=== PATIENT | female | born 1995 | race Caucasian/White ===

== ENCOUNTER 2017-07-14 00:28 | Emergency (ER) | payer BC, SELFPAY | END 2017-07-14 04:21 | disposition home or self-care (01) | PROVIDERS: Emergency Provider Emergency Medicine; Family Provider Family Medicine; Visit Provider Emergency Medicine | DX: K52.9 Noninfective gastroenteritis and colitis, unspecified (principal); R55 Syncope and collapse | CPT/HCPCS: 36415; 80053; 81001; 81025; 82150; 83690; 85025; 87275; 87276; 96365; 96367; 96375; 99284; J2405 ==

== ENCOUNTER 2017-08-17 17:20 | Emergency (ER) | payer BC, SELFPAY ==
[2017-08-17 18:48] VITALS: BP 139/88; PULSE 83; RESP 20; TEMP 36.9; O2SAT 100; BMI 31.9
--- NOTE | 2017-08-17 19:27 | HMH.EDUTC ---
[facility] [place] Impression: Sinusitis Qualifiers: Sinusitis location: maxillary Chronicity: acute Recurrence: not specified as recurrent Qualified Code(s): J01.00 - Acute maxillary sinusitis, unspecified Disposition: Home, Self-Care Condition on Discharge: Good Additional Instructions: Flonase [id number] Tylenol Motrin as needed for pain or fever If symptoms worsen or do not improve return or be seen in the ER follow-up with primary care this week if no improvement Prescriptions: Azithromycin [Zithromax 250mg tab] 250 mg PO DIRECTED #6 tab Referrals: Jonathan Walsh MD [Primary Care Provider] - Time of Disposition: 19:33 Medical Decision Making Vital Signs: 08/17/17 18:48 Temperature 98.4 F Temperature Source Temporal Artery Scan Pulse Rate [Radial] 83 Respiratory Rate 20 Blood Pressure [Right Arm] 139/88 Blood Pressure Mean [Right Arm] 105 Blood Pressure Source [Right Arm] Automatic Cuff Blood Pressure Position [Right Arm] Sitting 02 Sat by Pulse Oximetry 100 Oxygen Delivery Method Room Air - Braydon Inquiry Pt receiving controlled substance: No [facility] [place] - General Chief complaint: Urgent Treatment Center Stated complaint: sinus Time Seen by Provider: 08/17/17 19:27 Mode of Arrival: Ambulatory Source of Information: Patient Limitations: No Limitations Description of Symptoms (Recalled from Triage Doc. by RN): PT STATES SINUS HEADACHE AND DRINAGE X2 DAYS HEENT Symptoms (Recalled from RN notes): No Resp Symptoms (Recalled from RN notes): No Skin Symptoms (Recalled from RN notes): No MS Symptoms (Recalled from RN notes): No Functional Status (Recalled from RN notes): NA - Related Data Home Medications Medication Instructions Recorded Confirmed Norgestimate-Ethinyl Estradiol 1 mg PO DAILY 08/17/17 08/17/17 [Tri-Sprintec Tablet] Topiramate [Topiramate] 25 mg PO DAILY 08/17/17 08/17/17 Previous Rx's Medication Instructions Recorded Azithromycin [Zithromax 250mg 250 mg PO DIRECTED #6 tab 08/17/17 tab] Allergies Allergy/AdvReac Type Severity Reaction Status Date / Time No Known Allergies Allergy Verified 08/17/17 18:52 - Worker's Comp Is this a Worker's Comp case?: No [facility] History I have reviewed the patient's past medical history: Yes Amputation: No Fractures: No - *Social History Smoking Status: Never smoker Alcohol Intake: never - Psychiatric History Expresses thoughts of harming self/others: None Suicide Plan Description: No Plan ROS Obtained: Yes All systems reviewed & no additional complaints - Constitutional Constitutional: Reports system reviewed and no additional complaints, except as docu - Eyes Eyes: Reports system reviewed and no additional complaints, except as docu - ENT Ears, Nose, Mouth, and Throat: Reports system reviewed and no additional complaints, except as docu, Reports nasal congestion, Reports nasal discharge, Reports nose pain, Reports sinus pressure - Cardiovascular Cardiovascular: Reports system reviewed and no additional complaints, except as docu - Respiratory Respiratory: Yes system reviewed and no additional complaints, except as docu - Gastrointestinal Gastrointestingal: Reports: system reviewed and no additional complaints, except as docu - Musculoskeletal Musculoskeletal: Reports system reviewed and no additional complaints, except as docu - Integumentary/Breasts Skin/Breast: Reports system reviewed and no additional complaints, except as docu - Neurologic Neurologic: Reports system reviewed and no additional complaints, except as docu - Endocrine Endocrine: Reports system reviewed and no additional complaints, except as docu - Hematologic/Lymphatic Henatologic/Lymphatic: Reports system reviewed and no additional complaints, except as docu - Allergic/Immunologic Allergic/Immunologic: Reports system reviewed and no additional complaints, except as docu Physical Exam
--- NOTE | 2017-08-17 19:30 | ED_ITS ---
[facility] [place] Clinical Impression: Sinusitis Qualifiers: Sinusitis location: maxillary Chronicity: acute Recurrence: not specified as recurrent Qualified Code(s): J01.00 - Acute maxillary sinusitis, unspecified Disposition: Home, Self-Care Condition on Discharge: Good Additional Instructions: Flonase [id number] Tylenol Motrin as needed for pain or fever If symptoms worsen or do not improve return or be seen in the ER follow-up with primary care this week if no improvement Prescriptions: Azithromycin [Zithromax 250mg tab] 250 mg PO DIRECTED #6 tab Referrals: Jonathan Walsh MD [Primary Care Provider] - Time of Disposition: 19:33 Medical Decision Making Vital Signs: 08/17/17 18:48 Temperature 98.4 F Temperature Source Temporal Artery Scan Pulse Rate [Radial] 83 Respiratory Rate 20 Blood Pressure [Right Arm] 139/88 Blood Pressure Mean [Right Arm] 105 Blood Pressure Source [Right Arm] Automatic Cuff Blood Pressure Position [Right Arm] Sitting 02 Sat by Pulse Oximetry 100 Oxygen Delivery Method Room Air - Braydon Inquiry Pt receiving controlled substance: No [facility] [place] HPI - General Chief complaint: Urgent Treatment Center Stated complaint: sinus Time Seen by Provider: 08/17/17 19:27 Mode of Arrival: Ambulatory Source of Information: Patient Limitations: No Limitations Description of Symptoms (Recalled from Triage Doc. by RN): PT STATES SINUS HEADACHE AND DRINAGE X2 DAYS HEENT Symptoms (Recalled from RN notes): No Resp Symptoms (Recalled from RN notes): No Skin Symptoms (Recalled from RN notes): No MS Symptoms (Recalled from RN notes): No Functional Status (Recalled from RN notes): NA - Related Data Home Medications Medication Instructions Recorded Confirmed Norgestimate-Ethinyl Estradiol 1 mg PO DAILY 08/17/17 08/17/17 [Tri-Sprintec Tablet] Topiramate [Topiramate] 25 mg PO DAILY 08/17/17 08/17/17 Previous Rx's Medication Instructions Recorded Azithromycin [Zithromax 250mg 250 mg PO DIRECTED #6 tab 08/17/17 tab] Allergies Allergy/AdvReac Type Severity Reaction Status Date / Time No Known Allergies Allergy Verified 08/17/17 18:52 - Worker's Comp Is this a Worker's Comp case?: No [facility] History I have reviewed the patient's past medical history: Yes Amputation: No Fractures: No - *Social History Smoking Status: Never smoker Alcohol Intake: never - Psychiatric History Expresses thoughts of harming self/others: None Suicide Plan Description: No Plan ROS Obtained: Yes All systems reviewed & no additional complaints - Constitutional Constitutional: Reports system reviewed and no additional complaints, except as docu - Eyes Eyes: Reports system reviewed and no additional complaints, except as docu - ENT Ears, Nose, Mouth, and Throat: Reports system reviewed and no additional complaints, except as docu, Reports nasal congestion, Reports nasal discharge, Reports nose pain, Reports sinus pressure - Cardiovascular Cardiovascular: Reports system reviewed and no additional complaints, except as docu - Respiratory Respiratory: Yes system reviewed and no additional complaints, except as docu - Gastrointestinal Gastrointestingal: Reports: system reviewed and no additional complaints, except
== END 2017-08-17 19:40 | disposition home or self-care (01) ==
PROVIDERS: Emergency Provider Nurse Practitioner Family; Family Provider Family Medicine; PCP Family Medicine
DX: J01.00 Acute maxillary sinusitis, unspecified (principal); Z79.3 Long term (current) use of hormonal contraceptives; Z79.899 Other long term (current) drug therapy
CPT/HCPCS: 99201

== ENCOUNTER → 2017-10-12 14:02 | Outpatient (CLI) | payer BC, SELFPAY ==
--- NOTE | 2017-10-12 14:06 | XR_ITS ---
XR chest 2V HISTORY: ITS.REASON: COUGH ORDERING PHYSICIAN: Lino Castano MD PATIENT AGE: 22 years COMPARISON: None available FINDINGS: The cardiomediastinal silhouette and pulmonary vascularity are within normal limits. The lungs are clear without infiltrates, suspicious nodules, or pleural effusions. No acute bony abnormalities. IMPRESSION: Negative chest, no acute finding
== END ==
PROVIDERS: PCP Family Medicine; Visit Provider Family Medicine
DX: R05 Cough (principal)
CPT/HCPCS: 71046

== ENCOUNTER → 2018-05-05 07:57 | Outpatient (CLI) | payer OTHER, BC, SELFPAY ==
--- NOTE | 2018-05-05 08:00 | US_ITS ---
US abdomen limited HISTORY: Left upper quadrant pain nausea 2 weeks. Intolerance to food. Unremarkable. ORDERING PHYSICIAN: Flako Botello MD PATIENT AGE: 23 years Comparison: ( TECHNIQUE Sagittal, transverse and decubitus imaging of the gallbladder was performed. GALLBLADDER - minimal sludge No stones are evident. There is no gallbladder wall thickening. Gallbladder normal size 6.5 cm in length. Common duct is normal in diameter.. It measures less than 3 mm at hilum of liver. Liver: Unremarkable Pancreas: Unremarkable Right kidney: Unremarkable appearing. No hydronephrosis. 10 seem in length. Cortex well-maintained IMPRESSION: 1. Gallbladder. No gallstones. No wall thickening or inflammatory changes. Scant debris and sludge noted 2. Pancreas liver right kidney unremarkable
== END ==
PROVIDERS: Family Provider Family Medicine; PCP Family Medicine; Visit Provider Family Medicine
DX: R10.9 Unspecified abdominal pain (principal)
CPT/HCPCS: 76705

== ENCOUNTER → 2018-06-23 10:12 | Outpatient (CLI) | payer OTHER, BC, SELFPAY ==
--- NOTE | 2018-06-23 10:15 | NM_ITS ---
NM hepatobiliary wo pharm HISTORY: Abdominal pain with nausea and food intolerance ITS.REASON: EPIGASTRIC PAIN,GB SLUDGE ORDERING PHYSICIAN: Lino Castano MD PATIENT AGE: 23 years COMPARISON: None DOSE: 8.54 MCI TC Choletec Fatty Meal Ensure FINDINGS: Homogeneous activity is present within the hepatic parenchyma. Activity is present in the gallbladder by 10 minutes. Activity is present in the small bowel by 15 minutes. The gallbladder ejection fraction is calculated to be 28% The patient did report slight pain with the fatty meal. IMPRESSION: 1. No evidence of common or cystic duct obstruction. 2. The gallbladder ejection fraction is slightly low and the patient did report some mild pain with fatty meal. This may indicate gallbladder dyskinesia. Please correlate with clinical findings.
== END ==
PROVIDERS: PCP Family Medicine; Visit Provider Family Medicine
DX: R10.13 Epigastric pain (principal); K82.8 Other specified diseases of gallbladder
CPT/HCPCS: 78226; A9537

== ENCOUNTER → 2018-07-29 09:35 | Outpatient (CLI) | payer OTHER, BC, SELFPAY ==
[2018-07-29 10:27] LABS: Urine Pregnancy, HCG Qual. Negative (Negative)
[2018-07-29 10:52] LABS: Basophils % 0.3 % (0.1-2.0); Eosinophils # 0.2 K/mm3 (0.0-0.4); Eosinophils % 2.7 % (0.1-12.0); Hematocrit 39.6 % (37.0-47.0); Lymphocytes % 37.7 % (10-50); Mean Corpuscular HGB Conc 32.8 g/dL (31.8-35.4); Mean Corpuscular Hemoglobin 28.8 pg (27.0-31.2); Mean Corpuscular Volume 87.8 fl (81-99); Mean Platelet Volume 6.6 fl (7.4-10.4); Monocytes # 0.2 K/mm3 (0.1-1.0); Monocytes % 2.9 % (1.7-9.3); Neutrophils # 3.1 K/mm3 (1.8-7.8); Neutrophils % 56.4 % (37.0-80.0); Platelet Count 265 K/mm3 (142-424); Red Cell Distribution Width 13.5 % (11.5-17.5); White Blood Count 5.4 K/mm3 (4.8-10.8)
[2018-07-29 11:04] LABS: Alanine Aminotransferase 17 U/L (12-78); Albumin Level 3.4 gm/dL (3.4-5.0); Albumin/Globulin Ratio 0.9 (1.1-1.8); Alkaline Phosphatase 86 U/L (46-116); Anion Gap 13.3 mEq/L (5-15); Aspartate Amino Transferase 13 U/L (15-37); Bilirubin,Total 0.3 mg/dL (0.2-1.0); Blood Urea Nitrogen 12 mg/dL (7-18); Calcium 8.8 mg/dL (8.5-10.1); Carbon Dioxide 26 mmol/L (21.0-32.0); Chloride 104 mmol/L (98-107); Creatinine,Serum 0.76 mg/dL (0.55-1.02); Estimated Glomerular Filt Rate 94 ml/min (>60); GFR (African American) 114 ML/MIN (>60); Globulin 3.6 gm/dl (1.3-3.2); Glucose 83 mg/dL (74-106); Potassium 4.3 mmoL/L (3.5-5.1); Sodium 139 mmol/L (136-145)
== END ==
PROVIDERS: Visit Provider Surgery
DX: K82.8 Other specified diseases of gallbladder (principal)
CPT/HCPCS: 36415; 80053; 81025; 85025

== ENCOUNTER → 2018-10-20 15:54 | Outpatient (CLI) | payer OTHER, BC, SELFPAY ==
--- NOTE | 2018-10-20 15:58 | MR_ITS ---
MR knee RT wo con Ordering Physician: Lino Castano MD Patient Age: 23 years: Female HISTORY: ITS.REASON: PAIN IN RIGHT KNEE Positive Vishal's sign. Injury knee 10 years ago playing ball involve now constant medial side knee pain and pressure. No trauma. Pain with bending and extending. Popping at knee with loss. TECHNIQUE: Multiplanar multisequence imaging on 1.5 Xin MRI. No contrast utilized.) COMPARISON : Plain films right knee 10/11/2008 FINDINGS : Moderate to generous generous joint effusion most evident suprapatella bursa Patellofemoral Joint.:. Satisfactory patellofemoral relationships. Cartilage along Posterior patella appears to be well maintained.. No osteochondral defect. Normal contour. Medial Compartment.: Generous volume medial meniscus appears intact with no evidence of meniscal tear. Period Cartilage at medial compartment appears well-maintained. No chondral defects or scuffing.. No osteochondral defects. Lateral Compartment.Smaller lateral meniscus appears intact with no meniscal tear evident. Again the cartilage at the medial compartment is well-maintained. With no discrete no chondral defect ACL and PCL is intact. MCL and lateral collateral ligament intact. Quadriceps tendon intact. Popliteus tendon appears intact with minimal fluid along reflecting the joint effusion No loose bodies identified. No discrete plica identified at suprapatellar bursa Patellar tendon appears intact. Upper normal signal at its attachment on the tibial tubercle- I doubt this is of significance but noted. Only scant subtle edematous changes in the SQ tissues anterior to the patellar tendon and patella otherwise noted. IMPRESSION: ......... 1. Moderate to generous joint effusion at the right knee 2.. Otherwise right knee appears intact./. No significant findings otherwise ... Specifically No meniscal tear evident. Medial and lateral meniscus intact ... Cartilage well-maintained & intact at both medial & lateral compartment. Patellofemoral joint intact.. Ligaments intact. .
== END ==
PROVIDERS: PCP Family Medicine; Visit Provider Family Medicine
DX: M25.561 Pain in right knee (principal); S83.206A Unspecified tear of unspecified meniscus, current injury, right knee, initial encounter
CPT/HCPCS: 73721

== ENCOUNTER → 2018-11-12 14:43 | Outpatient (CLI) | payer OTHER, BC, SELFPAY ==
[2018-11-12 14:56] LABS: Basophils % 0.3 % (0.1-2.0); Eosinophils # 0.1 K/mm3 (0.0-0.4); Eosinophils % 1.6 % (0.1-12.0); Hematocrit 39.7 % (37.0-47.0); Hemoglobin 13.5 g/dL (12.2-16.2); Lymphocytes # 2.8 K/mm3 (0.7-4.5); Lymphocytes % 34.3 % (10-50); Mean Corpuscular Hemoglobin 29.5 pg (27.0-31.2); Mean Corpuscular Volume 86.5 fl (81-99); Mean Platelet Volume 6.8 fl (7.4-10.4); Monocytes # 0.2 K/mm3 (0.1-1.0); Neutrophils # 4.9 K/mm3 (1.8-7.8); Neutrophils % 60.8 % (37.0-80.0); Platelet Count 273 K/mm3 (142-424); Red Blood Count 4.58 M/mm3 (4.20-5.40); Red Cell Distribution Width 12.8 % (11.5-17.5); White Blood Count 8.1 K/mm3 (4.8-10.8)
[2018-11-12 15:58] LABS: Uric Acid 3.9 mg/dL (2.6-7.2)
[2018-11-12 16:17] LABS: C-Reactive Protein < 0.2 mg/L (0.0-0.9)
[2018-11-15 13:43] LABS: Clarity,Fluid Hazy (Clear); Color,Fluid Straw (Yellow); Eosinophils,Fluid 0 % (Not Estab.); Lymphocytes,Fluid 10 % (Not Estab.); Macrophages,Fluid 6 % (Not Estab.); Nucleated cells, Syn. Fluid 4606 cells/uL (0-200); Polys,Fluid 84 % (Not Estab.); RBC,Fluid 2000 /uL (Not Estab.)
[2018-11-15 15:02] LABS: RA Latex Turbid. <10.0 IU/mL (0.0-13.9)
[2018-11-18 07:23] LABS: Antinuclear Antibodies, IFA Negative (.)
== END ==
PROVIDERS: Orthopaedic Surgery; Visit Provider Family Medicine
DX: M25.561 Pain in right knee (principal)
CPT/HCPCS: 36415; 84550; 85025; 86038; 86140; 86431; 87070; 87205; 89051

== ENCOUNTER → 2018-11-13 07:46 | Outpatient (CLI) | payer OTHER, BC, SELFPAY ==
[2018-11-13 08:40] LABS: Alanine Aminotransferase 23 U/L (12-78); Albumin Level 3.8 gm/dL (3.4-5.0); Albumin/Globulin Ratio 1.1 (1.1-1.8); Alkaline Phosphatase 86 U/L (46-116); Aspartate Amino Transferase 11 U/L (15-37); Bilirubin,Total 0.4 mg/dL (0.2-1.0); Blood Urea Nitrogen 14 mg/dL (7-18); Carbon Dioxide 28 mmol/L (21.0-32.0); Chloride 103 mmol/L (98-107); Creatinine,Serum 0.85 mg/dL (0.55-1.02); Estimated Glomerular Filt Rate 83 ml/min (>60); GFR (African American) 100 ML/MIN (>60); Globulin 3.6 gm/dl (1.3-3.2); Glucose 80 mg/dL (74-106); Sodium 140 mmol/L (136-145); Total Protein,Serum 7.4 gm/dL (6.4-8.2)
[2018-11-13 09:15] LABS: Erythrocyte Sedimentation Rate 21 mm/hr (0-20)
[2018-11-16 10:15] LABS: Anti-Cyclic Citrullinated Pept 4 units (0-19)
== END ==
PROVIDERS: Visit Provider Orthopaedic Surgery
DX: M25.561 Pain in right knee (principal)
CPT/HCPCS: 36415; 80053; 85651; 86200

== ENCOUNTER → 2018-11-17 10:05 | Outpatient (CLI) | payer OTHER, BC, SELFPAY ==
--- NOTE | 2018-11-17 10:08 | XR_ITS ---
XR knee RT 4V HISTORY: Knee pain ITS.REASON: ap, lateral, sunrise, daugherty weight bearing ORDERING PHYSICIAN: Jaleesa Torres MD PATIENT AGE: 23 years COMPARISON: None FINDINGS: No fracture or dislocation. No lytic or blastic change. Normal mineralization. No significant arthritic changes evident. Small suprapatellar effusion is suspected IMPRESSION: Small suprapatellar effusion otherwise negative right knee
== END ==
PROVIDERS: PCP Family Medicine; Visit Provider Orthopaedic Surgery
DX: M25.561 Pain in right knee (principal)
CPT/HCPCS: 73564

== ENCOUNTER → 2019-09-23 14:57 | Outpatient (CLI) | payer OTHER, BC, SELFPAY ==
--- NOTE | 2019-09-23 15:01 | CT_ITS ---
PROCEDURE: CT SINUS WO CON CLINICAL HISTORY: RECURRENT SINUSITIS COMPARISON: SINUS CT SINUS (MAX-FACIAL W/O CONT) from 04/24/2017 TECHNIQUE: Axial images obtained with sagittal and coronal reformats. All CT scans at the facility use one or more dose reduction, viz: automated exposure control, ma/kV adjustment per patient size (including targeted exams where dose is matched to indication, i.e. head), or iterative reconstruction technique. FINDINGS: There is moderate opacification of the right frontal sinus with opacified anterior frontal ethmoid air cell. There is moderate opacification also of the left aspect of the ethmoid sinuses centrally. There is an air-fluid level in the left maxillary sinus with severe mucosal thickening of the left maxillary sinus. There is a small air-fluid level in the right maxillary sinus with moderate to severe mucosal thickening. Sphenoid sinuses are. No mastoid effusion evident. No significant nasal septal deviation. The left OMC is occluded. There is narrowing of the right OMC. There is a small right natasha bullosa. There are scattered small cervical lymph nodes. The right TMJ is unremarkable. There are mild osteoarthritic changes of the left TMJ. The orbits have an unremarkable appearance IMPRESSION: 1. Sinusitis as described above which is worse than when compared to the previous exam. 2. Mild left TMJ osteoarthritic change Dictated by: Ivan Myles MD 09/23/2019 16:43 Electronically signed by Ivan Myles MD in [place] 09/23/2019 16:43
== END ==
PROVIDERS: PCP Family Medicine; Visit Provider Family Medicine
DX: J01.01 Acute recurrent maxillary sinusitis (principal)
CPT/HCPCS: 70486

== ENCOUNTER → 2019-11-23 08:24 | Outpatient (CLI) | payer OTHER, BC, SELFPAY ==
--- NOTE | 2019-11-23 08:29 | CT_ITS ---
PROCEDURE: CT SINUS WO CON CLINICAL HISTORY: CHRONIC FRONTAL SINUSITIS Pain and congestion, pressure COMPARISON: No exams were available for comparison TECHNIQUE: Axial images obtained with sagittal and coronal reformats. All CT scans at the facility use one or more dose reduction, viz: automated exposure control, ma/kV adjustment per patient size (including targeted exams where dose is matched to indication, i.e. head), or iterative reconstruction technique. FINDINGS: Previously noted opacification of the right frontal, ethmoid, and maxillary sinuses has resolved. There remains a retention cyst in the left maxillary sinus posteriorly at 13 mm. No air-fluid levels or significant mucosal thickening is evident. There is only some minimal mucosal thickening of the floor the left maxillary sinus at 2 mm. The ostiomeatal complexes are patent. No significant nasal septal deviation. No mastoid effusion. There is some mild osteoarthritic changes of the left TMJ IMPRESSION: Marked improvement in the paranasal sinusitis. There is a small left maxillary retention cyst with only minimal thickening of the inferior wall of the left maxillary sinus Dictated by: Ivan Myles MD 11/23/2019 08:45 Electronically signed by Ivan Myles MD in [facility] 11/23/2019 08:45
== END ==
PROVIDERS: PCP Family Medicine; Visit Provider Otolaryngology
DX: J32.2 Chronic ethmoidal sinusitis (principal); J32.0 Chronic maxillary sinusitis; J32.1 Chronic frontal sinusitis
CPT/HCPCS: 70486

== ENCOUNTER → 2019-11-30 10:58 | Outpatient (CLI) | payer OTHER, BC, SELFPAY ==
[2019-11-30 12:06] LABS: Thyroid Stimulating Hormone 1.14 uIU/mL (0.465-4.68)
== END ==
PROVIDERS: Visit Provider Family Medicine
DX: Z68.35 Body mass index [BMI] 35.0-35.9, adult (principal); E66.9 Obesity, unspecified
CPT/HCPCS: 36415; 84443

== ENCOUNTER → 2020-07-24 09:27 | Outpatient (POV) | payer OTHER, BC, SELFPAY | PROVIDERS: Visit Provider Dermatology | DX: Z00.00 Encounter for general adult medical examination without abnormal findings (principal) ==

== ENCOUNTER → 2020-07-24 19:19 | Outpatient (CLI) | payer OTHER, BC, SELFPAY | PROVIDERS: PCP Nurse Practitioner Family; Visit Provider Nurse Practitioner Family | DX: Z03.818 Encounter for observation for suspected exposure to other biological agents ruled out (principal) | CPT/HCPCS: U0003 ==

== ENCOUNTER → 2020-07-26 11:03 | Outpatient (CLI) | payer OTHER, BC, SELFPAY ==
[2020-07-26 11:54] LABS: Basophils % 0.4 % (0.1-2.0); Eosinophils % 0.6 % (0.1-12.0); Hematocrit 40.6 % (37.0-47.0); Hemoglobin 12.9 g/dL (12.2-16.2); Lymphocytes # 0.5 K/mm3 (0.7-4.5); Lymphocytes % 15.2 % (10-50); Mean Corpuscular HGB Conc 31.8 g/dL (31.8-35.4); Mean Corpuscular Hemoglobin 28.5 pg (27.0-31.2); Mean Corpuscular Volume 89.7 fl (81-99); Mean Platelet Volume 6.8 fl (7.4-10.4); Monocytes # 0.2 K/mm3 (0.1-1.0); Neutrophils # 2.7 K/mm3 (1.8-7.8); Neutrophils % 76.8 % (37.0-80.0); Platelet Count 205 K/mm3 (142-424); Red Blood Count 4.53 M/mm3 (4.20-5.40); Red Cell Distribution Width 12.4 % (11.5-17.5); White Blood Count 3.5 K/mm3 (4.8-10.8)
== END ==
PROVIDERS: PCP Family Medicine; Visit Provider Physician Assistant
DX: Z20.828 Contact with and (suspected) exposure to other viral communicable diseases (principal); U07.1 COVID-19
CPT/HCPCS: 36415; 85025; 87275; 87276; U0003

== ENCOUNTER → 2020-11-19 10:03 | Outpatient (CLI) | payer OTHER, BC, SELFPAY ==
--- NOTE | 2020-11-19 10:07 | XR_ITS ---
PROCEDURE: XR KNEE RT 4V CLINICAL INDICATION: RT knee pain COMPARISON: No exams were available for comparison FINDINGS: No fracture or dislocation. No lytic or blastic change. There is normal mineralization. The joint spaces are well-preserved. No significant degenerative/arthritic changes. No erosive changes evident. Other findings:There is some increased density in the suprapatellar region which may indicate a small effusion IMPRESSION: Possible small suprapatellar effusion otherwise negative Dictated by: Ivan Myles MD 11/19/2020 10:50 Ivan Myles MD in [place] 11/19/2020 10:50
== END ==
PROVIDERS: PCP Family Medicine; Visit Provider Orthopaedic Surgery
DX: M25.561 Pain in right knee (principal)
CPT/HCPCS: 73564

== ENCOUNTER → 2020-11-26 16:08 | Outpatient (CLI) | payer OTHER, BC, SELFPAY ==
[2020-11-26 17:07] LABS: HCG Qualitative, Serum Negative (Negative)
[2020-11-26 17:32] LABS: HCG,Quantitative < 2 mIU/ml (0-5.42)
== END ==
PROVIDERS: Visit Provider Nurse Practitioner Family
DX: N92.6 Irregular menstruation, unspecified (principal)
CPT/HCPCS: 84702; 84703

== ENCOUNTER → 2021-01-13 09:20 | Outpatient (CLI) | payer OTHER, BC, SELFPAY ==
[2021-01-13 09:33] VITALS: BMI 26.6
== END ==
PROVIDERS: PCP Family Medicine; Visit Provider Nurse Practitioner
DX: J32.9 Chronic sinusitis, unspecified (principal)

== ENCOUNTER → 2021-02-05 09:33 | Outpatient (POV) | payer OTHER, BC, SELFPAY | PROVIDERS: Visit Provider Dermatology | DX: Z00.00 Encounter for general adult medical examination without abnormal findings (principal) ==

== ENCOUNTER → 2021-02-14 10:40 | Outpatient (CLI) | payer OTHER, BC, SELFPAY ==
[2021-02-14 11:20] LABS: Basophils % 0.4 % (0.1-2.0); Eosinophils # 0.1 K/mm3 (0.0-0.4); Eosinophils % 1.5 % (0.1-12.0); Hematocrit 40.9 % (37.0-47.0); Hemoglobin 13.6 g/dL (12.2-16.2); Lymphocytes # 2.9 K/mm3 (0.7-4.5); Lymphocytes % 38.6 % (10-50); Mean Corpuscular HGB Conc 33.4 g/dL (31.8-35.4); Mean Corpuscular Hemoglobin 29.1 pg (27.0-31.2); Mean Corpuscular Volume 87.1 fl (81-99); Mean Platelet Volume 6.9 fl (7.4-10.4); Monocytes # 0.3 K/mm3 (0.1-1.0); Monocytes % 3.4 % (1.7-9.3); Neutrophils # 4.2 K/mm3 (1.8-7.8); Neutrophils % 56.2 % (37.0-80.0); Platelet Count 282 K/mm3 (142-424); Red Blood Count 4.69 M/mm3 (4.20-5.40); Red Cell Distribution Width 13.2 % (11.5-17.5); White Blood Count 7.4 K/mm3 (4.8-10.8)
[2021-02-14 11:30] LABS: Prothrombin Time 11.1 seconds (10.1-12.5)
[2021-02-14 11:31] LABS: INR 0.94 (0.9-1.1)
[2021-02-14 11:56] LABS: Chloride 102 mmol/L (98-107)
[2021-02-14 11:57] LABS: Potassium 4.2 mmoL/L (3.5-5.1); Sodium 140 mmol/L (136-145)
[2021-02-14 11:59] LABS: Alanine Aminotransferase 106 U/L (12-78); Alkaline Phosphatase 147 U/L (38-126); Anion Gap 12.2 mEq/L (5-15); Aspartate Amino Transferase 58 U/L (14-36); Bilirubin,Total 0.6 mg/dl (0.2-1.3); Blood Urea Nitrogen 16 mg/dl (7-17); Carbon Dioxide 30 mmol/L (22.0-30.0); Estimated Glomerular Filt Rate 102 ml/min (>60); GFR (African American) 123 ML/MIN (>60); Iron 105 ug/dL (37-170)
[2021-02-14 12:00] LABS: HCG Qualitative, Serum Negative (Negative)
[2021-02-14 12:00] LABS: Albumin Level 4.7 g/dl (3.5-5.0); Albumin/Globulin Ratio 1.6 (1.1-1.8); Calcium 9.4 mg/dl (8.4-10.2); Glucose 79 mg/dl (74-100); Total Protein,Serum 7.7 g/dl (6.3-8.2)
[2021-02-14 12:15] LABS: Total Iron Binding Capacity 369 ug/dL (265-497)
[2021-02-14 12:34] LABS: Ferritin 35.1 ng/ml (6.24-137)
[2021-02-15 08:14] LABS: Ceruloplasmin 29.4 mg/dL (19.0-39.0); Immunoglobulin A, Qn 150 mg/dL (87-352); Immunoglobulin G, Qn 1070 mg/dL (586-1602); Immunoglobulin M, Qn 179 mg/dL (26-217)
[2021-02-15 14:12] LABS: Actin (Smooth Muscle) Antibody 5 Units (0-19); Mitochondrial (M2) Antibody <20.0 Units (0.0-20.0)
[2021-02-15 18:03] LABS: Deamidated Gliadin Abs, IgA 5 units (0-19); Deamidated Gliadin Abs, IgG 3 units (0-19); Endomysial IgA Antibody Negative (Negative); Liver-Kidney Microsomal Ab 1.2 Units (0.0-20.0); Tissue Transglutaminase IgA Ab <2 U/mL (0-3); Tissue Transglutaminase IgG Ab 3 U/mL (0-5)
[2021-02-18 12:11] LABS: ALT (SGPT) P5P 98 IU/L (0-40); AST (SGOT) P5P 48 IU/L (0-40); Alpha 2-Macroglobulins, Qn 186 mg/dL (110-276); Apolipoprotein A-1 182 mg/dL (116-209); Bilirubin, Total 0.3 mg/dL (0.0-1.2); Cholesterol, Total 180 mg/dL (100-199); Fibrosis Score 0.02 (0.00-0.21); GGT 15 IU/L (0-60); Glucose 83 mg/dL (65-99); Haptoglobin 187 mg/dL (33-278); Steatosis Grade S1 - Mild Steatosis (.); Steatosis Score 0.42 (0.00-0.30); Triglycerides 137 mg/dL (0-149)
[2021-02-19 15:10] LABS: Alpha-1-Antitrypsin 154 mg/dL (100-188)
[2021-02-20 07:49] LABS: Reticulin IgA Antibody Negative titer (Neg:<1:2.5)
== END ==
PROVIDERS: Physician Assistant; Visit Provider Nurse Practitioner Family
DX: K76.0 Fatty (change of) liver, not elsewhere classified (principal); R94.5 Abnormal results of liver function studies; N92.6 Irregular menstruation, unspecified
CPT/HCPCS: 36415; 80053; 81256; 82103; 82104; 82390; 82728; 82784; 83516; 83540; 83550; 84703; 85025; 85610; 86255; 86256; 86376

== ENCOUNTER → 2021-02-19 10:03 | Outpatient (CLI) | payer OTHER, BC, SELFPAY ==
--- NOTE | 2021-02-19 10:06 | US_ITS ---
PROCEDURE: US ABDOMEN LIMITED CLINICAL INDICATION: ABN LIVER FUNCTION,BLOATING,NAUSEA COMPARISON: US ABD US abdomen limited from 05/05/2018 FINDINGS: PANCREAS: Unremarkable. No obvious mass or abnormal fluid collection. No ductal dilatation LIVER: No focal liver lesions demonstrated. Homogeneous echogenicity. No intrahepatic biliary ductal dilatation evident. There is appropriate direction of blood flow within a non dilated portal vein RIGHT KIDNEY: Unremarkable. Normal size and echogenicity. No hydronephrosis GALLBLADDER: Status post cholecystectomy. Common bile duct is normal at 3 mm. IMPRESSION: Unremarkable limited abdominal ultrasound as detailed above disc Dictated by: Ivan Myles MD 02/19/2021 15:21 Ivan Myles MD in [place] 02/19/2021 15:21
== END ==
PROVIDERS: PCP Family Medicine; Visit Provider Nurse Practitioner Family
DX: R94.5 Abnormal results of liver function studies (principal); R14.0 Abdominal distension (gaseous); R11.0 Nausea
CPT/HCPCS: 76705

== ENCOUNTER → 2021-04-04 10:48 | Outpatient (CLI) | payer OTHER, BC, SELFPAY | PROVIDERS: PCP Nurse Practitioner Family; Visit Provider Nurse Practitioner | DX: Z20.822 Contact with and (suspected) exposure to COVID-19 (principal) ==

== ENCOUNTER → 2021-04-04 10:52 | Outpatient (CLI) | payer OTHER, SELFPAY ==
[2021-04-04 11:28] LABS: Coronavirus 19, PCR Not Detected (NotDetected); Influenza A, PCR Not Detected (NotDetected); Influenza B, PCR Not Detected (NotDetected)
== END ==
PROVIDERS: PCP Nurse Practitioner Family; Visit Provider Nurse Practitioner Family
DX: Z20.822 Contact with and (suspected) exposure to COVID-19 (principal); J02.0 Streptococcal pharyngitis
CPT/HCPCS: C9803; U0003; U0005

== ENCOUNTER → 2021-04-08 16:59 | Outpatient (CLI) | payer OTHER, SELFPAY ==
[2021-04-10 08:28] LABS: RA Latex Turbid. <10.0 IU/mL (0.0-13.9); Thyroid Peroxidase Antibodies 25 IU/mL (0-34)
[2021-04-10 15:26] LABS: Thyroglobulin Level <1.0 IU/mL (0.0-0.9)
[2021-04-10 22:55] LABS: Antinuclear Antibodies, IFA Negative (.)
[2021-04-11 00:07] LABS: Anti-Cyclic Citrullinated Pept 6 units (0-19)
[2021-04-12 00:07] LABS: QuantiFERON-TB Gold Plus Positive (Negative)
== END ==
PROVIDERS: Visit Provider Internal Medicine
DX: M25.50 Pain in unspecified joint (principal); R53.83 Other fatigue
CPT/HCPCS: 36415; 82306; 86038; 86200; 86376; 86431; 86480; 86800

== ENCOUNTER → 2021-07-23 14:04 | Outpatient (CLI) | payer OTHER, SELFPAY ==
[2021-07-23 15:36] LABS: HCG,Quantitative < 2 mIU/ml (0-5.42)
== END ==
PROVIDERS: Visit Provider Nurse Practitioner Obstetrics & Gynecology
DX: N92.6 Irregular menstruation, unspecified (principal)
CPT/HCPCS: 36415; 84702

== ENCOUNTER → 2021-08-08 09:25 | Outpatient (CLI) | payer OTHER, SELFPAY ==
[2021-08-08 10:27] LABS: Chloride 103 mmol/L (98-107)
[2021-08-08 10:28] LABS: Potassium 4.2 mmoL/L (3.5-5.1); Sodium 138 mmol/L (136-145)
[2021-08-08 10:44] LABS: Alanine Aminotransferase 22 U/L (12-78); Aspartate Amino Transferase 33 U/L (14-36); Blood Urea Nitrogen 16 mg/dl (7-17); Estimated Glomerular Filt Rate 101 ml/min (>60); GFR (African American) 122 ML/MIN (>60)
[2021-08-08 10:45] LABS: Albumin Level 4.3 g/dl (3.5-5.0); Albumin/Globulin Ratio 1.5 (1.1-1.8); Alkaline Phosphatase 105 U/L (38-126); Anion Gap 11.2 mEq/L (5-15); Bilirubin,Total 0.8 mg/dl (0.2-1.3); Calcium 8.8 mg/dl (8.4-10.2); Carbon Dioxide 28 mmol/L (22.0-30.0); Globulin 2.8 g/dL (1.3-3.2); Glucose 79 mg/dl (74-100); Total Protein,Serum 7.1 g/dl (6.3-8.2)
== END ==
PROVIDERS: PCP Family Medicine; Visit Provider Internal Medicine Infectious Disease
DX: R79.89 Other specified abnormal findings of blood chemistry (principal); R76.12 Nonspecific reaction to cell mediated immunity measurement of gamma interferon antigen response without active tuberculosis
CPT/HCPCS: 36415; 80053

== ENCOUNTER → 2021-08-12 13:20 | Outpatient (CLI) | payer OTHER, SELFPAY ==
[2021-08-12 14:52] LABS: Adenovirus,PCR Not Detected (NotDetected); Bordetella Pertussis Not Detected (NotDetected); Chlamydophila Pneumoniae, PCR Not Detected (NotDetected); Coronavirus 19, PCR Not Detected (NotDetected); Coronavirus 229E Not Detected (NotDetected); Coronavirus NL63 Not Detected (NotDetected); Coronavirus OC43 Not Detected (NotDetected); Coronovirus HKU1,PCR Not Detected (NotDetected); Human Metapneumovirus Not Detected (NotDetected); Influenza A, PCR Not Detected (NotDetected); Influenza AH1, 2009 Not Detected (NotDetected); Influenza AH1, PCR Not Detected (NotDetected); Influenza AH3,PCR Not Detected (NotDetected); Influenza B, PCR Not Detected (NotDetected); Mycoplasma Pneumoniae, PCR Not Detected (NotDetected); Parainfluenza 1, PCR Not Detected (NotDetected); Parainfluenza 2, PCR Not Detected (NotDetected); Parainfluenza 3, PCR Not Detected (NotDetected); Parainfluenza 4, PCR Not Detected (NotDetected); Respiratory Syncytial Virus Not Detected (NotDetected); Rhinovirus/Enterovirus Not Detected (NotDetected)
[2021-08-12 15:04] LABS: Basophils # 0.1 K/mm3 (0-0.2); Basophils % 1.2 % (0.1-2.0); Eosinophils # 0.1 K/mm3 (0.0-0.4); Eosinophils % 1.2 % (0.1-12.0); Hematocrit 44.6 % (37.0-47.0); Hemoglobin 14.3 g/dL (12.2-16.2); Lymphocytes # 1.9 K/mm3 (0.7-4.5); Lymphocytes % 28.9 % (10-50); Mean Corpuscular Hemoglobin 29.3 pg (27.0-31.2); Mean Corpuscular Volume 91.6 fl (81-99); Monocytes # 0.2 K/mm3 (0.1-1.0); Monocytes % 3.7 % (1.7-9.3); Neutrophils # 4.2 K/mm3 (1.8-7.8); Neutrophils % 64.9 % (37.0-80.0); Platelet Count 278 K/mm3 (142-424); Red Blood Count 4.87 M/mm3 (4.20-5.40); Red Cell Distribution Width 13.5 % (11.5-17.5); White Blood Count 6.5 K/mm3 (4.8-10.8)
== END ==
PROVIDERS: PCP Nurse Practitioner Family; Visit Provider Nurse Practitioner Family
DX: Z20.822 Contact with and (suspected) exposure to COVID-19 (principal)
CPT/HCPCS: 36415; 85025; 87581; 87632; 87798; C9803; U0003; U0005

== ENCOUNTER → 2021-09-05 08:53 | Outpatient (CLI) | payer OTHER, SELFPAY ==
[2021-09-05 10:04] LABS: Chloride 102 mmol/L (98-107); Potassium 4.3 mmoL/L (3.5-5.1); Sodium 136 mmol/L (136-145)
[2021-09-05 10:06] LABS: Alanine Aminotransferase 26 U/L (12-78); Aspartate Amino Transferase 33 U/L (14-36); Blood Urea Nitrogen 14 mg/dl (7-17); Estimated Glomerular Filt Rate 87 ml/min (>60); GFR (African American) 105 ML/MIN (>60)
[2021-09-05 10:07] LABS: Albumin Level 4.4 g/dl (3.5-5.0); Albumin/Globulin Ratio 1.6 (1.1-1.8); Alkaline Phosphatase 110 U/L (38-126); Anion Gap 10.3 mEq/L (5-15); Bilirubin,Total 0.7 mg/dl (0.2-1.3); Calcium 8.6 mg/dl (8.4-10.2); Carbon Dioxide 28 mmol/L (22.0-30.0); Globulin 2.8 g/dL (1.3-3.2); Glucose 73 mg/dl (74-100); Total Protein,Serum 7.2 g/dl (6.3-8.2)
== END ==
PROVIDERS: PCP Family Medicine; Referring Provider Internal Medicine Infectious Disease; Visit Provider Nurse Practitioner Family
DX: R94.5 Abnormal results of liver function studies (principal); K75.81 Nonalcoholic steatohepatitis (NASH)
CPT/HCPCS: 36415; 80053

== ENCOUNTER → 2021-10-17 12:56 | Outpatient (CLI) | payer OTHER, SELFPAY ==
--- NOTE | 2021-10-17 15:04 | US_ITS ---
FINAL REPORT CLINICAL HISTORY: Severe Lower Pelvic Pain FINDINGS: Transvaginal sonographic images of the pelvis were obtained. The uterus measures 6.2 x 2.9 x 4.1 cm. The right ovary measures 3.1 x 2.2 x 2.7 cm. The left ovary measures 3.1 x 2.3 x 2.1 cm. There are multiple small follicles in both ovaries, may represent PCOS. There is a small amount of pelvic free fluid, may be physiologic or reactive. IMPRESSION: Findings may represent PCOS. Reviewed, Interpreted and Dictated by Camron Virgen III, MD Transcribed by Lia Pathak Authenticated by Camron Virgen III, MD on 10/17/2021 04:42:57 PM [facility]
== END ==
PROVIDERS: PCP Family Medicine; Visit Provider Nurse Practitioner Obstetrics & Gynecology
DX: R10.2 Pelvic and perineal pain (principal)
CPT/HCPCS: 76830

== ENCOUNTER → 2021-11-05 09:18 | Outpatient (CLI) | payer OTHER, SELFPAY ==
[2021-11-05 10:39] LABS: Alanine Aminotransferase 31 U/L (12-78); Albumin Level 3.9 g/dl (3.5-5.0); Albumin/Globulin Ratio 1.6 (1.1-1.8); Alkaline Phosphatase 92 U/L (38-126); Anion Gap 8.4 mEq/L (5-15); Aspartate Amino Transferase 29 U/L (14-36); Bilirubin,Total 0.5 mg/dl (0.2-1.3); Blood Urea Nitrogen 10 mg/dl (7-17); Calcium 8.3 mg/dl (8.4-10.2); Carbon Dioxide 29 mmol/L (22.0-30.0); Chloride 104 mmol/L (98-107); Estimated Glomerular Filt Rate 101 ml/min (>60); GFR (African American) 122 ML/MIN (>60); Globulin 2.5 g/dL (1.3-3.2); Glucose 93 mg/dl (74-100); Potassium 3.4 mmoL/L (3.5-5.1); Sodium 138 mmol/L (136-145); Total Protein,Serum 6.4 g/dl (6.3-8.2)
== END ==
PROVIDERS: Visit Provider Nurse Practitioner Family
DX: K75.81 Nonalcoholic steatohepatitis (NASH) (principal); R94.5 Abnormal results of liver function studies
CPT/HCPCS: 36415; 80053

== ENCOUNTER → 2021-12-10 14:29 | Outpatient (CLI) | payer OTHER, SELFPAY ==
[2021-12-10 15:11] LABS: Strep Scrn Group A (Rapid) Negative (Negative)
== END ==
PROVIDERS: PCP Family Medicine; Visit Provider Nurse Practitioner
DX: J02.9 Acute pharyngitis, unspecified (principal)
CPT/HCPCS: 87430

== ENCOUNTER 2022-02-12 08:00 | Outpatient (RCR) | payer OTHER, SELFPAY | END 2022-02-12 08:05 | disposition home or self-care (01) | LOC: PT 08:00 | PROVIDERS: PCP Family Medicine | DX: M79.11 Myalgia of mastication muscle (principal) | CPT/HCPCS: 20560; 97014; 97035; 97163; G0283 ==

== ENCOUNTER → 2022-03-25 12:55 | Outpatient (CLI) | payer OTHER, SELFPAY ==
[2022-03-25 14:57] LABS: HCG,Quantitative < 2 mIU/ml (0-5.42)
[2022-03-27 11:32] LABS: Progesterone 6.3 ng/mL (.)
== END ==
PROVIDERS: PCP Family Medicine; Visit Provider Obstetrics & Gynecology
DX: N92.6 Irregular menstruation, unspecified (principal)
CPT/HCPCS: 36415; 84144; 84702

== ENCOUNTER → 2022-04-08 07:58 | Outpatient (CLI) | payer OTHER, SELFPAY ==
--- NOTE | 2022-04-08 07:58 | FL_ITS ---
FINAL REPORT TECHNIQUE: The referring physician performed an HSG with injection of contrast. Spot films were obtained. CLINICAL HISTORY: female infertility disorder Fluoro TIme 0:014 min FINDINGS: Uterine configuration is normal. Filling defects in the uterine cavity presumably are air bubbles. Free spillage of contrast into both fallopian tubes in the pelvis. IMPRESSION: No evidence of tubal occlusive disease. Three spot films were submitted. 14 seconds of fluoroscopy time. Please see gynecologic notes for additional details. Reviewed, Interpreted and Dictated by Jonathan Ro MD Transcribed by Junior Bustamante Authenticated and [facility]
--- NOTE | 2022-04-08 08:50 | P.PCN_ITS ---
[facility] Procedure Note Date: 04/08/22 Time: 08:35 Procedure Note:: Patient was positioned in the dorsal lithotomy position. Speculum was inserted. Cervix and vagina was cleansed with betadine swabs x 3. Tenaculum was placed on anterior lip of the cervix. 10 cc of contrast was drawn up into a syringe and attached to the Mikael HSG cannula. Contrast was flushed through cannula to remove air bubbles and ensure patency. Cannula was then inserted into the cervix. Fluoroscopy was initiated with 2 cc of contrast injected into the endometrial cavity. Fluoroscopy demonstrated contrast immediately flowing from endometrial cavity through bilateral fallopian tubes revealing patent bilateral fallopian tubes. Cannula was removed from the cervix. Tenaculum was removed from the cervix. Small amount of oozing noted from right tenaculum site. Pressure applied to tenaculum site with sponge stick. Reevaluation of tenaculum site demonstrated hemostasis. Speculum removed from the vagina. Patient tolerated the procedure well.
== END | disposition home or self-care (01) ==
PROVIDERS: PCP Family Medicine; Visit Provider Obstetrics & Gynecology
DX: N97.8 Female infertility of other origin (principal)
CPT/HCPCS: 74740; Q9967

== ENCOUNTER → 2022-05-07 16:08 | Outpatient (CLI) | payer OTHER, SELFPAY ==
[2022-05-07 16:51] LABS: Chloride 101 mmol/L (98-107); Sodium 140 mmol/L (136-145)
[2022-05-07 16:54] LABS: Alanine Aminotransferase 17 U/L (12-78); Albumin Level 4.3 g/dl (3.5-5.0); Albumin/Globulin Ratio 1.5 (1.1-1.8); Alkaline Phosphatase 133 U/L (38-126); Aspartate Amino Transferase 25 U/L (14-36); Bilirubin,Total 0.4 mg/dl (0.2-1.3); Blood Urea Nitrogen 15 mg/dl (7-17); Calcium 8.7 mg/dl (8.4-10.2); Carbon Dioxide 31 mmol/L (22.0-30.0); Estimated Glomerular Filt Rate 86 ml/min (>60); GFR (African American) 104 ML/MIN (>60); Globulin 2.8 g/dL (1.3-3.2); Glucose 86 mg/dl (74-100); Total Protein,Serum 7.1 g/dl (6.3-8.2)
[2022-05-07 17:21] LABS: HCG,Quantitative < 2 mIU/ml (0-5.42)
[2022-05-09 08:16] LABS: Progesterone 3.2 ng/mL (.)
== END ==
PROVIDERS: Nurse Practitioner Family; PCP Family Medicine; Visit Provider Obstetrics & Gynecology
DX: N92.6 Irregular menstruation, unspecified (principal)
CPT/HCPCS: 36415; 80053; 84144; 84702

== ENCOUNTER 2022-06-05 07:59 | Emergency (ER) | payer OTHER, SELFPAY ==
[2022-06-05 08:05] VITALS: BP 126/88; PULSE 125; RESP 18; TEMP 36.8; O2SAT 100; BMI 38.0
--- NOTE | 2022-06-05 08:22 | EXP.UTC ---
Discharge Plan Disposition Patient Disposition: Home, Self-Care Condition: Good Prescriptions Prescriptions: New oseltamivir [Tamiflu] 75 mg capsule 75 mg PO BID 5 Days Qty: 10 0RF No Action phentermine [Adipex-P] 37.5 mg capsule 37.5 mg PO DAILY Rx Instructions: must administer 30 minutes before or 1-2 hours after breakfast Referrals Follow up/Referrals: Jonathan Walsh MD [Primary Care Provider] - See instructions Activity Restrictions/Add. Instructions Additional Instructions/Restrictions: Start Tamiflu today if you are going to take it. Discussed risk and possible benefits. Lots of rest Increase Fluids water, Gatorade, powerade, pedialyte,if infant/toddler/child Alternate Tylenol and / or ibuprofen as discussed for fever, aches, chills Follow up IMMEDIATELY with your family doctor for new or worsening Symptoms OR no noticeable improvement over the next 48-72 hours, 911 for difficulty or breathing You or your child area contagious until no fever, aches, chills for 24 hours with medication for symptoms Help Prevent the spread of influenza: ?Wash your hands often. Use soap and water. Wash your hands after you use the bathroom, change a child's diapers, or sneeze. Wash your hands before you prepare or eat food. Use gel hand cleanser that has 60% alcohol, when soap and water are not available. Do not touch your eyes, nose, or mouth unless you have washed your hands first. Cover your mouth when you sneeze or cough. Cough into a tissue or the bend of your arm. If you use a tissue, throw it away immediately and wash your hands. Clean shared items with a germ-killing power cleaner operator. Clean table surfaces, doorknobs, and light switches. Do not share towels, silverware, and dishes with people who are sick. Wash bed sheets, towels, silverware, and dishes with soap and water. Wear a mask over your mouth and nose if you are sick. The face mask may help protect others from becoming infected with the flu. Wear the mask when in common areas of your home or if you seek care with a healthcare provider. Stay away from others if you are sick. Stay at home until 24 hours after your fever and symptoms are gone. Clinical Impressions Clinical Impression: Influenza A Stand Alone Forms Stand Alone Forms: Work/School Release Instructions Patient Instructions: DI for Influenza -- Adult, Influenza Discharge ED Provider: Lakeisha Box [facility] [place] H[place] General Stated complaint: BA Mode of Arrival: Ambulatory Source of Information: Patient Limitations: No Limitations Time Seen by Provider: 06/05/22 08:22 Description of Symptoms (Recalled from Triage Doc. by RN): PATIENT C/O BODY ACHES, SORE THROAT, COUGH AND HEADACHE HEENT Symptoms (Recalled from RN notes): Yes Resp Symptoms (Recalled from RN notes): No Skin Symptoms (Recalled from RN notes): No MS Symptoms (Recalled from RN notes): No Functional Status (Recalled from RN notes): WNL History of Present Illness Provider Complaint: Patient states that for the last couple of days she has been having body aches, sinus congestion and pressure headache, sore throat and over all not feeling well States that today she is still not feeling well so she came in to get checked out Related Data Home Medications Medication Instructions Recorded Confirmed phentermine 37.5 mg capsule 37.5 mg PO DAILY Weight loss 06/05/22 06/05/22 (Adipex-P) Previous Rx's Medication Instructions Recorded oseltamivir 75 mg capsule (Tamiflu) 75 mg PO BID 5 days #10 caps 06/05/22 Allergies Allergy/AdvReac Type Severity Reaction Status Date / Time No Known Allergies Allergy Verified 05/14/22 14:47 Worker's Comp Is this a Worker's Comp case?: No [facility] Medical History (Updated 06/05/22 @ 09:45 by Lakeisha Box, JACLYN) Fatty liver Irregular periods/menstrual cycles Obesity (BMI 3
[2022-06-05 08:38] LABS: UTC Strep Screen (Rapid) Negative (Negative)
[2022-06-05 08:49] LABS: Coronavirus 19, PCR Not Detected (NotDetected); Influenza B, PCR Not Detected (NotDetected)
[2022-06-05 09:23] LABS: Influenza A, PCR Detected (NotDetected)
[2022-06-05 09:49] VITALS: BP 126/88; PULSE 125; RESP 18; TEMP 36.8; O2SAT 100
== END 2022-06-05 09:53 | disposition home or self-care (01) ==
PROVIDERS: Emergency Provider Nurse Practitioner; PCP Family Medicine
DX: J10.1 Influenza due to other identified influenza virus with other respiratory manifestations (principal)
CPT/HCPCS: 87880; 99212; C9803; G0463; U0003; U0005

== ENCOUNTER → 2022-06-15 09:54 | Outpatient (CLI) | payer OTHER, SELFPAY ==
[2022-06-15 10:55] LABS: Basophils % 0.3 % (0.1-2.0); Eosinophils # 0.1 K/mm3 (0.0-0.4); Eosinophils % 1.6 % (0.1-12.0); Hematocrit 40.3 % (37.0-47.0); Hemoglobin 13.5 g/dL (12.2-16.2); Lymphocytes # 2.2 K/mm3 (0.7-4.5); Lymphocytes % 43.7 % (10-50); Mean Corpuscular HGB Conc 33.5 g/dL (31.8-35.4); Mean Corpuscular Hemoglobin 28.7 pg (27.0-31.2); Mean Corpuscular Volume 85.7 fl (81-99); Mean Platelet Volume 7.1 fl (7.4-10.4); Monocytes # 0.3 K/mm3 (0.1-1.0); Monocytes % 5.2 % (1.7-9.3); Neutrophils # 2.5 K/mm3 (1.8-7.8); Neutrophils % 49.3 % (37.0-80.0); Platelet Count 279 K/mm3 (142-424); Red Cell Distribution Width 12.9 % (11.5-17.5)
[2022-06-15 11:32] LABS: Hemoglobin A1C 4.9 % (4.0-6.0)
[2022-06-15 11:57] LABS: Glucose,Fasting 79 mg/dl (74-100)
[2022-06-15 12:28] LABS: Thyroid Stimulating Hormone 1.49 uIU/mL (0.465-4.68)
[2022-06-16 11:19] LABS: Estradiol 42.1 pg/mL (.); FSH 7.9 mIU/mL (.); LH 9.5 mIU/mL (.); Testosterone,Total 40 ng/dL (13-71)
[2022-06-16 13:34] LABS: Insulin Level Total 7.4 uIU/mL (2.6-24.9)
== END ==
LOC: LAB 09:55 → COVID.OUT 09:55
PROVIDERS: PCP Family Medicine; Visit Provider Obstetrics & Gynecology
DX: E66.9 Obesity, unspecified (principal); R68.89 Other general symptoms and signs; Z68.33 Body mass index [BMI] 33.0-33.9, adult
CPT/HCPCS: 36415; 82670; 82947; 83001; 83002; 83036; 83525; 84403; 84443; 85025

== ENCOUNTER → 2022-09-03 06:00 | Outpatient (CLI) | payer OTHER, SELFPAY | PROVIDERS: Visit Provider Nurse Practitioner Family | DX: L60.8 Other nail disorders (principal) | CPT/HCPCS: 87102; 87206; 87220 ==

== ENCOUNTER → 2022-09-16 12:23 | Outpatient (CLI) | payer OTHER, SELFPAY ==
[2022-09-16 13:26] LABS: HCG,Quantitative 302 mIU/ml (0-5.42)
[2022-09-17 10:13] LABS: Progesterone 15.7 ng/mL (.)
== END ==
PROVIDERS: PCP Family Medicine; Visit Provider Obstetrics & Gynecology
DX: N92.6 Irregular menstruation, unspecified (principal); Z32.00 Encounter for pregnancy test, result unknown
CPT/HCPCS: 36415; 84144; 84702

== ENCOUNTER → 2022-09-18 09:21 | Outpatient (CLI) | payer OTHER, SELFPAY ==
[2022-09-18 11:44] LABS: HCG,Quantitative 687 mIU/ml (0-5.42)
== END ==
PROVIDERS: PCP Family Medicine; Visit Provider Obstetrics & Gynecology
DX: N92.6 Irregular menstruation, unspecified (principal); Z32.00 Encounter for pregnancy test, result unknown
CPT/HCPCS: 36415; 84702

== ENCOUNTER → 2022-09-20 11:34 | Outpatient (CLI) | payer OTHER, SELFPAY ==
[2022-09-20 13:01] LABS: HCG,Quantitative 1655 mIU/ml (0-5.42)
== END ==
PROVIDERS: PCP Family Medicine; Visit Provider Nurse Practitioner Family
DX: N92.6 Irregular menstruation, unspecified (principal); Z32.00 Encounter for pregnancy test, result unknown
CPT/HCPCS: 36415; 84702

== ENCOUNTER → 2022-09-24 19:15 | Outpatient (CLI) | payer OTHER, SELFPAY ==
[2022-09-24 22:07] LABS: HCG,Quantitative 10444 mIU/ml (0-5.42)
[2022-09-26 08:52] LABS: Progesterone 11.6 ng/mL (.)
== END ==
PROVIDERS: PCP Obstetrics & Gynecology; Visit Provider Obstetrics & Gynecology
DX: Z34.90 Encounter for supervision of normal pregnancy, unspecified, unspecified trimester (principal)
CPT/HCPCS: 36415; 84144; 84702

== ENCOUNTER → 2022-10-03 09:24 | Outpatient (CLI) | payer OTHER, SELFPAY ==
[2022-10-04 11:00] LABS: Progesterone 15.3 ng/mL (.)
== END ==
PROVIDERS: PCP Family Medicine; Visit Provider Obstetrics & Gynecology
DX: Z34.90 Encounter for supervision of normal pregnancy, unspecified, unspecified trimester (principal)
CPT/HCPCS: 36415; 84144; 84702

== ENCOUNTER → 2022-10-05 18:59 | Outpatient (CLI) | payer OTHER, SELFPAY | PROVIDERS: PCP Family Medicine; Visit Provider Obstetrics & Gynecology | DX: Z34.90 Encounter for supervision of normal pregnancy, unspecified, unspecified trimester (principal) | CPT/HCPCS: 84702 ==

== ENCOUNTER → 2022-10-14 12:20 | Outpatient (CLI) | payer OTHER, SELFPAY | PROVIDERS: PCP Family Medicine; Visit Provider Obstetrics & Gynecology | DX: Z34.90 Encounter for supervision of normal pregnancy, unspecified, unspecified trimester (principal) | CPT/HCPCS: 36415; 84702 ==

== ENCOUNTER → 2022-10-20 16:56 | Outpatient (CLI) | payer OTHER, SELFPAY | PROVIDERS: Visit Provider Obstetrics & Gynecology | DX: Z34.90 Encounter for supervision of normal pregnancy, unspecified, unspecified trimester (principal) | CPT/HCPCS: 87086 ==

== ENCOUNTER → 2022-11-01 10:22 | Outpatient (CLI) | payer OTHER, SELFPAY ==
[2022-11-01 11:48] LABS: Basophils % 0.2 % (0.1-2.0); Eosinophils # 0.1 K/mm3 (0.0-0.4); Eosinophils % 0.9 % (0.1-12.0); Hematocrit 38.6 % (37.0-47.0); Hemoglobin 12.7 g/dL (12.2-16.2); Lymphocytes # 2.2 K/mm3 (0.7-4.5); Lymphocytes % 23.8 % (10-50); Mean Corpuscular HGB Conc 32.8 g/dL (31.8-35.4); Mean Corpuscular Hemoglobin 28.9 pg (27.0-31.2); Monocytes # 0.4 K/mm3 (0.1-1.0); Monocytes % 4.1 % (1.7-9.3); Neutrophils # 6.4 K/mm3 (1.8-7.8); Neutrophils % 71.1 % (37.0-80.0); Platelet Count 314 K/mm3 (142-424); Red Blood Count 4.39 M/mm3 (4.20-5.40); White Blood Count 9.1 K/mm3 (4.8-10.8)
[2022-11-02 10:18] LABS: Rapid Plasma Reagin Ab Titer Non Reactive (NonRea<1:1); Rubella Antibodies, IgG 1.76 index (Immune >0.99)
[2022-11-10 03:05] LABS: HIV Screen 4th Generation wRfx Non Reactive
[2022-11-10 03:06] LABS: Hepatitis B Surface Antigen Negative; Hepatitis C Antibody Non Reactive
== END ==
PROVIDERS: PCP Family Medicine; Visit Provider Obstetrics & Gynecology
DX: Z34.90 Encounter for supervision of normal pregnancy, unspecified, unspecified trimester (principal)
CPT/HCPCS: 36415; 85025; 86593; 86703; 86762; 86850; 87340; 87380; G0432

== ENCOUNTER → 2022-11-21 12:09 | Outpatient (CLI) | payer OTHER, SELFPAY ==
[2022-11-21 12:58] LABS: Basophils % 0.1 % (0.1-2.0); Eosinophils # 0.1 K/mm3 (0.0-0.4); Eosinophils % 0.9 % (0.1-12.0); Hematocrit 36.2 % (37.0-47.0); Lymphocytes % 21.9 % (10-50); Mean Corpuscular HGB Conc 33.1 g/dL (31.8-35.4); Mean Corpuscular Hemoglobin 28.8 pg (27.0-31.2); Mean Corpuscular Volume 87.2 fl (81-99); Mean Platelet Volume 7.1 fl (7.4-10.4); Monocytes # 0.4 K/mm3 (0.1-1.0); Monocytes % 3.8 % (1.7-9.3); Neutrophils # 6.8 K/mm3 (1.8-7.8); Neutrophils % 73.2 % (37.0-80.0); Platelet Count 294 K/mm3 (142-424); Red Blood Count 4.15 M/mm3 (4.20-5.40); Red Cell Distribution Width 12.9 % (11.5-17.5); White Blood Count 9.3 K/mm3 (4.8-10.8)
[2022-11-21 13:28] LABS: Chloride 96 mmol/L (98-107); Potassium 4.2 mmoL/L (3.5-5.1); Sodium 134 mmol/L (136-145)
[2022-11-21 13:31] LABS: Alanine Aminotransferase 26 U/L (12-78); Albumin Level 3.5 g/dl (3.5-5.0); Albumin/Globulin Ratio 1.3 (1.1-1.8); Alkaline Phosphatase 97 U/L (38-126); Anion Gap 15.2 mEq/L (5-15); Aspartate Amino Transferase 33 U/L (14-36); Bilirubin,Total 0.2 mg/dl (0.2-1.3); Blood Urea Nitrogen 7 mg/dl (7-17); Calcium 8.7 mg/dl (8.4-10.2); Carbon Dioxide 27 mmol/L (22.0-30.0); Estimated Glomerular Filt Rate 148 ml/min (>60); GFR (African American) 179 ML/MIN (>60); Globulin 2.6 g/dL (1.3-3.2); Glucose 59 mg/dl (74-100); Total Protein,Serum 6.1 g/dl (6.3-8.2)
== END ==
PROVIDERS: PCP Family Medicine; Visit Provider Nurse Practitioner Family
DX: K75.81 Nonalcoholic steatohepatitis (NASH) (principal); R94.5 Abnormal results of liver function studies
CPT/HCPCS: 36415; 80053; 85025

== ENCOUNTER → 2023-01-07 13:51 | Outpatient (CLI) | payer OTHER, SELFPAY ==
--- NOTE | 2023-01-07 13:51 | US_ITS ---
PROCEDURE: US OB /MATERNAL DETAIL CLINICAL INDICATION: 20 week anatomy scan COMPARISON: No exams were available for comparison FINDINGS: Single viable intrauterine gestation. Position:breech then switched to cephalic mid exam. Placenta: Anteriorplacenta grade 1. Placenta is low lying and measures 2.2 cm from the internal cervical. There is average amount fluid. The cervix appears satisfactory. It measures 4.3 cm. Complete survey performed and was unremarkable on the submitted images as in PACS. No discrete anomalies identified on survey imaging by technologist. Active fetus. Three-vessel cord with satisfactory umbilical cord insertion. 4- chamber heart noted. LVOT, RVOT, aortic arch appear normal Survey of brain & ventricles Unremarkable. Cerebellum, thalamus, choroid plexus, cisterna magna appear normal Face and neck survey unremarkable. Lips, nose, profile, nasion normal. Diaphragm and chest views unremarkable. Abdomen: Both kidneys noted and unremarkable. Stomach noted and satisfactory. Bladder appears normal. Spine: Survey of the spine satisfactory with no anomalies identified nor imaged. Upper, thoracic and lower spine appear normal Both arms and legs noted. Amniotic Fluid: Adequate. Measurements: Average ultrasound age 20weeks 5days. Gestational Age 20weeks 5days Estimated due date by ultrasound age 1105/22/2023. Estimated weight 366g BPD = 20weeks 6days OFD = 21weeks 2days HC = 20weeks 5days AC = 21weeks FL = 20weeks 2days Growth Percentile= 51Percent Heart Rate = 150bpm Cerebellum = 20weeks 4days Humerus = 21weeks 2days HC/AC is 1.16 CI is 0.76 FL/BPD is 0.67 FL/AC is 0.21 IMPRESSION: 1. Viable fetus in variable positions initially breech then switched to cephalic. 2. Anatomy scan appears normal. There has been good symmetric interval growth. 3. Anterior placenta low lying 2.2 cm from the internal cervical os. Suggest repeating the ultrasound at 28 weeks to check the resolution of the low-lying placenta. Dictated by: Joey Mendoza MD 01/07/2023 19:03 Joey Mendoza MD in OV 01/07/2023 19:03
== END ==
PROVIDERS: PCP Family Medicine; Visit Provider Obstetrics & Gynecology
DX: Z34.92 Encounter for supervision of normal pregnancy, unspecified, second trimester (principal); Z3A.20 20 weeks gestation of pregnancy
CPT/HCPCS: 76811

== ENCOUNTER → 2023-02-16 09:38 | Outpatient (CLI) | payer OTHER, SELFPAY ==
[2023-02-16 10:01] LABS: Basophils % 0.2 % (0.1-2.0); Eosinophils # 0.1 K/mm3 (0.0-0.4); Eosinophils % 0.8 % (0.1-12.0); Hematocrit 37.9 % (37.0-47.0); Hemoglobin 12.3 g/dL (12.2-16.2); Lymphocytes # 2.2 K/mm3 (0.7-4.5); Lymphocytes % 20.7 % (10-50); Mean Corpuscular HGB Conc 32.3 g/dL (31.8-35.4); Mean Corpuscular Hemoglobin 27.5 pg (27.0-31.2); Mean Corpuscular Volume 85.2 fl (81-99); Mean Platelet Volume 7.3 fl (7.4-10.4); Monocytes # 0.3 K/mm3 (0.1-1.0); Monocytes % 2.9 % (1.7-9.3); Neutrophils % 75.4 % (37.0-80.0); Platelet Count 268 K/mm3 (142-424); Red Blood Count 4.45 M/mm3 (4.20-5.40); Red Cell Distribution Width 14.3 % (11.5-17.5); White Blood Count 10.6 K/mm3 (4.8-10.8)
[2023-02-16 10:11] LABS: Glucose,Fasting 85 mg/dl (74-100)
[2023-02-16 11:52] LABS: Glucose 1 Hour 150 mg/dL (74-100)
== END ==
PROVIDERS: PCP Family Medicine; Visit Provider Obstetrics & Gynecology
DX: Z34.92 Encounter for supervision of normal pregnancy, unspecified, second trimester (principal); Z3A.25 25 weeks gestation of pregnancy
CPT/HCPCS: 36415; 82951; 85025

== ENCOUNTER → 2023-02-23 07:42 | Outpatient (CLI) | payer OTHER, SELFPAY ==
[2023-02-23 08:07] LABS: Glucose,Fasting 86 mg/dl (74-100)
[2023-02-23 09:59] LABS: Glucose 1 Hour 125 mg/dL (74-100)
[2023-02-23 11:02] LABS: Glucose 2 Hour 100 mg/dL (74-100)
[2023-02-23 12:35] LABS: Glucose 3 Hour 76 mg/dL (74-100)
== END ==
PROVIDERS: PCP Family Medicine; Visit Provider Obstetrics & Gynecology
DX: Z34.92 Encounter for supervision of normal pregnancy, unspecified, second trimester (principal); Z3A.27 27 weeks gestation of pregnancy
CPT/HCPCS: 36415; 82951

== ENCOUNTER → 2023-03-04 12:53 | Outpatient (CLI) | payer OTHER, SELFPAY ==
--- NOTE | 2023-03-04 12:53 | US_ITS ---
PROCEDURE: US OB FOLLOW UP CLINICAL INDICATION: evaluate low lying placenta COMPARISON: US US OB /MATERNAL DETAIL from 01/07/2023 FINDINGS: Transabdominal sonographic images of the uterus were obtained. The following parameters are obtained: From her established due date she is 28weeks 4days Viable fetus in the cephalic presentation with an anterior placenta grade 1. The previously described placenta previa has completely resolved. Cervical length is 4.0 cm. heart rate: 147bpm bpm. BPD: 29weeks 5days HC: 30weeks 3days AC: 29weeks 0 days FL: 29weeks 0 days Growth 57 percentile. HC/AC: 1.13 FL/BPD: 0.74 FL/AC: 0.22 Amniotic fluid index: 13.99cm No obvious anomalies evident. Stomach, bladder, diaphragm, kidneys, three-vessel cord, four chamber heart appear normal. IMPRESSION: 1. Viable fetus in the cephalic presentation with an anterior placenta grade 1. The fluid is within normal limits. 2. The previously described low-lying/placenta previa has completely resolved. 3. There has been good interval growth with the fetus currently 57 percentile. 4. Limited anatomical scan appears normal. Dictated by: Joey Mendoza MD 03/04/2023 15:59 Joey Mendoza MD in OV 03/04/2023 15:59
== END ==
PROVIDERS: PCP Family Medicine; Visit Provider Obstetrics & Gynecology
DX: O44.53 Low lying placenta with hemorrhage, third trimester (principal); Z3A.28 28 weeks gestation of pregnancy
CPT/HCPCS: 76816

== ENCOUNTER → 2023-04-01 09:38 | Outpatient (CLI) | payer OTHER, SELFPAY ==
--- NOTE | 2023-04-01 09:38 | US_ITS ---
PROCEDURE: US OB BIOPHYSICAL PROFILE CLINICAL INDICATION: lga/ and CHIQUITA COMPARISON: Ultrasound March 04, 2023 FINDINGS: Transabdominal sonographic images of the uterus were obtained. From her established due date she is 32weeks 4days. The following parameters are obtained: Viable fetus in the cephalic presentation with an anterior placenta grade 1. Average ultrasound age is 34weeks 1day. Estimated due date by ultrasound is 05/12/2023. Estimated weight is 5lb 3oz, 2357 grams. 86 percentile. heart rate: 165bpm bpm. BPD: 34 weeks 2 days HC: 34 weeks 1 day AC: 34 weeks 6 days FL: 33 weeks 0 days HC/AC: 0.99 FL/BPD: 0.75 FL/AC: 0.21 Amniotic fluid index: 13.75cm Qualitative AFV: 2 breathing movements: 2 Gross body movements: 2 Tone: 2 Biophysical profile score: 8 No obvious anomalies evident.Kidneys, stomach, bladder, nasion, profile, four-chamber heart, three-vessel cord appear normal. IMPRESSION: 1. Fetus in the cephalic presentation with an anterior placenta grade 1. 2. Fluid is within normal limits with an amniotic fluid index of 13.75 cm. 3. There is good breathing movement seen and the biophysical profile is 8/8. 4. There has been accelerated growth with the abdominal circumference 2 weeks ahead. Fetus is 86 percentile. Dictated by: oJey Mendoza MD 04/02/2023 08:25 Joey Mendoza MD in OV 04/02/2023 08:25
== END ==
PROVIDERS: PCP Family Medicine; Visit Provider Obstetrics & Gynecology
DX: O36.63X0 Maternal care for excessive fetal growth, third trimester, not applicable or unspecified (principal); O28.8 Other abnormal findings on antenatal screening of mother; Z3A.32 32 weeks gestation of pregnancy
CPT/HCPCS: 76816; 76819

== ENCOUNTER → 2023-04-27 12:58 | Outpatient (CLI) | payer OTHER, SELFPAY | PROVIDERS: Visit Provider Obstetrics & Gynecology | DX: Z34.93 Encounter for supervision of normal pregnancy, unspecified, third trimester (principal); Z3A.36 36 weeks gestation of pregnancy | CPT/HCPCS: 86403 ==

== ENCOUNTER → 2023-05-18 11:04 | Outpatient (CLI) | payer OTHER, SELFPAY ==
--- NOTE | 2023-05-18 11:07 | US_ITS ---
PROCEDURE: US OB FOLLOW UP CLINICAL INDICATION: Size of uterine fundus inconsistent with dates COMPARISON: US US OB BIOPHYSICAL PROFILE from 04/01/2023 FINDINGS: Transabdominal sonographic images of the pelvis were obtained. The following parameters are obtained: From her established due date she is 39weeks 2days Viable fetus in the cephalic presentation with an anterior placenta grade 2. heart rate: 150bpm bpm. weight 9 lb 8 oz, 4296 grams BPD: 39weeks 3days HC: 40weeks 6days AC: 41 weeks 6 days FL: 39weeks 4days HC/AC: 0.92 FL/BPD: 0.8 FL/AC: 0.2 Growth percentile 96 Amniotic fluid index: 10.58cm No obvious anomalies evident. profile seen, nasion, four chamber heart appear normal. IMPRESSION: 1. Fetus in the cephalic presentation with an anterior placenta Grade 2. 2. The fluid is within normal limits with an amniotic fluid index of 10.58 cm. 3. The fetus is large for gestational age currently 2.5 standard deviations above the mean for size. The AC is almost 3 weeks ahead. 4. The baby weighs 4296 grams +/-620 7 grams. 96 percentile. Dictated by: Joey Mendoza MD 05/18/2023 18:11 Joey Mendoza MD in [place] 05/18/2023 18:11
== END ==
PROVIDERS: PCP Family Medicine; Visit Provider Obstetrics & Gynecology
DX: O26.843 Uterine size-date discrepancy, third trimester (principal); Z3A.39 39 weeks gestation of pregnancy
CPT/HCPCS: 76816

== ENCOUNTER 2023-05-21 04:58 | Inpatient (IN) | payer OTHER, SELFPAY ==
[2023-05-21] VITALS (9 sets, daily range): BP systolic 102–137; BP diastolic 55–88; PULSE 78–98; RESP 16–20; TEMP 36.6–36.9; O2SAT 99–100; BMI 46.5; BMI 46.4
--- OUTSIDE RECORDS SUMMARY | 2023-05-21 05:02 | XMS_ITS | Clinical Summary ---
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
[2023-05-21 05:49] LABS: Microscopic, Urine URINE MICROSCOPIC (MICROSCOPIC)
[2023-05-21 05:50] LABS: Basophils % 0.1 % (0.1-2.0); Eosinophils # 0.1 K/mm3 (0.0-0.4); Eosinophils % 0.9 % (0.1-12.0); Hematocrit 35.1 % (37.0-47.0); Hemoglobin 12.3 g/dL (12.2-16.2); Lymphocytes % 24.9 % (10-50); Mean Corpuscular HGB Conc 34.9 g/dL (31.8-35.4); Mean Corpuscular Hemoglobin 29.9 pg (27.0-31.2); Mean Corpuscular Volume 85.6 fl (81-99); Mean Platelet Volume 7.9 fl (7.4-10.4); Monocytes # 0.5 K/mm3 (0.1-1.0); Monocytes % 4.2 % (1.7-9.3); Neutrophils # 8.3 K/mm3 (1.8-7.8); Neutrophils % 69.9 % (37.0-80.0); Platelet Count 212 K/mm3 (142-424); Red Cell Distribution Width 15.3 % (11.5-17.5); White Blood Count 11.9 K/mm3 (4.8-10.8)
[2023-05-21 05:51] LABS: Appearance,Urine CLEAR (Clear); Bilirubin,Urine Negative (Negative); Blood, Urine Negative (Negative); Color,Urine YELLOW (Yellow); Glucose,Urine (UA) Negative (Negative); Ketones,Urine Negative (Negative); Leukocyte Esterase,Urine Negative (Negative); Nitrate,Urine Negative (Negative); Protein,Urine Negative (Negative); Specific Gravity, Urine 1.025 (1.005-1.030); Urobilinogen,Urine 0.2 EU/dl (0.2)
[2023-05-21 05:54] LABS: Alanine Aminotransferase 21 U/L (12-78); Albumin Level 3.3 g/dl (3.5-5.0); Albumin/Globulin Ratio 1.1 (1.1-1.8); Alkaline Phosphatase 210 U/L (38-126); Anion Gap 10.9 mEq/L (5-15); Aspartate Amino Transferase 32 U/L (14-36); Bilirubin,Total 0.2 mg/dl (0.2-1.3); Blood Urea Nitrogen 10 mg/dl (7-17); Calcium 8.7 mg/dl (8.4-10.2); Carbon Dioxide 22 mmol/L (22.0-30.0); Chloride 106 mmol/L (98-107); Creatinine Clearance Estimated 105 mL/min (50-200); Estimated Glomerular Filt Rate 119 ml/min (>60); GFR (African American) 144 ML/MIN (>60); Globulin 2.9 g/dL (1.3-3.2); Glucose 85 mg/dl (74-100); Potassium 3.9 mmoL/L (3.5-5.1); Sodium 135 mmol/L (136-145); Total Protein,Serum 6.2 g/dl (6.3-8.2)
[2023-05-21 06:05] LABS: Amphetamine/Metha Screen,Urine Negative ng/ml (<1000); Barbiturates Screen,Urine Negative ng/ml (<200)
[2023-05-21 06:06] LABS: Methadone Screen,Urine Negative ng/ml (<300)
[2023-05-21 06:07] LABS: Cannabinoid Screen,Urine Negative ng/ml (<50); Cocaine Screen,Urine Negative ng/ml (<300)
[2023-05-21 06:08] LABS: Opiate Screen,Urine Negative ng/ml (<300); Phencyclidine Screen,Urine Negative ng/ml (<25)
[2023-05-21 06:12] LABS: Benzodiazepines Screen,Urine Negative ng/ml (<200)
[2023-05-21 06:13] LABS: Squamous Epithelial Cell,Urine Occasional #/hpf (0-5)
--- NOTE | 2023-05-21 07:08 | EXP.OB.APHP ---
OB - H&P: HPI Antepartum History of Present Illness Chief complaint: Elective primary History of present illness: Mrs Kandace Gallegos is a 28 yo at 39w5d who presents to [facility] L&D for scheduled elective primary secondary to LGA baby. Ultrasound 05/18/23 demonstrated EFW 4296 grams, 96 %ile. History of Present Criteria for establishing EDC:: LMP confirmed by 1st trimester US care: good care Ultrasounds: normal mid trimester US Obstetrical complications: none Medical complications: none Labs Blood type: O (+) positive Rubella: immune RPR/VDRL: nonreactive GBS status: negative HBsAG: negative PFSH [facility] Disclaimer: The information contained in this section may have been updated after the patient was seen, as this information can be updated by other users. Medical History (Updated 05/21/23 @ 07:17 by Marcella Short DO) 39 weeks gestation of Fatty liver Irregular periods/menstrual cycles LGA (large for gestational age) fetus affecting mother, antepartum Maternal obesity affecting , antepartum Obesity (BMI 30.0-34.9) Tuberculosis Surgical History History of cholecystectomy History of tonsillectomy Family History Other Asthma Cancer Coronary artery disease Diabetes Heart attack Hyperlipidemia Hypertension Kidney disease Thyroid disorder Tuberculosis Social History Smoking Status: Never smoker alcohol intake: never substance use type: denies use current occupational status: employed Travel in the last 8 weeks: None household members: family and other housing: house current occupation: [employer] current occupational exposures/hazards: No caffeine: No Review of Systems Review of Systems Review of systems:: pertinent systems reviewed and negative unless documented below Meds Home Medications and Allergies Home Medications Medication Instructions Recorded Confirmed Type prenat.vits,nelly,cbt-jsex-kruzw 1 tab PO DAILY 08/11/22 05/18/23 History magnesium oxide 800 mg PO DAILY 01/19/23 05/18/23 History famotidine 20 mg tablet 20 mg PO BID #60 tabs 03/09/23 05/18/23 Rx ferrous sulfate 325 mg (65 mg mg PO 04/07/23 05/18/23 History iron) tablet,delayed release New Prescriptions to Start Prescriptions: Allergies Allergy/AdvReac Type Severity Reaction Status Date / Time No Known Allergies Allergy Verified 05/18/23 10:29 OB - H&P: Exam Physical Exam Vital signs: Temp Pulse Resp BP Pulse Ox O2 Del Method 98.4 F 98 H 18 137/88 99 Room Air 05/21/23 05:54 05/21/23 05:54 05/21/23 05:54 05/21/23 05:54 05/21/23 05:54 05/21/23 05:54 Constitutional no acute distress Routine HEENT Exam Head: Present normocephalic and atraumatic Eye: Absent conjunctivae pink ENT: Present mucous membranes moist and dentition normal Routine Neck Exam Present full ROM Routine Respiratory Exam Present CTA bilaterally and normal respiratory effort Routine Cardiovascular Exam Present RRR Routine Abdominal Exam Present soft (Gravid); Absent tenderness or distended Routine Rectal Exam Patient deferred: visual exam Routine Exam External: Present normal urethra appearance; Absent erythema, tenderness, lesions or vulvar erythema Routine Extremities Exam Present edema (+3 bilateral lower extremity edema) and full ROM; Absent calf tenderness Routine Neurological Exam Present alert, oriented X3 and moving all extremities Routine Psychiatric Exam Present normal affect and cooperative OB - Results Labs Labs: Short CBC 05/21/23 Range/Units 05:30 WBC 11.9 H (4.8-10.8) K/mm3 Hgb 12.3 (12.2-16.2) g/dL Hct 35.1 L (37.0-47.0) % Plt Count 212 (142-424) K/mm3 [facility] 05/21/23 05:30 Sodium 135 L Potassium 3.9 Chlor
--- NOTE | 2023-05-21 08:39 | EXP.OP.NOTE ---
Date of procedure: 05/21/23 Pre-op Diagnosis:: 1. IUP at 39w5d 2. Maternal obesity 3. LGA baby Post-op Diagnosis:: 1. IUP at 39w5d 2. Maternal obesity 3. LGA baby Procedure performed:: Elective primary low transverse section Surgeon:: Marcella Short DO [employer] Supervisor(s):: Joey Mendoza MD TONAL REGULATOR:: Emmanuel Fitch Anesthesia: spinal Estimated blood loss (mL): 1,000 Clinical Note:: Mrs Kandace Gallegos is a 28 yo at 39w5d who presents to [facility] L&D for scheduled elective primary secondary to LGA baby. Ultrasound 05/18/23 demonstrated EFW 4296 grams, 96 %ile. Operative findings:: 1. Live male baby, Marques Walsh, weighing 9 lb 3 oz, APGARs 2. Nuchal cord x 1, easily reduced 3. Grossly normal appearing uterus, bilateral fallopian tubes and ovaries Operative note:: The risks, benefits and alternatives of the procedure were reviewed with the patient. Informed consent was obtained. Patient was taken to the operating room where spinal anesthesia was placed. The patient received 2 grams of Ancef preoperatively. Patient was placed in dorsal supine position with a leftward tilt. SCDs in place. Townsend catheter had been placed and was draining clear urine prior to the start of the procedure. heart tones were obtained. Patient was then prepped and draped in normal sterile fashion. Allis clamp test was performed to ensure adequate anesthesia. A Pfannenstiel skin incision was made 2 cm above pubic symphysis. This was carried through to underlying layer of fascia. Fascia was incised in midline, extended laterally with Jones scissors. Superior aspect of fascial incision was grasped with two Alphonso clamps, elevated up, and rectus muscle dissected off bluntly and sharply with Jones scissors. Inferior aspect of fascial incision was grasped with two Alphonso clamps, elevated up, and rectus muscle dissected off bluntly and sharply with Jones scissors.The retcus muscle was then in the midline and the peritoneum was entered bluntly with a digit. Peritoneal incision was then extended superiorly and inferiorly with good visualization of the bladder. Jason retractor was inserted. The lower uterine segment was incised in a transverse fashion. Clear amniotic fluid was noted. Head was delivered without difficulty. Nuchal cord x 1 was easily reduced. Remainder of body was delivered without difficulty. Mouth and nares were bulb suctioned. Spontaneous cry was noted. Delayed cord clamping was performed for 60 seconds. The umbilical cord was clamped and cut. The was handed to awaiting pediatric staff in stable condition. Dr. Walsh was present. Apgars were 9(1 min), 9(5 min). Cord blood was obtained. Gentle traction on the umbilical cord and uterine fundal massage delivered the placenta. Placenta was intact. Uterus was cleared of all clots and debris with a moist laparotomy sponge. Corners of the uterine incision were grasped with Allis clamps. The uterine incision was reapproximated with # 1 Vicryl suture in a running, locked stitch. Second layer of the same stitch was used to imbricate the incision. Vesicouterine peritoneum was reapproximated in a running locked stitch with 0-Vicryl suture. Hemostasis was noted. Posterior cul-de-sac was cleaned with moist laparotomy sponge. Gutters cleared of all clots and debris with a moist laparotomy sponge. Reinspection of the lower uterine segment demonstrated small amount of oozing. Gel Foam placed over uterine incision. Hemostasis was noted. At this point all instruments and sponges were removed from the pelvis.? The peritoneum was grasped with Ghazala clamps x 3. The peritoneum was reapproximated with 0 Vicryl suture in a running stitch. The corners of the fascia were grasped with Alphonso clamps, and the fascia was reapproximated with two # 1 Vicryl suture overlapped to the right of midline. The subcutaneous tissue was reapproximated with 3-0 Vicryl. Subcutaneous tissue was irrigated with clear return of fluids. The ski
--- NOTE | 2023-05-21 08:52 | P.CONPHA_ITS ---
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 -CAITLYN PINEDAD
--- NOTE | 2023-05-21 08:52 | HMH.PHAINT1 ---
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 -CAITLYN PINEDAD
--- NOTE | 2023-05-21 08:53 | EXP.ANES.CKL ---
[facility] Disclaimer: The information contained in this section may have been updated after the patient was seen, as this information can be updated by other users. Medical History (Updated 05/21/23 @ 07:17 by Marcella Short DO) 39 weeks gestation of Fatty liver Irregular periods/menstrual cycles LGA (large for gestational age) fetus affecting mother, antepartum Maternal obesity affecting , antepartum Obesity (BMI 30.0-34.9) Tuberculosis Surgical History History of cholecystectomy History of tonsillectomy Family History Other Asthma Cancer Coronary artery disease Diabetes Heart attack Hyperlipidemia Hypertension Kidney disease Thyroid disorder Tuberculosis Social History Smoking Status: Never smoker alcohol intake: never substance use type: denies use current occupational status: employed Travel in the last 8 weeks: None household members: family and other housing: house current occupation: [employer] current occupational exposures/hazards: No caffeine: No [facility] Anesthesia Checklist Patient Identification Patient Identification: Arm Band Structural Data Admitted From: Inpatient Planned Operative Procedure/s: Primary C/S Consent for Planned Operative Procedure(s) Verified: Yes Verified Documents: Surgical Consent and History and Physical NPO Status Verified Time NPO: 00:00 Additional verifications Anesthesia Reactions: No Hx Blood Transfusions: No Blood Transfusion Reaction: No Airway Assessment Mallampati Score:: Class II C-Spine Mobility Assessed: Yes TMJ Mobility Assessed: Yes Dentition: Good Dentition Neurological Assessment Level of Consciousness: Awake and Alert Anesthesia Plan Anesthesia Risk discussed: Yes Anesthesia Plan: Verified ASA Class: II Anesthesia Type: Spinal (with Bilateral TAP Block)
--- NOTE | 2023-05-21 08:54 | EXP.ANES.I ---
[facility] Anesthesia Record Part I Anesthesia Record I Intake, IV Amount: 2,000 Hydration: Adequate Estimated blood loss (mL): 1,000 Urine output (mL): 400 Blood Products used (#): none Blood Pressure: 121/55 SaO2: 100 Pulse Rate: 86 Airway Patency: Patent Respiratory Rate: 16 Temperature: 98 F Patient is:: Drowsy and Stable Stable to PACU at:: 08:55
--- NOTE | 2023-05-21 09:24 | SUR.OPER ---
Male born alive at 0750, QBL 1035mL surgeon notified and PPH protocol initiated, TAP blocked performed [id number] in OR2
--- NOTE | 2023-05-21 09:27 | SUR.PHASEI ---
0845: Blood loss protocols initiated, QBL at 1035.5. Patient has IV to bilateral hands. 2 units PRBCs placed on hold per MD protocol. Methergine administered prior to PACU. Vital signs and fundal rubs initiated every 5 minutes. 0855: made aware of QBL of 1035.3. Informed MD all protocols had been intiated. Fundus firm and no free flow of blood. No new orders at this time per Dr. Short.
[2023-05-21 10:52] LABS: Microscopic,Cath URINE MICROSCOPIC (MICROSCOPIC)
--- NOTE | 2023-05-21 11:27 | EXP.ANES.II ---
[facility] Anesthesia Record Part II Anesthesia Record Part II Discharge Time: 09:15 Destination: Obstetric PACU nurse assessment reviewed?: Yes Patient Condition:: Good Anesthesia Complications:: None Swallowing reflex intact?: Yes Airway Patency: Patent Cyanosis?: No Blood Pressure: 124/71 SaO2: 100 Respiratory Rate: 16 Pulse Rate: 83 Temperature: 98 F Mental Status: Alert & Oriented Pain level:: 0 Nausea and/or vomitting:: None Intake, IV Amount: 0 Hydration: Adequate
[2023-05-21 11:31] LABS: Appearance,Urine/Cath CLEAR (Clear); Bilirubin,Cath Negative (Negative); Blood, Urine/Cath TRACE-I (Negative); Color,Urine/Cath YELLOW (Yellow); Glucose,Urine/Cath (UA) Negative (Negative); Ketones,Urine/Cath Negative (Negative); Leukocyte Esterase,Cath Negative (Negative); Nitrate,Cath Negative (Negative); PH,Urine/Cath 6.5 (5.0-8.5); Protein,Urine/Cath Negative (Negative); Specific Gravity, Urine/Cath <= 1.005 (1.005-1.030); Urobilinogen,Cath 0.2 EU/dl (0.2)
[2023-05-21 12:10] LABS: Bacteria,Urine/Cath TRACE /lpf; Squamous Epithelial Ur./Cath Occasional #/hpf (0-5); WBC,Urine/Cath Occasional #/hpf (0-3)
[2023-05-22 06:45] LABS: Basophils % 0.2 % (0.1-2.0); Eosinophils # 0.1 K/mm3 (0.0-0.4); Eosinophils % 0.5 % (0.1-12.0); Hematocrit 24.9 % (37.0-47.0); Hemoglobin 8.7 g/dL (12.2-16.2); Lymphocytes # 2.2 K/mm3 (0.7-4.5); Lymphocytes % 16.5 % (10-50); Mean Corpuscular Hemoglobin 30.2 pg (27.0-31.2); Mean Corpuscular Volume 86.5 fl (81-99); Monocytes # 0.6 K/mm3 (0.1-1.0); Monocytes % 4.2 % (1.7-9.3); Neutrophils # 10.4 K/mm3 (1.8-7.8); Neutrophils % 78.6 % (37.0-80.0); Platelet Count 197 K/mm3 (142-424); Red Blood Count 2.88 M/mm3 (4.20-5.40); Red Cell Distribution Width 15.5 % (11.5-17.5); White Blood Count 13.2 K/mm3 (4.8-10.8)
--- NOTE | 2023-05-22 08:22 | EXP.ACUTE.PN ---
Subjective *Date: 05/22/23 *Time: 14:44 Interval history: POD # 1 s/p PLTCS Feeling well. Pain controlled. Appropriate lochia. Breast and formula feeding. Voiding without difficulty and passing flatus. Tolerating regular diet. Denies fever/chills, chest pain and shortness of breath. No headaches, vision changes, dizziness/lightheadedness. Admits to bilateral lower extremity swelling. Ambulating well ad mavis. Medical Exam Vital signs and Labs for Last 24 Hours: Vital Signs Temp Pulse Pulse Resp BP BP Pulse Ox 05/21/23 09:15 98.0 F 83 18 124/71 100 05/21/23 09:10 98.0 F 85 18 113/73 100 05/21/23 09:05 98.0 F 88 20 120/82 100 05/21/23 09:00 98.0 F 84 20 121/55 L 100 05/21/23 08:55 98.0 F 85 19 102/58 L 100 05/21/23 08:50 98.0 F 83 20 102/58 L 99 05/21/23 08:45 98.0 F 78 18 121/55 L 100 05/21/23 11:28 16 05/21/23 08:55 98 F 86 16 121/55 L O2 Del Method 05/21/23 09:15 Room Air 05/21/23 09:10 Room Air 05/21/23 09:05 Room Air 05/21/23 09:00 Room Air 05/21/23 08:55 Room Air 05/21/23 08:50 Room Air 05/21/23 08:45 Room Air 05/21/23 11:28 05/21/23 08:55 Intake and Output 05/21/23 05/22/23 05/22/23 23:59 07:59 15:59 Output Total 700 / 700 Balance -700 / 1300 Output: Output, Urine Amount (Catheter) 700 / 700 Townsend 700 / 700 Laboratory Results - last 24 hr 05/21/23 05:30: Blood Type O Positive, Antibody Screen Negative, Crossmatch (AHG) See Detail 05/21/23 07:30: Urine Color Yellow, Urine Appearance Clear, Urine pH 6.5, Ur Specific [place] <= 1.005, Urine Protein Negative, Urine Glucose (UA) Negative, Urine Ketones Negative, Urine Blood Trace-i, Urine Nitrate Negative, Urine Bilirubin Negative, Urine Urobilinogen 0.2, Ur Leukocyte Esterase Negative, Urine RBC None, Urine WBC Occasional, Ur Squamous Epith Cells Occasional, Urine Bacteria Trace 05/22/23 05:50: WBC 13.2 H, RBC 2.88 L D, Hgb 8.7 L, Hct 24.9 L, MCV 86.5, MCH 30.2, MCHC 35.0, RDW 15.5, Plt Count 197, MPV 8.0, Neut % (Auto) 78.6, Lymph % (Auto) 16.5, Tate % (Auto) 4.2, Eos % (Auto) 0.5, Baso % (Auto) 0.2, Neut # (Auto) 10.4 H, Lymph # (Auto) 2.2, Tate # (Auto) 0.6, Eos # (Auto) 0.1, Baso # (Auto) 0.0 I & O for Labs for Last 24 Hours: Intake & Output 05/19/23 05/20/23 05/21/23 05/22/23 23:59 23:59 23:59 23:59 Intake Total 1999 / 1999 Output Total 700 / 700 Balance 1300 / 1300 Weight 246 lb 0.01 oz Head: Present atraumatic and normocephalic ENT: Present normal exam Neck: Present full ROM Respiratory: Present CTA bilaterally and normal respiratory effort Cardiac: Present Reg Rate and Rhythm GI: Present soft; Absent distention or tenderness Comments:: Uterine fundus firm and below umbilicus; pfannenstiel incision clean/dry/intact with steri strips in place Rectal (female): Present deferred (female): Present deferred Extremities: Present full ROM and edema (+3 bilateral lower extremity edema ); Absent calf tenderness Neuro: Present alert, awake, oriented x 3 and moves all extremities Assessment and Plan *Assessment and plan (1) S/P : Status: Acute Category: Surgical Code(s): Z98.891 - History of uterine scar from previous surgery (2) 39 weeks gestation of : Status: Acute Category: Medical Code(s): Z3A.39 - 39 weeks gestation of (3) LGA (large for gestational age) fetus affecting mother, antepartum: Status: Acute Category: Medical Code(s): O36.60X0 - Maternal care for excessive growth, unspecified trimester, not applicable or unspecified (4) Maternal obesity affecting , antepartum: Status: Acute Qualifiers: Obesity type affecting : unspecified obesity Qualified Code(s): O99.210 - Obesity complicating , unspecified trimester Category: Medical Code(s): O99.210 - Obesity complicating , unsp
[2023-05-22 20:08] VITALS: BP 120/65; PULSE 106; RESP 18; TEMP 36.8; O2SAT 100
[2023-05-23 00:23] VITALS: BP 129/77; PULSE 99; RESP 18; TEMP 37; O2SAT 99
[2023-05-23 03:40] VITALS: BP 123/72; PULSE 94; RESP 18; TEMP 36.7; O2SAT 96
[2023-05-23 08:00] VITALS: BP 126/70; PULSE 109; RESP 18; TEMP 36.9; O2SAT 100
--- NOTE | 2023-05-23 13:03 | EXP.DC.SUM ---
General Admission date:: 05/21/23 Discharge date: 05/23/23 HPI HPI HPI: POD # 2 s/p PLTCS Feeling well. Pain controlled. She is breast and formula feeding. Light lochia. Voiding without difficulty and passing flatus. Tolerating regular diet. Denies fever/chills, chest pain and shortness of breath. Admits to headache relieved by medication and rest. Denies dizziness/lightheadedness. Admits to lower extremity swelling. No calf pain. Ambulating well ad mavis. Hospital Course Hospital Course Hospital Course: Mrs Kandace Gallegos is a 28 yo at 39w5d who presents to [facility] L&D for scheduled elective primary secondary to LGA baby. Ultrasound 05/18/23 demonstrated EFW 4296 grams, 96 %ile. She underwent a primary on 05/21/23. She delivered a live male infant, Marques, weighing 9 lb 3 oz. APGARs 9, 9. EBL 1000 mL. She did well postoperatively. Pain controlled. She is breast and formula feeding. Light lochia. Voiding without difficulty and passing flatus. Tolerating regular diet. Denied fever/chills, chest pain and shortness of breath. Admits to headache relieved by medication and rest. Denies dizziness/lightheadedness. Admits to lower extremity swelling. No calf pain. Ambulating well ad mavis. Vital signs stable, afebrile. Heart regular rate and rhythm. Lungs clear to auscultation. Abdomen soft, nontender. She was started on ferrous sulfate 325 mg PO for acute blood loss anemia. Discharged home on POD # 2 with instructions to follow-up in the office in 2 weeks or sooner if needed. Exam Data for Last 24 hours Vital signs and Labs for Last 24 Hours: Temp Pulse Resp BP Pulse Ox O2 Del Method 98.5 F 109 H 18 126/70 100 Room Air 05/23/23 08:00 05/23/23 08:00 05/23/23 08:00 05/23/23 08:00 05/23/23 08:00 05/23/23 08:00 I & O for Last 24 hours: Intake & Output 05/20/23 05/21/23 05/22/23 05/23/23 23:59 23:59 23:59 23:59 Intake Total 1999 Output Total 700 / 700 Balance 1300 / 1300 Weight 246 lb 0.01 oz Constitutional Constitutional: no acute distress and cooperative *Routine HEENT Exam Head: Present normocephalic and atraumatic Eye: Absent conjunctivae pink ENT: Present mucous membranes moist and dentition normal *Routine Neck Exam Neck: Present full ROM *Routine Respiratory Exam Respiratory: Present CTA bilaterally and normal respiratory effort *Routine Cardiovascular Exam Cardiovascular: Present RRR *Routine Abdominal Exam Abdominal: Present soft and normoactive bowel sounds; Absent tenderness or distended Comments: Uterine fundus firm and below umbilicus; Pfannenstiel incision clean/dry/intact with steri strips in place *Routine Rectal Exam Patient deferred: visual exam *Routine Exam Patient deferred: external exam *Routine Extremities Exam Extremities: Present edema (+3 bilateral lower extremity edema) and full ROM; Absent calf tenderness *Routine Neurological Exam Neurological: Present alert, oriented X3 and moving all extremities Routine Psychiatric Exam Psychiatric: Present normal affect and cooperative DS: Diagnosis Discharge Diagnosis (1) S/P : Status: Acute Code(s): Z98.891 - History of uterine scar from previous surgery (2) 39 weeks gestation of : Status: Acute Code(s): Z3A.39 - 39 weeks gestation of (3) LGA (large for gestational age) fetus affecting mother, antepartum: Status: Acute Code(s): O36.60X0 - Maternal care for excessive growth, unspecified trimester, not applicable or unspecified (4) Maternal obesity affecting , antepartum: Status: Acute Code(s): O99.210 - Obesity complicating , unspecified trimester Qualifiers: Obesity type affecting : unspecified obesity Qualified Code(s): O99.210 - Obesity complicating , unspecified trimester (5) Acute blood loss anemia: Status: Acute Code(s): D62 - Acute posthem
== END 2023-05-23 14:30 | disposition home or self-care (01) | DRG 787 ==
PROVIDERS: Admitting Provider Obstetrics & Gynecology; PCP Family Medicine; Visit Provider Obstetrics & Gynecology
PROC: 10D00Z1 Extraction of Products of Conception, Low, Open Approach (ICD-10-PCS; principal; 2023-05-21 07:30)
DX: O36.63X0 Maternal care for excessive fetal growth, third trimester, not applicable or unspecified (principal); D62 Acute posthemorrhagic anemia; Z3A.39 39 weeks gestation of pregnancy; Z37.0 Single live birth; O99.214 Obesity complicating childbirth; Z86.11 Personal history of tuberculosis; O90.81 Anemia of the puerperium
CPT/HCPCS: 59514; 36415; 59025; 80053; 80305; 81001; 85025; 86850; 94761; C9290; G0283; J2405

== ENCOUNTER 2023-05-27 13:49 | Emergency (ER) | payer OTHER, SELFPAY ==
[2023-05-27] VITALS (8 sets, daily range): BP systolic 107–145; BP diastolic 66–90; PULSE 69–90; RESP 16–20; TEMP 36.6–36.8; O2SAT 99–100; BMI 43.4
--- NOTE | 2023-05-27 14:10 | ECG_ITS ---
APPROVED REPORT Exam: Resting ECG HR:84 bpm ECG Measurements Heart Rate 84 AXES WV 135 P 53 QRSd 81 QRS 31 QT 331 T 45 QTc 372 Conclusion SINUS RHYTHM LOW QRS VOLTAGE IN PRECORDIAL LEADS [QRS DEFLECTION < 1.0 mV IN CHEST LEADS] BORDERLINE ECG UNCONFIRMED REPORT Electronically signed by : Perry Granado MD 05/27/2023 21:11:49
[2023-05-27 14:18] LABS: Basophils % 0.1 % (0.1-2.0); Eosinophils # 0.1 K/mm3 (0.0-0.4); Hemoglobin 8.1 g/dL (12.2-16.2); Lymphocytes # 1.9 K/mm3 (0.7-4.5); Lymphocytes % 16.9 % (10-50); Mean Corpuscular Volume 88.3 fl (81-99); Monocytes # 0.4 K/mm3 (0.1-1.0); Monocytes % 3.5 % (1.7-9.3); Neutrophils # 8.9 K/mm3 (1.8-7.8); Neutrophils % 78.5 % (37.0-80.0); Platelet Count 339 K/mm3 (142-424); Red Cell Distribution Width 15.8 % (11.5-17.5); White Blood Count 11.4 K/mm3 (4.8-10.8)
[2023-05-27 14:19] LABS: Chloride 109 mmol/L (98-107); Sodium 138 mmol/L (136-145)
[2023-05-27 14:22] LABS: Alanine Aminotransferase 57 U/L (12-78); Albumin Level 3.4 g/dl (3.5-5.0); Albumin/Globulin Ratio 1.3 (1.1-1.8); Alkaline Phosphatase 158 U/L (38-126); Aspartate Amino Transferase 51 U/L (14-36); Bilirubin,Total 0.2 mg/dl (0.2-1.3); Blood Urea Nitrogen 12 mg/dl (7-17); Carbon Dioxide 25 mmol/L (22.0-30.0); Creatinine Clearance Estimated 90 mL/min (50-200); Estimated Glomerular Filt Rate 100 ml/min (>60); GFR (African American) 121 ML/MIN (>60); Globulin 2.6 g/dL (1.3-3.2); Glucose 82 mg/dl (74-100)
[2023-05-27 14:23] LABS: Calcium 8.1 mg/dl (8.4-10.2)
[2023-05-27 14:27] LABS: Hematocrit 23.8 % (37.0-47.0)
[2023-05-27 14:37] LABS: Chloride 109 mmol/L (98-107); Potassium 4.2 mmoL/L (3.5-5.1); Sodium 138 mmol/L (136-145)
[2023-05-27 14:39] LABS: Alanine Aminotransferase 56 U/L (12-78); Alkaline Phosphatase 165 U/L (38-126); Anion Gap 10.2 mEq/L (5-15); Aspartate Amino Transferase 50 U/L (14-36); Bilirubin,Direct 0.2 mg/dl (0.0-0.4); Bilirubin,Total 0.2 mg/dl (0.2-1.3); Blood Urea Nitrogen 12 mg/dl (7-17); Carbon Dioxide 23 mmol/L (22.0-30.0); Creatinine Clearance Estimated 90 mL/min (50-200); Estimated Glomerular Filt Rate 100 ml/min (>60); GFR (African American) 121 ML/MIN (>60)
[2023-05-27 14:40] LABS: Albumin Level 3.2 g/dl (3.5-5.0); Albumin/Globulin Ratio 1.3 (1.1-1.8); Calcium 8.2 mg/dl (8.4-10.2); Globulin 2.4 g/dL (1.3-3.2); Glucose 80 mg/dl (74-100); Lipase 37 U/L (23-300); Total Protein,Serum 5.6 g/dl (6.3-8.2)
--- NOTE | 2023-05-27 14:43 | XR_ITS ---
FINAL REPORT CLINICAL HISTORY: Shortness of breath, recent 05/21/23 COMPARISON: 01/09/2021 FINDINGS: A portable view of the chest was obtained. Cardiac and mediastinal silhouettes are within normal limits. The lungs are clear. There is no pleural effusion or pneumothorax. IMPRESSION: No acute process on this portable exam. Reviewed, Interpreted and Dictated by Archana Gamboa MD Transcribed by Elinor Chiu Authenticated and [facility]
[2023-05-27 14:49] LABS: Microscopic, Urine URINE MICROSCOPIC (MICROSCOPIC)
[2023-05-27 14:50] LABS: Reticulocyte % (Auto) 3.7 % (0.9-3.2)
[2023-05-27 14:55] LABS: Appearance,Urine CLEAR (Clear); Bilirubin,Urine Negative (Negative); Blood, Urine 2+ (Negative); Color,Urine YELLOW (Yellow); Glucose,Urine (UA) Negative (Negative); Ketones,Urine Negative (Negative); Leukocyte Esterase,Urine Negative (Negative); Nitrate,Urine Negative (Negative); Protein,Urine Negative (Negative); Urobilinogen,Urine 0.2 EU/dl (0.2)
--- NOTE | 2023-05-27 14:56 | HMH.EDGENADL ---
Discharge Plan Disposition Patient Disposition: Home, Self-Care Condition: Good Prescriptions Prescriptions: New lidocaine [Lidoderm] 5 % adhesive patch,medicated 1 patch topical DAILY Qty: 15 0RF Rx Instructions: leave on most painful area for up to 12 hrs No Action ferrous sulfate 325 mg (65 mg iron) tablet,delayed release (DR/EC) 325 mg PO DAILY Patient Comments: TAKE 1 TABLET BY MOUTH ONCE DAILY PNV cmb#95-ferrous fumarate-FA [] 28 mg iron- 800 mcg Tablet 1 tab PO DAILY ibuprofen 400 mg Tablet 800 mg PO Q8H Qty: 40 0RF oxycodone 5 mg Tablet 5 mg PO Q4HP PRN (Reason: Moderate To Severe Pain (4-10)) Qty: 15 0RF Referrals Follow up/Referrals: Jonathan Walsh MD [Primary Care Provider] - See instructions Marcella Short DO [Staff Physician] - See instructions Activity Restrictions/Add. Instructions Additional Instructions/Restrictions: You were evaluated in the emergency department today. Please continue taking your Tylenol and ibuprofen at home as needed for your pain. Please follow-up closely with your SCIENCE TECHNICIAN. Dr. Mendoza has worked on arranging iron transfusion for you as an outpatient. If you have not heard from them over the next 24 hours, I would call them right away. Return to the emergency department for any new or worsening symptoms, such as worsening pain, worsening bleeding, worsening lightheadedness, or other concerns. Clinical Impressions Clinical Impression: Symptomatic anemia, Low back pain Instructions Patient Instructions: Anemia Discharge ED Provider: Carolina Magaña General Adult HPI <Danny Beverly MD - Last Filed: 05/27/23 15:21> General Chief complaint: Shortness of Breath/Dyspnea Stated complaint: 6 days post , back pain, cough Time Seen by Provider: 05/27/23 13:52 Mode of Arrival: Ambulatory Source of Information: Patient Limitations: No Limitations Description of Symptoms (Recalled from ER Triage Doc. by RN): 28 yo F presents to ED with c/o shortness of air, cough, lower back pain. pt is 6 days pp. pt reports since she went home form hospital on thursday night she has been having symptoms. pt reports taking tylenol and ibuprofen around the clock with no relief. pt did vomit during her c section. History of Present Illness HPI narrative: 28-year-old female recently postop from section 6 days prior to arrival presenting with generalized weakness, coughing, exertional shortness of breath, lower abdominal and lower back pain. Patient states that she received and was on the hemorrhage protocol, in the obstetric unit. Did not receive blood, but received iron infusion prior to discharge. Denies fevers or chills chest pain, nausea or vomiting, but has been feeling generally pretty unwell since being discharged. No urinary symptoms, vaginal discharge or bleeding. Incision site does not appear to be or feel as if it is infected. Related Data Home Medications Medication Instructions Recorded Confirmed ferrous sulfate 325 mg (65 mg 325 mg PO DAILY Supplement 04/07/23 05/25/23 iron) tablet,delayed release vit no.95-ferrous 1 tab PO DAILY Supplement 05/21/23 05/25/23 fumarate 28 mg-folic acid 800 mcg tablet () Previous Rx's Medication Instructions Recorded ibuprofen 400 mg tablet 800 mg PO Q8H #40 tabs 05/23/23 oxycodone 5 mg tablet 5 mg PO Q4HP PRN Moderate To 05/23/23 Severe Pain (4-10) #15 tabs lidocaine 5 % topical patch 1 patch topical DAILY #15 ea 05/27/23 (Lidoderm) Allergies Allergy/AdvReac Type Severity Reaction Status Date / Time No Known Allergies Allergy Verified 05/25/23 10:16 [facility] <Danny Beverly MD - Last Filed: 05/27/23 15:21> [facility] Disclaimer: The information contained in this section may have been updated after the patient was seen, as this information can be updated by other users. Medical History (Reviewed 05/25/23 @ 11:26 by Marcella Short DO
[2023-05-27 15:12] LABS: Bacteria,Urine Trace /lpf; WBC,Urine Occasional #/hpf (0-3)
--- NOTE | 2023-05-27 15:12 | PC.NURSE ---
Dr. Beverly at BS to update pt on results and POC
--- NOTE | 2023-05-27 15:19 | US_ITS ---
PROCEDURE: US TRANSVAGINAL CLINICAL INDICATION: persistent bleeding after COMPARISON: No exams were available for comparison FINDINGS: Transabdominal l sonographic images of the pelvis were obtained. UTERUS: 16.5 cm x 11.2 cmx 7.5 cm there is a small collection of blood/clot within the uterine cavity measuring 3.7 cm x 1.8 cm. This collection appears just below the incision. LEFT OVARY: 3.5 cmx3.2 cmx2.4cm with a volume of 14ml. RIGHT OVARY: 2.6 cmx 3.1 cmx2.0 cm with a volume of 8.2ml. Both ovaries are seen and appear normal. Doppler flow to both ovaries are seen. There is no fluid in the cul-de-sac. IMPRESSION: 1. Enlarged uterus. 2. There is a small collection of fluid measuring 3.7 x 1.8 cm below the uterine incision within the endometrial cavity. 3. No evidence of retained products of conception. 4. No obvious fluid collection within the cul-de-sac. 5. Results were discussed with the emergency room physician. Dictated by: Joey Mendoza MD 05/27/2023 16:43 Joey Mendoza MD in OV 05/27/2023 16:43
--- NOTE | 2023-05-27 15:59 | PC.NURSE ---
Pt returned from RAD
--- NOTE | 2023-05-27 17:53 | PC.NURSE ---
Dr. Magaña at BS to update pt on current POC
== END 2023-05-27 18:07 | disposition home or self-care (01) ==
PROVIDERS: Emergency Medicine; Emergency Provider Emergency Medicine; PCP Family Medicine
DX: O99.893 Other specified diseases and conditions complicating puerperium (principal); R10.30 Lower abdominal pain, unspecified; M54.59 Other low back pain; R06.02 Shortness of breath; R05.9 Cough, unspecified; R53.1 Weakness; D64.9 Anemia, unspecified; R00.0 Tachycardia, unspecified
CPT/HCPCS: 71045; 76856; 80053; 81001; 82248; 83690; 85025; 85044; 86850; 93005; 96361; 96374; 96375; 96376; 99285; J0131; J2405

== ENCOUNTER 2023-05-28 15:13 | Outpatient (CLI) | payer OTHER, SELFPAY ==
--- NOTE | 2023-05-28 15:30 | PC.NURSE ---
20G IV inserted in RAC, Pt tolerated IV insertion well, 1 attempt made
--- NOTE | 2023-05-28 16:10 | PC.NURSE ---
Addendum entered by Jefferson Cox RN 05/28/23 16:12: Pt arrived at 1520 Original Note: Pt arrived to the department for IV Venofer infusion. Pt reports not feeling well
--- NOTE | 2023-05-28 17:15 | PC.NURSE ---
1630 IV infusion complete, IV removed and D/C teaching provided. 1635 Pt ambulated off the unit at this time
--- NOTE | 2023-05-28 17:17 | PC.NURSE ---
1509- Dr. Short called with orders to give Pt IV venofer and D/C home when complete
== END 2023-05-28 16:40 | disposition home or self-care (01) ==
LOC: OBOUT 15:14 → OB 15:15
PROVIDERS: PCP Family Medicine; Visit Provider Obstetrics & Gynecology
DX: O90.81 Anemia of the puerperium (principal); D62 Acute posthemorrhagic anemia; R19.7 Diarrhea, unspecified
CPT/HCPCS: 96365; G0463; J1756

== ENCOUNTER 2023-05-30 13:51 | Emergency (ER) | payer OTHER, SELFPAY ==
[2023-05-30 13:52] VITALS: BP 126/75; PULSE 73; RESP 16; TEMP 36.6; O2SAT 99; BMI 43.4
--- NOTE | 2023-05-30 15:28 | CT_ITS ---
PROCEDURE INFORMATION: Exam: CT Head Without Contrast Exam date and time: 05/30/2023 4:37 PM Age: 28 years old Clinical indication: Pain; Headache; Migraine; Additional info: Migraine, S/P epidural c/section+hemorrhage TECHNIQUE: Imaging protocol: Computed tomography of the head without contrast. Radiation optimization: All CT scans at this facility use at least one of these dose optimization techniques: automated exposure control; mA and/or kV adjustment per patient size (includes targeted exams where dose is matched to clinical indication); or iterative reconstruction. REPORTING DATA: Count of CT and Cardiac NM exams in prior 12 months: This patient has received 0 known CTs and 0 known cardiac nuclear medicine studies in the 12 months prior to the current study. COMPARISON: CT SINUS WO CON 11/23/2019 8:28 AM FINDINGS: Brain: No evidence of acute parenchymal hemorrhage, extra-axial collection or local regional mass effect. Cerebral ventricles: The ventricles, sulci and cisterns are normal in size and configuration. No hydrocephalus or midline structure shift Pituitary gland and sella: Sellar/parasellar structures, orbits and craniocervical junction are unremarkable Paranasal sinuses: Scattered mucosal thickening throughout the paranasal sinuses. Mastoid air cells: Visualized mastoid air cells are well aerated. Bones/joints: No calvarial fracture Soft tissues: Unremarkable. IMPRESSION: No acute intracranial abnormality. No calvarial fracture.
[2023-05-30 15:51] LABS: Basophils % 0.1 % (0.1-2.0); Eosinophils # 0.2 K/mm3 (0.0-0.4); Eosinophils % 1.6 % (0.1-12.0); Hematocrit 24.7 % (37.0-47.0); Hemoglobin 8.3 g/dL (12.2-16.2); Lymphocytes # 2.1 K/mm3 (0.7-4.5); Lymphocytes % 21.2 % (10-50); Mean Corpuscular HGB Conc 33.7 g/dL (31.8-35.4); Mean Corpuscular Hemoglobin 29.7 pg (27.0-31.2); Mean Platelet Volume 7.7 fl (7.4-10.4); Monocytes # 0.4 K/mm3 (0.1-1.0); Monocytes % 4.1 % (1.7-9.3); Neutrophils # 7.2 K/mm3 (1.8-7.8); Platelet Count 333 K/mm3 (142-424); Red Blood Count 2.81 M/mm3 (4.20-5.40); Red Cell Distribution Width 16.2 % (11.5-17.5); White Blood Count 9.8 K/mm3 (4.8-10.8)
[2023-05-30 15:55] LABS: Chloride 107 mmol/L (98-107); Sodium 138 mmol/L (136-145)
[2023-05-30 15:58] LABS: Alanine Aminotransferase 80 U/L (12-78); Albumin Level 3.5 g/dl (3.5-5.0); Albumin/Globulin Ratio 1.3 (1.1-1.8); Alkaline Phosphatase 151 U/L (38-126); Aspartate Amino Transferase 52 U/L (14-36); Bilirubin,Total 0.3 mg/dl (0.2-1.3); Blood Urea Nitrogen 8 mg/dl (7-17); Calcium 8.2 mg/dl (8.4-10.2); Carbon Dioxide 24 mmol/L (22.0-30.0); Creatinine Clearance Estimated 79 mL/min (50-200); Estimated Glomerular Filt Rate 85 ml/min (>60); GFR (African American) 103 ML/MIN (>60); Globulin 2.6 g/dL (1.3-3.2); Glucose 89 mg/dl (74-100); Total Protein,Serum 6.1 g/dl (6.3-8.2)
--- NOTE | 2023-05-30 16:31 | PC.NURSE ---
called/ paged Anesthesia 1629 bobby fajardo [employer]
[2023-05-30 16:49] LABS: Coronavirus 19, PCR Not Detected (NotDetected); Influenza A, PCR Not Detected (NotDetected); Influenza B, PCR Not Detected (NotDetected)
--- NOTE | 2023-05-30 17:01 | HMH.EDGENADL ---
Discharge Plan Disposition Patient Disposition: Home, Self-Care Condition: Good Prescriptions Prescriptions: No Action ferrous sulfate 325 mg (65 mg iron) tablet,delayed release (DR/EC) 325 mg PO DAILY Patient Comments: TAKE 1 TABLET BY MOUTH ONCE DAILY PNV cmb#95-ferrous fumarate-FA [] 28 mg iron- 800 mcg Tablet 1 tab PO DAILY ibuprofen 400 mg Tablet 800 mg PO Q8H Qty: 40 0RF oxycodone 5 mg Tablet 5 mg PO Q4HP PRN (Reason: Moderate To Severe Pain (4-10)) Qty: 15 0RF lidocaine [Lidoderm] 5 % adhesive patch,medicated 1 patch topical DAILY Qty: 15 0RF Rx Instructions: leave on most painful area for up to 12 hrs Referrals Follow up/Referrals: Jonathan Walsh MD [Primary Care Provider] - See instructions Activity Restrictions/Add. Instructions Additional Instructions/Restrictions: You were evaluated in the emergency department today. Please follow-up with ANALYTICAL TECHNICIAN on Thursday at 8 AM. Hydrate at home. Take Tylenol and ibuprofen at home as needed for headache. Return to the emergency department for new or worsening symptoms. Clinical Impressions Clinical Impression: Migraine, Diarrhea, Hypocalcemia Instructions Patient Instructions: DI for Migraine, DI for Diarrhea and Traveler's Diarrhea -- Adult Discharge ED Provider: Carolina Magaña General Adult HPI General Chief complaint: Headache Stated complaint: h/a, diarrhea Time Seen by Provider: 05/30/23 14:23 Mode of Arrival: Ambulatory Source of Information: Patient Limitations: No Limitations Description of Symptoms (Recalled from ER Triage Doc. by RN): Patient complaint of left sided headache since 5 am, diarrhea for 5 days and states that her c section incision is seaping and draining. History of Present Illness HPI narrative: This patient is a 28-year-old female with history of obesity and recent in 05/21/2023 presented to the emergency department for evaluation with concern for headache. She states that it is mostly on the left side of her head. She does note that she has a history of migraines and this feels similar, but somewhat worse. She also has photophobia and phonophobia. She notes that she has had a headache since delivery, but yesterday she was without headache for the day. She felt much better yesterday. Patient was evaluated here 05/27/2023 by myself in the emergency department for similar symptoms on medical record review. She was found to be anemic persistently after delivery, an outpatient iron infusion was set up. Patient had this and stated that she felt like she was feeling better afterward, but now today she is much worse. She does note that she had some serosanguineous drainage from her incision yesterday. She also notes that she has had 5 days of diarrhea. Her vaginal bleeding has been stable with no significant increase in bleeding. No other concerns noted at this time Related Data Home Medications Medication Instructions Recorded Confirmed ferrous sulfate 325 mg (65 mg 325 mg PO DAILY Supplement 04/07/23 05/28/23 iron) tablet,delayed release vit no.95-ferrous 1 tab PO DAILY Supplement 05/21/23 05/28/23 fumarate 28 mg-folic acid 800 mcg tablet () Previous Rx's Medication Instructions Recorded ibuprofen 400 mg tablet 800 mg PO Q8H #40 tabs 05/23/23 oxycodone 5 mg tablet 5 mg PO Q4HP PRN Moderate To 05/23/23 Severe Pain (4-10) #15 tabs lidocaine 5 % topical patch 1 patch topical DAILY #15 ea 05/27/23 (Lidoderm) Allergies Allergy/AdvReac Type Severity Reaction Status Date / Time No Known Allergies Allergy Verified 05/28/23 14:29 [facility] Disclaimer: The information contained in this section may have been updated after the patient was seen, as this information can be updated by other users. Medical History 39 weeks gestation of Acute blood loss anemia Fatty liver Irr
[2023-05-30 17:59] LABS: Microscopic, Urine URINE MICROSCOPIC (MICROSCOPIC)
[2023-05-30 18:08] LABS: Appearance,Urine CLEAR (Clear); Bilirubin,Urine Negative (Negative); Blood, Urine 2+ (Negative); Color,Urine YELLOW (Yellow); Glucose,Urine (UA) Negative (Negative); Ketones,Urine Negative (Negative); Leukocyte Esterase,Urine Negative (Negative); Nitrate,Urine Negative (Negative); Protein,Urine Negative (Negative); Specific Gravity, Urine <= 1.005 (1.005-1.030); Urobilinogen,Urine 0.2 EU/dl (0.2)
[2023-05-30 18:35] LABS: Squamous Epithelial Cell,Urine Occasional #/hpf (0-5); WBC,Urine Occasional #/hpf (0-3)
[2023-05-30 18:35] LABS: Adenovirus,PCR Not Detected (NotDetected); Coronavirus 19, PCR Not Detected (NotDetected); Coronavirus 229E Not Detected (NotDetected); Coronavirus NL63 Not Detected (NotDetected); Coronavirus OC43 Not Detected (NotDetected); Coronovirus HKU1,PCR Not Detected (NotDetected); Human Metapneumovirus Not Detected (NotDetected); Influenza A, PCR Not Detected (NotDetected); Influenza AH1, 2009 Not Detected (NotDetected); Influenza AH1, PCR Not Detected (NotDetected); Influenza AH3,PCR Not Detected (NotDetected); Influenza B, PCR Not Detected (NotDetected); Parainfluenza 1, PCR Not Detected (NotDetected); Parainfluenza 2, PCR Not Detected (NotDetected); Parainfluenza 3, PCR Not Detected (NotDetected); Parainfluenza 4, PCR Not Detected (NotDetected); Respiratory Syncytial Virus Not Detected (NotDetected); Rhinovirus/Enterovirus Not Detected (NotDetected)
[2023-05-30 21:02] VITALS: BP 122/70; PULSE 64; RESP 14; TEMP 36.8; O2SAT 96
== END 2023-05-30 21:03 | disposition home or self-care (01) ==
PROVIDERS: Emergency Provider Emergency Medicine; PCP Family Medicine
DX: R51.9 Headache, unspecified (principal); R19.7 Diarrhea, unspecified; E83.51 Hypocalcemia
CPT/HCPCS: 70450; 80053; 81001; 83735; 85025; 87040; 87086; 87632; 87635; 87636; 96360; 96361; 96365; 96374; 96375; 99285; J0131; J3475

== ENCOUNTER 2023-08-30 16:30 | Emergency (ER) | payer OTHER, SELFPAY ==
[2023-08-30 16:42] VITALS: BP 118/76; PULSE 107; RESP 18; TEMP 36.8; O2SAT 99; BMI 40.2
--- NOTE | 2023-08-30 16:42 | ED_ITS ---
Discharge Plan Disposition Patient Disposition: Home, Self-Care Condition: Good Prescriptions Prescriptions: New nnmslygbvdvlvzq-urcejwzrc-PT [Bromfed DM] 2-30-10 mg/5 mL Syrup 5 ml PO Q6H PRN (Reason: Cough) Qty: 240 0RF ondansetron 4 mg Tablet,Disintegrating 4 mg PO Q8H PRN (Reason: Nausea) Qty: 12 0RF No Action topiramate 25 mg capsule,extended release 24hr 25 mg PO DAILY Qty: 30 2RF Referrals Follow up/Referrals: Jonathan Walsh MD [Primary Care Provider] - See instructions Activity Restrictions/Add. Instructions Additional Instructions/Restrictions: Drink plenty of fluids. Take tylenol or ibuprofen for pain or fever. Take the medications as directed. Follow up with your regular doctor. GO TO THE ER FOR ANY WORSENING SYMPTOMS Clinical Impressions Clinical Impression: Acute viral syndrome Stand Alone Forms Stand Alone Forms: Work/School Release Instructions Patient Instructions: DI for Viral Syndrome Discharge ED Provider: Devaughn Veloz [facility] General Stated complaint: V/D body aches, steve Time Seen by Provider: 08/30/23 16:42 Related Data Previous Rx's Medication Instructions Recorded topiramate 25 mg capsule,extended 25 mg PO DAILY #30 caps 06/02/23 release 24 hr ukxwirqekralbet-rrvusqiosscnrrl-DK 5 ml PO Q6H PRN Cough #240 mL 08/30/23 2 mg-30 mg-10 mg/5 mL oral syrup (Bromfed DM) ondansetron 4 mg disintegrating 4 mg PO Q8H PRN Nausea #12 tabs 08/30/23 tablet Allergies Allergy/AdvReac Type Severity Reaction Status Date / Time No Known Allergies Allergy Verified 07/02/23 13:35 [facility] Disclaimer: The information contained in this section may have been updated after the patient was seen, as this information can be updated by other users. Medical History Acute blood loss anemia Fatty liver Irregular periods/menstrual cycles Obesity (BMI 30.0-34.9) Tuberculosis Surgical History History of cholecystectomy History of tonsillectomy S/P Family History Other Asthma Cancer Coronary artery disease Diabetes Heart attack Hyperlipidemia Hypertension Kidney disease Thyroid disorder Tuberculosis Social History Smoking Status: Never smoker alcohol intake: never substance use type: denies use current occupational status: employed Travel in the last 8 weeks: None household members: family and other housing: house current occupation: [employer] current occupational exposures/hazards: No caffeine: No ROS Obtained: Yes All systems reviewed & no additional complaints except as documented Constitutional Constitutional: Reports chills and Reports fever(s) Eyes Eyes: Denies eye discharge ENT Ears, Nose, Mouth, and Throat: Reports as per HPI Cardiovascular Cardiovascular: Denies chest pain Respiratory Respiratory: Denies chest congestion and Reports cough Gastrointestinal Gastrointestingal: Reports nausea; Denies abdominal pain, constipation, cramping, diarrhea or vomiting Musculoskeletal Musculoskeletal: Denies arthralgias Integumentary/Breasts Skin/Breast: Denies rash Neurologic Neurologic: Denies paresthesias Physical Exam General General appearance: alert and in no apparent distress Head Head exam: atraumatic, normocephalic and normal inspection Eye Eye exam: Present normal appearance, PERRL and EOMI ENT ENT exam: Present normal exam, normal oropharynx, mucous membranes moist, TM's normal bilaterally and normal external ear exam Neck Neck exam: Present normal inspection, full ROM and trachea midline; Absent meningismus or lymphadenopathy Chest Chest inspection: Present normal inspection and symmetric chest wall rise; Absent tenderness Respiratory Respiratory exam: Present normal lung sounds bilaterally; Absent respiratory distress Cardiovascular Cardiovascular exam: Present regular rate and normal rhythm; Absent JVD Abdominal Exam Abdominal exam: Present soft and normal bowel sounds; Absent distention, tenderness or guarding Extremities Exam Extremities exam: Present normal inspection, full ROM and normal capillary refill; Absent calf tenderness Back Exam Back exam: Present normal inspection; Absent tenderness Neurological Exam Neurological exam: Present alert and oriented X3 Psychiatric Psychiatric exam: Present normal affect and normal mood Skin Skin exam: Present warm, dry, intact and normal color Lymphatic Lymphatic Findings: no adenopathy Medical Decision Making Medical Records Medical records reviewed: No I reviewed the patient's medical records. Braydon Inquiry Pt receiving controlled substance: No Lab Data Lab results reviewed: Yes I reviewed the patient's lab results.
[2023-08-30 16:57] LABS: UTC Influenza A Antigen Negative (Negative)
[2023-08-30 16:58] LABS: UTC Influenza B Antigen Negative (Negative)
[2023-08-30 17:04] LABS: Adenovirus F 40/41, stool Not Detected (NotDetected); Astrovirus Not Detected (NotDetected); Campylobacter Not Detected (NotDetected); Clostridium Difficile A/B, PCR Not Detected (NotDetected); Cryptosporidium Not Detected (NotDetected); Cyclospora Cayetanesis Not Detected (NotDetected); Entamoeba histolytica Not Detected (NotDetected); Enteroaggregative E coli Not Detected (NotDetected); Enteropathogenic E coli Not Detected (NotDetected); Enterotoxigenic E coli Not Detected (NotDetected); Giardia lamblia Not Detected (NotDetected); Plesimonas Shigalloides, PCR Not Detected (NotDetected); Rotavirus A Not Detected (NotDetected); Salmonella, PCR Not Detected (NotDetected); Shiga-like toxin E coli Not Detected (NotDetected); Shigella Enterovasive E coli Not Detected (NotDetected); Vibrio Cholerae Not Detected (NotDetected); Vibrio, PCR Not Detected (NotDetected); Yersinia Entercolitica, PCR Not Detected (NotDetected)
[2023-08-30 17:30] VITALS: BP 118/76; PULSE 107; RESP 18; TEMP 36.8; O2SAT 99
[2023-08-31 10:27] LABS: Adenovirus,PCR Not Detected (NotDetected); Coronavirus 19, PCR Not Detected (NotDetected); Coronavirus 229E Not Detected (NotDetected); Coronavirus NL63 Not Detected (NotDetected); Coronavirus OC43 Not Detected (NotDetected); Coronovirus HKU1,PCR Not Detected (NotDetected); Human Metapneumovirus Not Detected (NotDetected); Influenza A, PCR Not Detected (NotDetected); Influenza AH1, 2009 Not Detected (NotDetected); Influenza AH1, PCR Not Detected (NotDetected); Influenza AH3,PCR Not Detected (NotDetected); Influenza B, PCR Not Detected (NotDetected); Parainfluenza 1, PCR Not Detected (NotDetected); Parainfluenza 2, PCR Not Detected (NotDetected); Parainfluenza 3, PCR Not Detected (NotDetected); Parainfluenza 4, PCR Not Detected (NotDetected); Respiratory Syncytial Virus Not Detected (NotDetected); Rhinovirus/Enterovirus Not Detected (NotDetected)
[2023-09-04 08:08] LABS: Sapovirus Not Detected (NotDetected)
[2023-09-04 08:58] LABS: Norovirus Detected (NotDetected)
== END 2023-08-30 17:31 | disposition home or self-care (01) ==
PROVIDERS: Emergency Provider Nurse Practitioner Family; PCP Family Medicine
DX: A08.11 Acute gastroenteropathy due to Norwalk agent (principal); R05.9 Cough, unspecified; M79.18 Myalgia, other site
CPT/HCPCS: 87507; 87632; 87635; 87804; 99212; 99214; G0463

== ENCOUNTER 2024-01-23 12:32 | Emergency (ER) | payer OTHER, SELFPAY ==
[2024-01-23 12:40] VITALS: BP 122/79; PULSE 92; RESP 18; TEMP 36.9; O2SAT 100; BMI 38.5
--- NOTE | 2024-01-23 12:51 | EXP.UTC ---
Discharge Plan Disposition Patient Disposition: Home, Self-Care Condition: Good Prescriptions Prescriptions: New azithromycin [Zithromax] 250 mg tablet 250 mg PO UD DOSE PK Qty: 6 0RF Rx Instructions: Take two (2) tablets today, then one (1) tablet days #2 thru #5 methylprednisolone 4 mg Tablets,Dose Pack 4 mg PO DIRECTED 6 Days Qty: 21 0RF Rx Instructions: Take 1 pack as directed for 6 days aucjvikzarstptr-dkccqkjbq-IH [Bromfed DM] 2-30-10 mg/5 mL Syrup 5 ml PO Q6H PRN (Reason: Cough) Qty: 240 0RF No Action sertraline 25 mg tablet 25 mg PO DAILY Qty: 30 9RF Classic 28 mg iron- 800 mcg tablet 1 tab PO DAILY Referrals Follow up/Referrals: Jonathan Walsh MD [Primary Care Provider] - See instructions Activity Restrictions/Add. Instructions Additional Instructions/Restrictions: Drink plenty of fluids. Take tylenol or ibuprofen for pain or fever. Take the medications as directed. Follow up with your regular doctor. GO TO THE ER FOR ANY WORSENING SYMPTOMS Don't start the oral steroids (medrol dose pack) until tomorrow since you had the shot her Clinical Impressions Clinical Impression: Sinusitis Instructions Patient Instructions: Sinusitis, DI for Sinusitis Discharge ED Provider: Devaughn Veloz [facility] General Stated complaint: congestion, cough, body aches, fever Mode of Arrival: Ambulatory Source of Information: Patient Limitations: No Limitations Time Seen by Provider: 01/23/24 12:41 Description of Symptoms (Recalled from Triage Doc. by RN): Pt has sinus pressure. HEENT Symptoms (Recalled from RN notes): Yes Resp Symptoms (Recalled from RN notes): No Skin Symptoms (Recalled from RN notes): No MS Symptoms (Recalled from RN notes): No Functional Status (Recalled from RN notes): n/a Related Data Home Medications Medication Instructions Recorded Confirmed vits no.126-ferrous fum 1 tab PO DAILY 09/09/23 01/23/24 28 mg iron-folic acid 800 mcg tablet (Classic ) Previous Rx's Medication Instructions Recorded sertraline 25 mg tablet 25 mg PO DAILY #30 tabs 11/23/23 azithromycin 250 mg tablet 250 mg PO UD DOSE PK #6 tabs 01/23/24 (Zithromax) gfftefzqwpdimbv-etapdwpahlodyyx-MC 5 ml PO Q6H PRN Cough #240 mL 01/23/24 2 mg-30 mg-10 mg/5 mL oral syrup (Bromfed DM) methylprednisolone 4 mg tablets in 4 mg PO DIRECTED 6 days #21 tabs 01/23/24 a dose pack Allergies Allergy/AdvReac Type Severity Reaction Status Date / Time No Known Allergies Allergy Verified 01/23/24 12:44 Worker's Comp Is this a Worker's Comp case?: No PFSH PFS Disclaimer: The information contained in this section may have been updated after the patient was seen, as this information can be updated by other users. Medical History Anxiety Acute blood loss anemia Fatty liver Tuberculosis Irregular periods/menstrual cycles Obesity (BMI 30.0-34.9) Surgical History S/P History of tonsillectomy History of cholecystectomy Family History Other Asthma Cancer Coronary artery disease Diabetes Heart attack Hyperlipidemia Hypertension Kidney disease Thyroid disorder Tuberculosis Social History Smoking Status: Never smoker alcohol intake: never substance use type: denies use current occupational status: employed Travel in the last 8 weeks: None household members: family and other housing: house current occupation: [employer] current occupational exposures/hazards: No caffeine: No ROS Obtained: Yes All systems reviewed & no additional complaints except as documented Constitutional Constitutional: Denies chills, Reports fever(s) and Reports poor appetite Eyes Eyes: Denies eye discharge ENT Ears, Nose, Mouth, and Throat: Denies ear discharge, Reports otalgia, Denies hearing loss, Denies sinus pain and Reports sore throat Cardiovascular Cardiovascular: Denies chest pain and Denies dyspnea Respiratory Respiratory: Denies chest congestion, Reports cough and Denies dyspnea Gastrointestinal Gastrointestingal: Denies abdominal pain, diarrhea, nausea or vomiting Musculoskeletal Musculoskeletal: Denies arthralgias Integumentary/Breasts Skin/Breast: Denies rash Physical Exam General General appearance: alert and in no apparent distress Head Head exam: atraumatic, normocephalic and normal inspection Eye Eye exam: Present normal appearance; Absent PERRL or EOMI ENT ENT exam: Present mucous membranes moist and normal external ear exam Expanded ENT Exam TM/Canal exam: Bilateral TM: erythema, bulging and effusion Nose exam: Absent sinus tenderness Nasal speculum exam: Bilateral: normal Mouth exam: Present normal external inspection and other; Absent drooling Teeth exam: Present normal inspection Throat exam: Present tonsillar erythema and tonsillomegaly Neck Neck exam: Present normal inspection, full ROM and trachea midline; Absent tenderness, meningismus or lymphadenopathy Chest Chest inspection: Present normal inspection and symmetric chest wall rise; Absent tenderness Respiratory Respiratory exam: Present normal lung sounds bilaterally; Absent respiratory distress, wheezes or stridor Cardiovascular Cardiovascular exam: Present regular rate, normal rhythm and normal heart sounds; Absent tachycardia or irregular rhythm Abdominal Exam Abdominal exam: Present soft and normal bowel sounds; Absent distention, tenderness, guarding, rebound or rigidity Extremities Exam Extremities exam: Present normal inspection and normal capillary refill; Absent tenderness, joint swelling or calf tenderness Back Exam Back exam: Present normal inspection and full ROM; Absent tenderness, CVA tenderness (R) or CVA tenderness (L) Neurological Exam Neurological exam: Present alert, oriented X3, CN II-XII intact, normal gait and reflexes normal; Absent motor sensory deficit Psychiatric Psychiatric exam: Present normal affect and normal mood Skin Skin exam: Present warm, dry, intact and normal color Lymphatic Lymphatic Findings: no adenopathy Medical Decision Making Medical Records Medical records reviewed: No I reviewed the patient's medical records. Braydon Inquiry Pt receiving controlled substance: No Vital Signs: 01/23/24 12:40 Temperature 98.4 F Temperature Source Oral Pulse Rate [Right Radial] 92 H Respiratory Rate 18 Blood Pressure [Right Arm] 122/79 Blood Pressure Mean [Right Arm] 93 Blood Pressure Source [Right Arm] Automatic Cuff Blood Pressure Position [Right Arm] Sitting 02 Sat by Pulse Oximetry 100 Oxygen Delivery Method Room Air
[2024-01-23] MEDS: DEXAMETHASONE 4MG/ML 1ML VIAL 8 MG IM (13:06)
[2024-01-23 13:43] VITALS: BP 122/79; PULSE 92; RESP 18; TEMP 36.9; O2SAT 100
== END 2024-01-23 13:43 | disposition home or self-care (01) ==
PROVIDERS: Emergency Provider Nurse Practitioner Family; PCP Family Medicine
DX: J01.90 Acute sinusitis, unspecified (principal); R09.81 Nasal congestion
CPT/HCPCS: 96372; 99212; 99214; G0463; J1100

== ENCOUNTER 2024-03-18 10:58 | Outpatient (CLI) | payer OTHER, SELFPAY ==
[2024-03-18 12:50] LABS: HCG,Quantitative < 2 mIU/ml (0-5.42)
[2024-03-19 08:18] LABS: Progesterone 0.5 ng/mL (.)
== END 2024-03-18 23:59 | disposition home or self-care (01) ==
LOC: LAB 10:58
PROVIDERS: PCP Family Medicine; Visit Provider Obstetrics & Gynecology
DX: N92.6 Irregular menstruation, unspecified (principal)
CPT/HCPCS: 36415; 84144; 84702

== ENCOUNTER 2024-04-14 08:28 | Outpatient (CLI) | payer OTHER, SELFPAY ==
--- NOTE | 2024-04-14 08:29 | US_ITS ---
PROCEDURE: US TRANSVAGINAL CLINICAL INDICATION: secondary amenorrhea COMPARISON: US US PELVIC from 05/27/2023 FINDINGS: Transvaginal sonographic images of the pelvis were obtained. UTERUS: 7.7 cm x 4.8 cmx 3.9 cm anteverted with a combined endometrial thickness of 8mm. The endometrium appears trilaminar. A scar is visualized. LEFT OVARY: 3.0cmx1.4cmx1.7cm with a volume of 3.8ml. There are several small peripheral follicles in the left ovary. RIGHT OVARY: 3.6 cmx 2.1cmx2.2cm with a volume of 8.6ml. There are multiple small peripheral follicles in the right ovary giving it a polycystic appearance. Both ovaries are seen and appear polycystic. Doppler flow to both ovaries are seen. There is no fluid in the cul-de-sac. IMPRESSION: 1. Anteverted uterus normal in shape and size. The endometrium is normal, 8 mm and appears trilaminar. 2. Both ovaries are seen and appear polycystic. 3. No fluid in the cul-de-sac. Dictated by: Joey Mendoza MD 04/14/2024 11:10 Joey Mendoza MD in OV 04/14/2024 11:10
[2024-04-14 10:08] LABS: Thyroid Stimulating Hormone 1.22 uIU/mL (0.465-4.68)
[2024-04-15 08:33] LABS: Prolactin 10.4 ng/mL (4.8-33.4)
== END 2024-04-14 23:59 | disposition home or self-care (01) ==
LOC: RAD 08:29
PROVIDERS: PCP Family Medicine; Visit Provider Obstetrics & Gynecology
DX: N91.1 Secondary amenorrhea (principal)
CPT/HCPCS: 36415; 76830; 83036; 84146; 84443

== ENCOUNTER 2024-06-29 11:49 | Emergency (ER) | payer OTHER, SELFPAY ==
[2024-06-29 13:00] VITALS: BP 129/80; PULSE 115; RESP 19; TEMP 37.3; O2SAT 99; BMI 40.2
--- NOTE | 2024-06-29 13:26 | EXP.UTC ---
Discharge Plan Disposition Patient Disposition: Home, Self-Care Condition: Good Prescriptions Prescriptions: New azithromycin [Zithromax Z-Sadiq] 250 mg tablet See Rx Instructions .ROUTE .COMPLEX 5 Days Qty: 6 0RF Rx Instructions: For 250 mg dose pack: take 500 mg today (day 1), then 250 mg for 4 days (days 2-5) methylprednisolone [Medrol (Sadiq)] 4 mg tablets,dose pack See Rx Instructions .Route .COMPLEX 6 Days Qty: 21 0RF Rx Instructions: taper pack; No Action sertraline 25 mg tablet 25 mg PO DAILY Qty: 30 9RF Referrals Follow up/Referrals: Jonathan Walsh MD [Primary Care Provider] - See instructions Activity Restrictions/Add. Instructions Additional Instructions/Restrictions: *Monitor Temp, Over the counter Motrin or Tylenol as directed/as needed Tylenol every 4 hours and Motrin every 6 hours (as long as your family doctor has told you that you can take it) for fever or pain. and straight to ER if unable to lower temp less than 101.0 after medication given *Warm salt water gargles may help to soothe the throat *Throat Lozenges? *Warm fluids like tea with honey may help to soothe the throat? *Sleep elevated *Humidifier/Vaporizer Take medication as prescribed Your throat swab was sent for culture. Those results are typically sent to your primary care. Be sure to follow up in 2-3 days with your family doctor/primary care physician if no improvement so they can review those result and treat if necessary. If you don?t have a primary care doctor, I recommend you get one but in the mean time, you will have to return to a walk in clinic Follow up IMMEDIATELY for new or worsening symptoms or no Noticeable improvement over the next 48-72 hours. 911 for difficulty breathing or swallowing Clinical Impressions Clinical Impression: Pharyngitis Instructions Patient Instructions: Sore Throat, DI for Sinusitis Print Language Print Language: Mongolian Discharge ED Provider: Lakeisha Box [facility] HPI General Stated complaint: sinus congestion pressure, drainage Mode of Arrival: Ambulatory Source of Information: Patient Limitations: No Limitations Time Seen by Provider: 06/29/24 13:26 Description of Symptoms (Recalled from Triage Doc. by RN): PATIENT C/O SINUS CONGESTION, SORE THROAT, AND BODY ACHES SINCE YESTERDAY HEENT Symptoms (Recalled from RN notes): Yes Resp Symptoms (Recalled from RN notes): No Skin Symptoms (Recalled from RN notes): No MS Symptoms (Recalled from RN notes): No Functional Status (Recalled from RN notes): WNL History of Present Illness Provider Complaint: Patient states that child had flu a week or so ago and now she is having sinus congestion, pressure, body aches, sore throat and feeling achy all over so she came in to get checked Related Data Previous Rx's ?Medication ?Instructions ?Recorded sertraline 25 mg tablet 25 mg PO DAILY #30 tabs 11/23/23 azithromycin 250 mg tablet See Rx Instructions PO .COMPLEX 5 06/29/24 (Zithromax Z-Sadiq) days #6 tabs methylprednisolone 4 mg tablets in See Rx Instructions .Route 06/29/24 a dose pack (Medrol (Sadiq)) .COMPLEX 6 days #21 tabs Allergies Allergy/AdvReac Type Severity Reaction Status Date / Time No Known Allergies Allergy Verified 04/25/24 15:38 Worker's Comp Is this a Worker's Comp case?: [facility] Dis[facility]: The information contained in this section may have been updated after the patient was seen, as this information can be updated by other users. Medical History (Updated 06/29/24 @ 13:31 by Lakeisha Box APRN) Obesity (BMI 30-39.9) Oligomenorrhea PCOS (polycystic ovarian syndrome) Anxiety Acute blood loss anemia Fatty liver Tuberculosis Irregular periods/menstrual cycles Obesity (BMI 30.0-34.9) Surgical History S/P History of tonsillectomy History of cholecystectomy Family History Other Asthma Cancer Coronary artery disease Diabetes Heart attack Hyperlipidemia Hypertension Kidney disease Thyroid disorder Tuberculosis Social History Smoking Status: Never smoker alcohol intake: never substance use type: denies use current occupational status: employed Travel in the last 8 weeks: None household members: family and other housing: house 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 current occupational exposures/hazards: No caffeine: No ROS Obtained: Yes All systems reviewed & no additional complaints except as documented and Yes Systems reviewed as appropriate & no additional complaints except as documented Constitutional Constitutional: Reports system reviewed and no additional complaints, except as documented, Reports as per HPI, Reports body ache and Reports chills ENT Ears, Nose, Mouth, and Throat: Reports system reviewed and no additional complaints, except as documented, Reports as per HPI, Reports nasal congestion, Reports nasal discharge and Reports sore throat Cardiovascular Cardiovascular: Reports system reviewed and no additional complaints, except as documented and Reports as per HPI Respiratory Respiratory: Reports system reviewed and no additional complaints, except as documented, Reports as per HPI and Reports cough Gastrointestinal Gastrointestingal: Reports system reviewed and no additional complaints, except as documented and as per HPI Physical Exam General General appearance: alert and in no apparent distress ENT ENT exam: Present mucous membranes moist Expanded ENT Exam Nose exam: Present sinus tenderness Throat exam: Present other (Pharyngeal erythema noted with PND) Respiratory Respiratory exam: Present normal lung sounds bilaterally; Absent respiratory distress or wheezes Cardiovascular Cardiovascular exam: Present regular rate, normal rhythm and normal heart sounds Neurological Exam Neurological exam: Present alert, oriented X3 and normal gait Medical Decision Making Medical Records Screening: Per USPSTF and CDC recommendations, given the prevalence of disease in our region, it is our hospital?s policy to screen for HIV and viral Hepatitis for all patients aged 18 and over and those with ongoing risk factors. Braydon Inquiry Pt receiving controlled substance: No Braydon was queried for this patient: No Vital Signs: 06/29/24 13:00 Temperature 99.2 F Temperature Source Oral Pulse Rate [Left Brachial] 115 H Respiratory Rate 19 Blood Pressure [Left Arm] 129/80 Blood Pressure Mean [Left Arm] 96 Blood Pressure Source [Left Arm] Automatic Cuff Blood Pressure Position [Left Arm] Sitting 02 Sat by Pulse Oximetry 99 Oxygen Delivery Method Room Air Lab Data Lab results reviewed: Yes I reviewed the patient's lab results.
[2024-06-29 13:29] LABS: UTC Strep Screen (Rapid) Negative (Negative)
[2024-06-29 13:30] LABS: UTC Influenza A Antigen Negative (Negative); UTC Influenza B Antigen Negative (Negative)
[2024-06-29 13:32] VITALS: BP 129/80; PULSE 115; RESP 19; TEMP 37.3; O2SAT 99
== END 2024-06-29 13:34 | disposition home or self-care (01) ==
PROVIDERS: Emergency Provider Nurse Practitioner; PCP Family Medicine
DX: J02.9 Acute pharyngitis, unspecified (principal); R05.9 Cough, unspecified; R09.81 Nasal congestion; R68.83 Chills (without fever); M79.10 Myalgia, unspecified site
CPT/HCPCS: 87804; 87880; 99212; G0381

== ENCOUNTER 2024-10-05 13:56 | Outpatient (CLI) | payer OTHER, SELFPAY ==
[2024-10-05 15:27] LABS: Coronavirus 19, PCR Not Detected (NotDetected); Human Rhinovirus Not Detected (NotDetected); Influenza A, PCR Not Detected (NotDetected); Influenza B, PCR Not Detected (NotDetected); Respiratory Syncytial Virus Not Detected (NotDetected)
== END 2024-10-05 23:59 | disposition home or self-care (01) ==
LOC: LAB.DROPOF 10-06 11:02
PROVIDERS: PCP Nurse Practitioner; Visit Provider Nurse Practitioner
DX: J02.9 Acute pharyngitis, unspecified (principal); R50.9 Fever, unspecified; R51.9 Headache, unspecified; M79.10 Myalgia, unspecified site; Z20.828 Contact with and (suspected) exposure to other viral communicable diseases
CPT/HCPCS: 87631

== ENCOUNTER 2025-03-06 07:26 | Outpatient (CLI) | payer OTHER, SELFPAY ==
--- OUTSIDE RECORDS SUMMARY | 2024-12-28 11:15 | XMS_ITS ---
Author Organization [facility] Address 1210 [facility] [address] [phone] Care Team Providers Care Operating Room Manager Name Role Phone Leelee Walsh Primary Care Provider [phone] Lili Mosher Unavailable [phone] Allergies No Known Allergies REASON FOR VISIT [...] Status Risk Notes Problem Body mass index (BMI) of 40.1 to 44.9 in adult (Z68.41) Active confirmed Vital Signs Weight 220.4 lbs 12/28/2024 Blood pressure systolic 114 mm Hg 12/29/19 25 Blood pressure diastolic 72 mm Hg 025 Heart Rate 76 /min 12/28/2024 Height 61.25 in 12/28/2024 BMI 41.3 kg/m2 12/28/2024 Encounters Encounter Location Date Provider Diagnosis [facility] 1210 [facility] [address] [place] [phone] 12/28/2024 Lili Mosher Encounter for weight management [...] 1 month, Reason: Provider Name:Lili Edmonds y, 04/05/2025 10:00:00 AM, [address], [address], [place], [place], [phone], Progress Notes * ZAID LATHAMDOB:1995 (30 yo F)Acc No.[id number]:12/28/2024 Progress Notes Patient: ZAID ABEBE Provider: STU Chen :1995 A ge:29 Y S ex:Female Date:12/28/2024 Address:[facility] [phone] Pcp:Leelee Walsh Subjective: * Chief Complaints: * [...] * Images: Billing Information: * Visit Code: 44491 Office Visit, Est Pt., Level 3. * Procedure Codes: 1036F TOBACCO NON-USER. G8783 BP SCR PRFRM RCMDD DEFIND SCR INTVL. G8752 MOST RECENT SYSTOLIC BP < 140MM HG. G8754 MOST RECENT DIASTOLIC BP < 90MM HG. * Electronic signature of STU Valdivia on 03/06/2025 at 07:28 AM EDT Sign off status: Pending * Provider: STU Chen Date: 0 12/28/2024 Generated for Jasvir john/Damion/eTransmitting on: 0 03/06/2025 07:28 AM EDT History and Physical Notes * HPI (History of Present Illness) Category Sub-Category Detail Notes Category Not es Constitutional weight loss Examination Category Sub-Category Detail Notes Category Not es General Examination Heart: RSR Lungs: clear to auscultatio n General Appearance: NAD Chest: normal shape and exp ansion
--- OUTSIDE RECORDS SUMMARY | 2025-01-27 05:45 | XMS_ITS ---
Author Organization Adele Address 1210 [facility] [address] [place] [phone] Care Team Providers Care Exhibits Manager Name Role Phone Leelee Walsh Primary Care Provider Lili Mosher Unavailable [phone] Allergies No Known Allergies REASON FOR VISIT [...] Encounter Location Date Provider Diagnosis Adele 1210 [facility] [address] [place] [phone] 01/27/2025 Lili Mosher Encounter for weight management [...] [address], [address], [place], [place], [address], Progress Notes * MICHELLE LATHAMFRANCISCODOB:1995 (30 yo F)Acc No.[id number]:01/27/2025 Progress Notes Patient: ZAID ABEBE Provider: STU Chen :1995 A ge:29 Y S ex:Female Date:01/27/2025 Address:[address] [place] [phone] Pcp:Leelee Walsh Subjective: * Chief Complaints: * [...] * Images: Billing Information: * Visit Code: 38120 Office Visit, Est Pt., Level 3. * Procedure Codes: 1036F TOBACCO NON-USER. G8783 BP SCR PRFRM RCMDD DEFIND SCR INTVL. 3074F SYST BP LT 130 MM HG. 3078F DIAST BP < 80 MM HG. * Electronic signature of STU Valdivia on 03/06/2025 at 07:28 AM EDT Sign off status: Pending * Provider: STU Chen Date: 01/27/2025 Generated for Jasvir john/Damion/eTrob on: 03/06/2025 07:28 AM EDT History and Physical [...]
--- OUTSIDE RECORDS SUMMARY | 2025-03-01 05:00 | XMS_ITS ---
Author Organization Mayela Address 1210 [facility] [address] [place] [phone] Care Team Providers Care Videotape Editor Name Role Phone Leelee Walsh Primary Care Provider Lili Mosher [phone] Allergies No Known Allergies REASON FOR VISIT [...] 03/01/2025 Encounters Encounter Location Date Provider Diagnosis Mayela [address] [place] [phone] 03/01/2025 Lili Mosher Encounter for weight management [...] Edmonds y, 04/05/2025 10:00:00 AM, [address] [facility] [address], [address], [place], [place], [address], Progress Notes * SEDRICKMary ZAIDDOB:1995 (30 yo F)Acc No.[id number]:03/01/2025 Progress Notes Patient: ZAID ABEBE Provider: STU Chen :1995 A ge:30 Y S ex:Female Date:03/01/2025 Address:[address] [place], [place] [phone] Pcp:Leelee Walsh Subjective: * Chief Complaints: * [...] adult - Z68.41 Plan: * Treatment: * Follow Up: 1 month * Images: Billing Information: * Visit Code: 31767 Office Visit, Est Pt., Level 3. * Procedure Codes: * Electronic signature of STU Valdivia on 03/06/2025 at 07:28 AM EDT Sign off status: Pending * Provider: STU Chen Date: 0 03/01/2025 Generated for Jasvir john/Damion/eTransmitting on: 03/06/2025 07:28 AM EDT History and [...]
--- NOTE | 2025-03-06 07:27 | FL_ITS ---
FINAL REPORT CLINICAL HISTORY: OTHER DISEASES OF STOMACH DUODENUM fluoro 1:10 118.63 mGy DAP 1712.00 FINDINGS: AIR CONTRAST UPPER GI HISTORY: Preoperative examination for bariatric surgery, gastroesophageal reflux. TECHNIQUE: Patiient ingested thick and thin barium contrast. Effervescent crystals were also administered. Spot films were obtained. 43 images were saved. FINDINGS:The esophagus demonstrates no morphologic abnormalities. No mucosal defects are seen and motility appears normal. There is a small sliding-type hiatal hernia. The stomach is of normal size, shape and position. No gastric filling defects are seen. The duodenal bulb and sweep appear unremarkable. There is gastroesophageal reflux to the thoracic inlet. Fluoroscopy time: 1 minute 10 seconds. Radiation exposure in reference air Kerma: 118.63 mGy IMPRESSION: Small sliding-type hiatal hernia with gastroesophageal reflux. Otherwise, unremarkable upper GI series. The films were reviewed, interpreted, and dictated by Dr. Garcia Ro Transcribed by Eli Moncada PA-C Reviewed, Interpreted and Dictated by Jonathan Ro MD Transcribed by Eli Moncada PA-C Authenticated and . [facility]
--- OUTSIDE RECORDS SUMMARY | 2025-03-06 07:27 | XMS_ITS | Clinical Summary ---
Author Organization [facility] Address [address] [place] [address] Phone Care Team Providers Care Printing Equipment Mechanic Apprentice Name Role Phone Esequiel SUTTON, Donovan Ponce Conditions or Problems Problem Name Problem Code Onset Date Status Entry Date Provider Comment Standard Description Annotate Elevated Liver Function Tests (LFT) 319159037 (SNOMED CT) Active Donovan Iraheta MD. 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 VITAMINS 28-0.8 MG TABS Take 1 tablet by mouth once a day pnv b#95-issa us fumarate-fa [id number] Roque Meyerd Medications Administered No information available. Allergies, Adverse Reactions, Alerts No information available. Results Date Name Value Unit Range Flag Description Lab Report: QUANTIFERON TB G OLD PLUS CLIENT INCUBATED [id number]-GE-[id number] Positive Negative A GE use on ly - for LinkLogic import when terms are not otherwise specified External Other: Patient clif fuller update - Email Push, [facility] Infe ... PAT E-MAIL [email or web address] patient's e-mail address External Other: Patient port alina update - EmailStatus, [facility] Inf ... PATPORTALPIN Active This bipin l be used to establish a PIN number for patients to register in the Patient Portal. 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 Yes - Overweight Dietary management education, guidance, and counseling (procedure) SMOK STATUS Never smoker Toba accounts payable accountant smoking status Plan of Care Type Date Detail Pending order CMP Pending order New Oral Antibio tic Pending order Quantiferon Gold TB Assay Pending order T-SPOT Procedures Code Procedure Name Date Entry Date CPT-38249 CMP CPT-rick New Oral Antibiotic CPT-65133 Quantiferon Gold TB Assay 20 09/06/12 CPT-19282 T-SPOT Vital Signs Date Name Value Unit Description BMI (Body Mass Index) 37.60 kg/m2 Bod y Mass Index (Ratio) Body Temperature 96.9 [degF] temperat ure E&M BP Diastolic 74 mm[Hg] blood pressu re, diastolic BP Systolic 110 mm[Hg] blood pressur e, systolic Heart Rate 66 /min pulse rate Height 61 [in_us] height E&M Respiratory Rate 16 /min respirat ory rate E&M Weight Measured 199 [lb_av] weight E& M Weight Measured 199 [lb_av] weight E& M Immunizations No information available. Advance Directives Directive Description Start Date NO LIVING WILL ON FILE
--- OUTSIDE RECORDS SUMMARY | 2025-03-06 07:28 | XMS_ITS | Patient Health Record ---
Author Organization [facility] Address 1210 [facility] [address] [phone] Care Team Providers Care Machinist Outside Name Role Phone Leelee Walsh Primary Care Provider Shu Norwood Unavailable [phone] Lili Mosher Unavailable [phone] Allergies No Known Allergies Results Component Value [...] - 38 plat 166 100 - 400 Reason For Referral No Information Medications Medication SIG (Take, Route, Frequency, Duration) Notes Start Date End Date Status Zoloft 25 MG 1 tablet Orally Once a day; Duration: 30 day(s) Active Immunizations Vaccine Route Administration Date Status Comme nts xGardasil IM Intramuscular 01/03/2011 Administered xGardasil IM Intramuscular 03/05/2011 Administered xGardasil IM Intramuscular 07/07/2011 Administered Varivax IM Intramuscular 02/29/2016 Administered Varivax SC Subcutaneous 03/28/2016 Administered Tetanus Tdap-Adacel (over 7yrs) IM Intramuscular 02/20/2006 Administered Tetanus Tdap-Adacel (over 7yrs) IM Intramuscular 02/21/2016 Administered Tetanus Tdap-Adacel (over 7yrs) Unknown 03/09/2023 Administered ppd ID Intradermal 12/15/2012 Administered ppd ID Intradermal 02/21/2015 Administered Menactra IM Intramuscular 01/03/2011 Administered HEPB VACC PED/ADOL DOSE IM Unknown 09/29/1996 Administe red COVID 19 Pfizer Unknown 04/05/2021 Administered COVID 19 Pfizer Unknown 04/26/2021 Administered Problems Problem Type SNOMED Code ICD Code Onset Dates Problem Status W/U Status Risk Notes Problem Morbid obesity (142843426) Morbid obesity (E66.01) Active confirmed Problem Plantar wart of left foot (80666389123595 102) Plantar wart of left foot (B07.0) Active confirmed Problem Acute maxillary sinusitis (30557039) Acute recurrent maxillary sinusitis (J01.01) Active confirmed Problem Obese class II (41455703548490 5) BMI 35.0-35.9,adult (Z68.35) Active confirmed Problem Migraine without aura, not refractory (142807986) Migraine without aura and without status migrainosus, not intractable (G43.009) Active confirmed Problem Obese class II (87240327016493 5) BMI 36.0-36.9,adult (Z68.36) Active confirmed Problem New daily persistent headache (19748313889147 5) New daily persistent headache (G44.52) Active confirmed Problem Dysphagia (22966920) Dysphagia, unspecified type (R13.10) Active confirmed Problem Atopic dermatitis (72142676) Atopic dermatitis, unspecified type (L20.9) Active confirmed Problem Body mass index 40+ - severely obese (747046190) Body mass index (BMI) of 40.1 to 44.9 in adult (Z68.41) Active confirmed Problem Missed period (04025740) Missed period (N92.6) Active confirmed Vital Signs Heart Rate 83 /min 03/01/2025 Blood pressure diastolic 72 mm Hg 03/01/2025 Height 61.25 in 03/01/2025 Blood pressure systolic 130 mm Hg 03/01/2025 Weight 221.4 lbs 03/01/2025 BMI 41.49 kg/m2 03/01/2025 Encounters Encounter Location Date Provider Diagnosis Adele 1210 [facility] [address] [place] [phone] 06/20/2024 Leelee Walsh Dyshidrotic eczema L30.1 [facility] 1210 [facility] [address] [place] [phone] 09/12/2024 Shu Norwood URI (upper respirato ry infection) J06.9 [facility] 1210 [facility] [address] [place] [id number] 12/28/2024 Lili Mosher Encounter for weight management Z76.89 and Body mass index (BMI) of 40.1 to 44.9 in adult Z68.41 [facility] 1210 [facility] [address] [place] [phone] 01/27/2025 Lili Mosher Encounter for weight management Z76.89 and Body mass index (BMI) of 40.1 to 44.9 in adult Z68.41 [facility] 1210 [facility] [address] [place] [phone] 03/01/2025 Lili Mosher Encounter for weight management Z76.89 and Body mass index (BMI) of 40.1 to 44.9 in adult Z68.41 Assessments Encounter Date Diagnosis (ICD Code) Assessment Notes Treatment Notes Treatment Clinical Notes Section Notes 12/28/2024 Body mass index (BMI) of 40.1 to 44.9 in adult (ICD-10 - Z68.41) 12/28/2024 Encounter for weight management (ICD-10 - Z76.89) Currently doing a low carb diet, weakness is sweets, strength is being around others who have had weight loss surgery Currently doing exercise walking 30 minutes/day 01/27/2025 Encounter for weight management (ICD-10 - Z76.89) Currently doing a low carb diet, weakness is sweets, strength is being around others who have had weight loss surgery Currently doing exercise walking 30 minutes/day 03/01/2025 Encounter for weight management (ICD-10 - Z76.89) Currently doing a low carb diet, weakness is sweets, strength is being around others who have had weight loss surgery Currently doing exercise walking 30 minutes/day 06/20/2024 Dyshidrotic eczema (ICD-10 - L30.1) occlusive dressings, patient instructed 09/12/2024 URI (upper respiratory infection) (ICD-10 - J06.9) OTC decongestant and/or cough medicine of choice, fluids, rest, supportive measures for fever/symptom relief 03/01/2025 Body mass index (BMI) of 40.1 to 44.9 in adult (ICD-10 - Z68.41) 01/27/2025 Body mass index (BMI) of 40.1 to 44.9 in adult (ICD-10 - Z68.41) Plan Of Treatment Next Appt Details Provider Name:Lili Edmonds kayleigh, 04/05/2025 10:00:00 AM, [address], [place], [place], [phone], Insurance Providers Payer Name Payer Address Payer Phone Subscriber Number Group Number Insured Name Patient Relationship to Insured Coverage Start Date Coverage End Date [facility] [address] [place] [phone] [id number] ZAID [place] Self - patient is the insured Medical (General) History Medical History History ICD Code [facility] 01/2017 cellulitis right thigh COVID 19 infection, Jul 2020 Surgical History Surgery Date(Month/Year) tonsilectomy 08/21/15 cholecystectomy Jul 2018 Hospitalization History Reason Date(Month/Year) [facility]-left ankle pain 10/03
--- OUTSIDE RECORDS SUMMARY | 2025-03-06 07:29 | XMS_ITS | Clinical Summary ---
[facility] Organization [facility] Address [address] [place] [address] Care Team Providers Care Clipper Operator Name Role Phone Manjinder Walsh MD Primary Care Provider [phone] Social History Tobacco Use Types Packs/Day Years Used Date Smoking Tobacco: Never Assessed Abuse Screen Answer Date Recorded Unsafe at Home or Work/School Not on file Feels Threatened by Someone? Not on file Does Anyone Keep You from Co ntacting Others or Doint Things Outside the Home? Not on file 05/01/2023 Physical Sign of Abuse Present Not on file 1 Housing Stability Answer Date Recorded Current Living Arrangements Not on file 04/19 Potentially Unsafe Housing Conditions Not on lazarus e 05/01/2023 Family and Community Support Answer Julio Cesar e Recorded Help with Day-to-Day Activities Not on file 05/01/2023 Lonely or Isolated Not on file 05/01/2023 Employment Answer Date Recorded Do you want help finding or keeping work or a sussy b? Not on file 05/01/2023 Disabilities Answer Date Recorded Concentrating, Remembering, or Making Decisions Difficulty Not on file 05/01/2023 Doing Errands Independently Difficulty Not on fi le 05/01/2023 Education Answer Date Recorded Help with school or training? Not on file Preferred Language Not on file 05/01/2023 Comments Unknown Sex and Gender Information Value Date Recorded Sex Assigned at Not on file Legal Sex Female 10:32 AM EST Gender Identity Not on file Sexual Orientation Not on file Plan of Treatment Health Maintenance Due Date Last Done Comments ANNUAL PHYSICAL 1995 Annual Gynecologic Pelvic an d Breast Exam 1995 HEPATITIS C SCREENING 1995 TDAP/TD VACCINES (1 - Tdap) 2014 COVID-19 Vaccine (3 - 2023-2 5 season) 2024 04/26/2021, 04/05/2021 INFLUENZA VACCINE 04/19/2025 Pneumococcal Vaccine 0-49 Aged Out No longer eligible based on patient's age to complete this topic Insurance [employer] [place] [id number] Care Teams Clipper Operator Relationship Specialty Start Date End Date Manjinder Walsh MD [address] [place] [facility] [address] [place] [address] PCP - General Family Medicine 05/31/21
--- OUTSIDE RECORDS SUMMARY | 2025-03-06 07:29 | XMS_ITS | Clinical Summary ---
Author Organization [facility] Address [address] [place] [address] Care Team Providers Care Gluing Machine Feeder Name Role Phone Manjinder Walsh MD Primary Care Provider [phone] Medications rifAMPin (Rifadin) 300 MG capsule Take 600 mg by mouth 1 (one) time each day. 07/24/2021 Active Social History Tobacco Use Types Packs/Day Years Used Date Smoking Tobacco: Never Assessed Comments Unknown Sex and Gender Information Value Date Recorded Sex Assigned at Not on file Legal Sex Female 6:04 PM EDT Gender Identity Not on file Sexual Orientation Not on file Last Filed Vital Signs Vital Sign Reading Time Taken Comments Blood Pressure 119/86 04/14/2022 1:42 PM EDT Pulse 87 04/14/2022 1:42 PM EDT Temperature 36.6 C (97.9 F) 04/14/2022 1:42 PM EDT Respiratory Rate - - Oxygen Saturation 100% 04/14/2022 1:42 PM EDT Inhaled Oxygen Concentration - - Weight 92.8 kg (204 lb 9.6 oz) 04/14/2022 1:42 P M EDT Height 154.9 cm (5' 1 ) 04/14/2022 1:42 PM EDT Body Mass Index 38.66 04/14/2022 1:42 PM EDT Plan of Treatment Health Maintenance Due Date Last Done Comments [facility]-Depression Screening 1995 [facility]-HIV Screening 1995 [facility]-Hepatitis C Screening 1995 [facility]-/Child/Adol SDOH Screenings 1995 [facility]-Varicella Vaccines (1 of 2 - 13+ 2-dose series) 02/26/2008 [facility]- SDOH Screenings 2013 [facility]-Adult SDOH Screenings 2013 [facility]-DTaP,Tdap,and Td Vaccine s (1 - Tdap) 2014 [facility]-Hepatitis B Vaccines (1 of 3 - 19+ 3-dose series) 2014 [facility]-Pap Smear 02/26/2016 HPV Vaccines (1 - 3-dose SCD M series) 2022 [id number] Vaccine (3 - season) 2024 04/26/2021, 04/05/2021 [facility]-Cervical Cancer Screening 2025 [facility]-HPV/Cotest 2025 [facility]-Influenza Vaccine (#1) 2025 [facility]-Zoster Vaccines (1 of 2) 2045 [facility]-Obesity Intervention Completed 04/14/2022 [facility]-HIB Vaccines Aged Out No longer e ligible based on patient's age to complete this topic [facility]-Hepatitis A Vaccines Aged Out No longer eligible based on patient's age to complete this topic [facility]-IPV Vaccines Aged Out No longer e ligible based on patient's age to complete this topic [facility]-Pneumococcal Vaccine: Pediatrics (0 to 5 Years) and At-Risk Patients (6 to 49 Years) Aged Out No longer eligible b ased on patient's age to complete this topic [facility]-Rotavirus Vaccines Aged Out No lo nger eligible based on patient's age to complete this topic Insurance [facility] [place] Care Teams Gluing Machine Feeder Relationship Specialty Start Date End Date Manjinder Walsh MD [address] [place] [id number] PCP - General 11/30/20
== END 2025-03-06 23:59 | disposition home or self-care (01) ==
LOC: RAD 07:26
PROVIDERS: PCP Family Medicine; Visit Provider Physician Assistant
DX: K44.9 Diaphragmatic hernia without obstruction or gangrene (principal); K21.9 Gastro-esophageal reflux disease without esophagitis; K31.89 Other diseases of stomach and duodenum
CPT/HCPCS: 74246

== ENCOUNTER 2025-06-25 11:50 | Emergency (ER) | payer OTHER, SELFPAY ==
--- OUTSIDE RECORDS SUMMARY | 2024-06-20 08:30 | XMS_ITS ---
Author Organization [facility] Address [address] [facility] [address] [phone] Care Team Providers Care Senior Materials Planner Name Role Phone Leelee Walsh Primary Care [...] Encounter Location Date Provider Diagnosis [facility] [address] [facility] [address] [place] [phone] 06/20/2024 Leelee Walsh Dyshidrotic eczema L30.1 Assessments [...] [address], [address], [place], [place], [phone], Progress Notes * Kandace GALLEGOSDOB:1995 (30 yo F)Acc No.[id number]:06/20/2024 Progress Notes Patient: Kandace ABEBE Provider: Leelee Walsh M.D. :1995 A ge:29 Y S ex:Female Date:06/20/2024 [facility] [id number] Subjective: * Chief Complaints: * 1 . [...] * Images: Billing Information: * Visit Code: 21679 Office Visit, Est Pt., Level 3. * Procedure Codes: * Electronic signature of Leelee Walsh MD on 06/25/2025 at 12:46 PM EST Sign off status: Pending * Provider: Leelee Walsh M.D. Date: 08/21/2023 Generated for Jasvir john/Damion/Antonino on: 08/26/2024 12:46 PM EST History and Physical Notes * HPI (History of Present Illness) Category Sub-Category Detail Notes Category Not es Dermatology rash Examination Category Sub-Category Detail Notes Category Not es Dermatology Extremities: hands with inter digital eczematous skin changes, erythema, not excoriated.
--- OUTSIDE RECORDS SUMMARY | 2024-09-12 04:45 | XMS_ITS ---
Author Organization [facility] Address [address] [id number] Care Team Providers Care Mechanical Process Engineer Name Role Phone Leelee Walsh Primary Care Provider Shu Norwood Unavailable [phone] Allergies No Known Allergies Results Component Value [...] Encounters Encounter Location Date Provider Diagnosis [facility] [address] [place] [id number] 09/12/2024 Shu Norwood URI (upper respirato ry [...] Provider Name:Lili victor, 07/26/2025 09:30:00 AM, 1210 [facility] 36 [facility], [address], [place], [id number], Progress Notes * Kandace GALLEGOSDOB:1995 (30 yo F)Acc No.[id number]:09/12/2024 Progress Notes Patient: Kandace ABEBE Provider: GAGAN Ross :1995 A ge:29 Y S ex:Female Date:09/12/2024 Address:[address] [place], [place] [address] [id number] Pcp:Leelee Walsh Subjective: * Chief Complaints: * [...] * Procedure Codes: 9 4760 [place], [address] CAPILLARY BLOOD DRAW, 04671 CBC WITH AUTO DIFF * Follow Up: p rn * Images: Billing Information: * Visit Code: 09393 Office Visit, Est Pt., Level 3. * Procedure Codes: [address] [place]. [address] CAPILLARY BLOOD DRAW. 36244 CBC WITH AUTO DIFF. * Electronic signature of Shruthi Norwood APRN on 06/25/2025 at 12:46 PM EST Sign off status: Pending * Provider: GAGAN Ross Date: 0 09/12/2024 Generated for Jasvir john/Damion/eTransmitting on: 1 08/26/2024 12:46 PM EST History and Physical [...]
--- OUTSIDE RECORDS SUMMARY | 2024-12-28 10:15 | XMS_ITS ---
Author Organization [facility] Address 1210 [facility] [address] [phone] Care Team Providers Care Branding Machine Operator Name Role Phone Leelee Walsh Primary Care Provider [phone] Lili Mosher Unavailable [phone] Allergies No Known Allergies REASON FOR VISIT weight consult Medications Medication SIG (Take, Route, Frequency, Duration) Notes Start Date End Date Status Zoloft 25 MG 1 tablet Orally Once a day; Duration: 30 day(s) Active Mometasone Furoate 0.1 % 1 application E xternally Once a day 06/20/2024 Active Problems Problem Type SNOMED Code ICD Code Onset Dates Problem Status W/U Status Risk Notes Problem Body mass index 40+ - severely obese (824228100) Body mass index (BMI) of 40.1 to 44.9 in adult (Z68.41) Active confirmed Vital Signs Blood pressure systolic 114 mm Hg 12/29/19 25 Blood pressure diastolic 72 mm Hg 025 Heart Rate 76 /min 12/28/2024 Height 61.25 in 12/28/2024 Weight 220.4 lbs 12/28/2024 BMI 41.3 kg/m2 12/28/2024 Encounters Encounter Location Date Provider Diagnosis [facility] [address] [id number] 12/28/2024 Lili Mosher Encounter for weight management Z76.89 and Body mass index (BMI) of 40.1 to 44.9 in adult Z68.41 Assessments Encounter Date Diagnosis (ICD Code) Assessment Notes Treatment Notes Treatment Clinical Notes Section Notes 12/28/2024 Encounter for weight management (ICD-10 - Z76.89) Currently doing a low carb diet, weakness is sweets, strength is being around others who have had weight loss surgery Currently doing exercise walking 30 minutes/day 12/28/2024 Body mass index (BMI) of 40.1 to 44.9 in adult (ICD-10 - Z68.41) Plan Of Treatment Treatment Notes Assessment Notes Encounter for weight management Currently doing a low carb diet, weakness is sweets, strength is being around others who have had weight loss surgery Currently doing exercise walking 30 minutes/day Next Appt Details Follow Up: 1 month, Reason: Provider Name:Lili Edmonds y, 07/26/2025 09:30:00 AM, [address], [address], [place], [place], [phone], Progress Notes * Kandace GALLEGOSDOB:1995 (30 yo F)Acc No.[id number]:12/28/2024 Progress Notes Patient: Kandace ABEBE Provider: STU Chen :1995 A ge:29 Y S ex:Female Date:12/28/2024 Address:[address] [place] [id number] Pcp:Leelee Walsh Subjective: * Chief Complaints: * 1 . Weight consult. * HPI: C onstitutional: The pt is here today to discuss weight loss. Pt states she is in the precess of getting scheduled for Bariatric surgery. Pt states she has been trying the low carb diet and exercise. 29 year old female presents with c/o weight loss. * ROS: D ERMATOLOGY: no R sri. n o H dinh. G ASTROENTEROLOGY: no N ausea. n o [...] 1 application Externally Once a day , Discontinued dexAMETHasone 4 MG Tablet 1 tablet Orally every 12 hrs , Medication List reviewed and reconciled with the patient * Allergies: N .K.D.A. Objective: * Vitals: W t: 220.4, Temp: 98.3, BP: 114/72, HR: 76, Nurse: FRANCOIS, Ht: 61.25, BMI:41.3. * Examination: G eneral Examination: General Appearance: N AD. C hest: n ormal shape and expansion. H eart: R SR. L ungs: c lear to auscultation. Assessment: * Assessment: 1. E ncounter for weight management - Z76.89 (Primary) 2 . B inés mass index (BMI) of 40.1 to 44.9 in adult - Z68.41 Plan: * Treatment: * Procedure Codes: 1 036F TOBACCO NON-USER, G8783 BP SCR PRFRM RCMDD DEFIND SCR INTVL, G8752 MOST RECENT SYSTOLIC BP < 140MM HG, G8754 MOST RECENT DIASTOLIC BP < 90MM HG * Follow Up: 1 month * Images: Billing Information: * Visit Code: 11980 Office Visit, Est Pt., Level 3. * Procedure Codes: 1036F TOBACCO NON-USER. G8783 BP SCR PRFRM RCMDD DEFIND SCR INTVL. G8752 MOST RECENT SYSTOLIC BP < 140MM HG. G8754 MOST RECENT DIASTOLIC BP < 90MM HG. * Electronic signature of STU Valdivia on 06/25/2025 at 12:46 PM EST Sign off status: Pending * Provider: STU Chen Date: 0 12/28/2024 Generated for Jasvir john/Damion/Antonino on: 1 08/26/2024 12:46 PM EST History and Physical Notes * HPI (History of Present Illness) Category Sub-Category Detail Notes Category Not es Constitutional weight loss Examination Category Sub-Category Detail Notes Category Not es General Examination Heart: RSR Lungs: clear to auscultatio n General Appearance: NAD Chest: normal shape and exp ansion
--- OUTSIDE RECORDS SUMMARY | 2025-01-27 04:45 | XMS_ITS ---
Author Organization Adele Address 1210 [facility] [address] [place] [id number] Care Team Providers Care Carnallite Plant Operator Name Role Phone Leelee Walsh Primary Care Provider Lili Mosher Unavailable [phone] Allergies No Known Allergies REASON FOR VISIT 1 month Medications Medication SIG (Take, Route, Frequency, Duration) Notes Start Date End Date Status Mometasone Furoate 0.1 % 1 application E xternally Once a day 06/20/2024 Active Zoloft 25 MG 1 tablet Orally Once a day; Duration: 30 day(s) Active Vital Signs Blood pressure systolic 114 mm Hg 01/28/20 25 Blood pressure diastolic 70 mm Hg 025 Heart Rate 50 /min 01/27/2025 Height 61.25 in 01/27/2025 Weight 222.2 lbs 01/27/2025 BMI 41.64 kg/m2 01/27/2025 Encounters Encounter Location Date Provider Diagnosis Adele 1210 [facility] [address] [place] [phone] 01/27/2025 Lili Mosher Encounter for weight management [...] [address], [place], [place], [address], Progress Notes * Monica GALLEGOScatarinoDOB:1995 (30 yo F)Acc No.[id number]:01/27/2025 Progress Notes Patient: Kandace ABEBE Provider: STU Chen :1995 A ge:29 Y S ex:Female Date:01/27/2025 Address:[address] [place] [phone] Pcp:Leelee Walsh Subjective: * Chief Complaints: * [...] * Images: Billing Information: * Visit Code: 60834 Office Visit, Est Pt., Level 3. * Procedure Codes: 1036F TOBACCO NON-USER. G8783 BP SCR PRFRM RCMDD DEFIND SCR INTVL. 3074F SYST BP LT 130 MM HG. 3078F DIAST BP < 80 MM HG. * Electronic signature of STU Valdivia on 06/25/2025 at 12:46 PM EST Sign off status: Pending * Provider: STU Chen Date: 0 01/27/2025 Generated for Jasvir john/Damion/Antonino on: 1 08/26/2024 [...]
--- OUTSIDE RECORDS SUMMARY | 2025-03-01 04:00 | XMS_ITS ---
Author Organization Adele Address 1210 [facility] [address] [place] [phone] Care Team Providers Care Senior Human Resources Representative Name Role Phone Leelee Walsh Primary Care Provider Lili Mosher [phone] Allergies No Known Allergies REASON FOR VISIT 1 month Medications Medication SIG (Take, Route, Frequency, Duration) Notes Start Date End Date Status Zoloft 25 MG 1 tablet Orally Once a day; Duration: 30 day(s) Active Vital Signs Blood pressure systolic 130 mm Hg 03/01/20 25 Blood pressure diastolic 72 mm Hg 025 Heart Rate 83 /min 03/01/2025 Height 61.25 in 03/01/2025 Weight 221.4 lbs 03/01/2025 BMI 41.49 kg/m2 03/01/2025 Encounters Encounter Location Date Provider Diagnosis Adele [address] [place] [phone] 03/01/2025 Lili Mosher Encounter for weight management Z76.89 and Body mass index (BMI) of 40.1 to 44.9 in adult Z68.41 Assessments Encounter Date Diagnosis (ICD Code) Assessment Notes Treatment Notes Treatment Clinical Notes Section Notes 03/01/2025 Encounter for weight management (ICD-10 - Z76.89) Currently doing a low carb diet, weakness is sweets, strength is being around others who have had weight loss surgery Currently doing exercise walking 30 minutes/day 03/01/2025 Body mass index (BMI) of 40.1 to 44.9 in adult (ICD-10 - Z68.41) Plan Of Treatment Treatment Notes Assessment Notes Encounter for weight management Currently doing a low carb diet, weakness is sweets, strength is being around others who have had weight loss surgery Currently doing exercise walking 30 minutes/day Next Appt Details Follow Up: 1 month, Reason: Provider Name:Lili victor, 07/26/2025 09:30:00 AM, [address] [facility] [address], [address], [place], [place], [address], Progress Notes * SEDRICKMary KandaceDOB:1995 (30 yo F)Acc No.[id number]:03/01/2025 Progress Notes Patient: Kandace ABEBE Provider: STU Chen :1995 A ge:30 Y S ex:Female Date:03/01/2025 Address:[address] [place], [place] [phone] Pcp:Leelee Walsh Subjective: * Chief Complaints: * 1 . 1 month. * HPI: C onstitutional: 30 year old female presents with c/o weight loss P t here for a 1-month checkup on weight. Pt has lost a little bit of weight. Pt states no new concerns today.? * ROS: D ERMATOLOGY: no R sri. [...] tablet Orally Once a day , Discontinued Mometasone Furoate 0.1 % Ointment 1 application Externally Once a day , Medication List reviewed and reconciled with the patient * Allergies: N .K.D.A. Objective: * Vitals: W t: 221.4, Temp: 97.8, BP: 130/72, HR: 83, Nurse: pe, Ht: 61.25, BMI:41.49. * Examination: G eneral Examination: General Appearance: N AD. C hest: n ormal shape and expansion. H eart: R SR. L ungs: c lear to auscultation. Assessment: * Assessment: 1. E ncounter for weight management - Z76.89 (Primary) 2 . B inés mass index (BMI) of 40.1 to 44.9 in adult - Z68.41 Plan: * Treatment: * Procedure Codes: 1 036F TOBACCO NON-USER, 3075F SYST BP GE 130 - 139MM HG, 3078F DIAST BP < 80 MM HG * Follow Up: 1 month * Images: Billing Information: * Visit Code: 60930 Office Visit, Est Pt., Level 3. * Procedure Codes: 1036F TOBACCO NON-USER. 3075F SYST BP GE 130 - 139MM HG. 3078F DIAST BP < 80 MM HG. * Electronic signature of STU Valdivia on 06/25/2025 at 12:45 PM EST Sign off status: Pending * Provider: STU Chen Date: 0 03/01/2025 Generated for Jasvir john/Damion/Silvianosmitting on: 1 08/26/2024 12:45 PM EST History and Physical Notes * HPI (History of Present Illness) Category Sub-Category Detail Notes Category Not es Constitutional weight loss Pt here for a 1- month checkup on weight. Pt has lost a little bit of weight. Pt states no new concerns today Examination Category Sub-Category Detail Notes Category Not es General Examination Heart: RSR Lungs: clear to auscultatio n General Appearance: NAD Chest: normal shape and exp ansion
--- OUTSIDE RECORDS SUMMARY | 2025-04-05 05:00 | XMS_ITS ---
Author Organization [facility] Address [address] [facility] [address] [id number] Care Team Providers Care Motion And Time Study Teacher Name Role Phone Leelee Walsh Primary Care Provider Lili Mosher Unavailable [phone] Allergies No Known Allergies REASON FOR VISIT 1 month Medications Medication SIG (Take, Route, Frequency, Duration) Notes Start Date End Date Status Triamcinolone Acetonide 0.1 % 1 application Externally Twice a day 04/05/2025 Active Zoloft 25 MG 1 tablet Orally Once a day; Duration: 30 day(s) Active Vital Signs Blood pressure systolic 122 mm Hg 04/05/20 25 Blood pressure diastolic 60 mm Hg 025 Heart Rate 84 /min 04/05/2025 Height 61.25 in 04/05/2025 Weight 219.6 lbs 04/05/2025 BMI 41.15 kg/m2 04/05/2025 Encounters Encounter Location Date Provider Diagnosis Adele [address] [facility] [address] [place] [id number] 04/05/2025 Lili Mosher Encounter for weight management Z76.89 ; Body mass index (BMI) of 40.1 to 44.9 in adult Z68.41 and Chronic eczema L30.9 Assessments Encounter Date Diagnosis (ICD Code) Assessment Notes Treatment Notes Treatment Clinical Notes Section Notes 04/05/2025 Encounter for weight management (ICD-10 - Z76.89) Currently doing a low carb diet, weakness is sweets, strength is being around others who have had weight loss surgery Currently doing exercise walking 30 minutes/day 04/05/2025 Body mass index (BMI) of 40.1 to 44.9 in adult (ICD-10 - Z68.41) 04/05/2025 Chronic eczema (ICD-10 - L30.9) Plan Of Treatment Medication Medication Name Sig Start Date Stop Date Notes Triamcinolone Acetonide 0.1 % 1 applicat ion Externally Twice a day 04/05/2025 Treatment Notes Assessment Notes Encounter for weight management Currently doing a low carb diet, weakness is sweets, strength is being around others who have had weight loss surgery Currently doing exercise walking 30 minutes/day Next Appt Details Follow Up: 1 month, Reason: Provider Name:Lili victor, 07/26/2025 09:30:00 AM, [address] [place] [facility] [address], [place], [place], [id number], Progress Notes * Kandace GALLEGOSDOB:1995 (30 yo F)Acc No.[id number]:04/05/2025 Progress Notes Patient: Kandace ABEBE Provider: STU Chen :1995 A ge:30 Y S ex:Female Date:04/05/2025 Address:[facility] [address] [place], [place] Pcp:Leelee Walsh Subjective: * Chief Complaints: * 1 . 1 month. * HPI: P sychology: 30 year old female presents with c/o weight loss P t here for weight loss, pt states she has been able to successfully lose some weight. Pt states she does not want to take any medication . * ROS: D ERMATOLOGY: no R sri. n o H dinh. G ASTROENTEROLOGY: no N ausea. n o V omiting. n o D iarrhea.? U ROLOGY: no D ifficulty urinating. n o B lood in urine. * Medical History: U 01/2017 cellulitis right thigh, COVID 19 infection, [...] 1 tablet Orally Once a day , Medication List reviewed and reconciled with the patient * Allergies: N .K.D.A. Objective: * Vitals: W t: 219.6, Temp: 97.9, BP: 122/60, HR: 84, Nurse: ramon, Ht: 61.25, BMI:41.15. * Examination: G eneral Examination: General Appearance: N AD. C hest: n ormal shape and expansion. H eart: R SR. L ungs: c lear to auscultation. S kin: e rythematous xerotic patches on the arms. Assessment: * Assessment: 1. E ncounter for weight management - Z76.89 (Primary) 2 . B inés mass index (BMI) of 40.1 to 44.9 in adult - Z68.41 3 . C hronic eczema - L30.9 ? Plan: * Treatment: 2. C hronic eczema Start Triamcinolone Acetonide Ointment, 0.1 %, 1 application, Externally, Twice a day, 454 grams, Refills 1. * Procedure Codes: 1 036F TOBACCO NON-USER, 3074F SYST BP LT 130 MM HG, 3078F DIAST BP < 80 MM HG * Follow Up: 1 month * Images: Billing Information: * Visit Code: 96231 Office Visit, Est Pt., Level 3. * Procedure Codes: 1036F TOBACCO NON-USER. 3074F SYST BP LT 130 MM HG. 3078F DIAST BP < 80 MM HG. * Electronic signature of STU Valdivia on 06/25/2025 at 12:46 PM EST Sign off status: Pending * Provider: STU Chen Date: 0 04/05/2025 Generated for Jasvir john/Damion/eTransmitting on: 1 08/26/2024 12:46 PM EST History and Physical Notes * HPI (History of Present Illness) Category Sub-Category Detail Notes Category Not es Psychology weight loss Pt here for weig ht loss, pt states she has been able to successfully lose some weight. Pt states she does not want to take any medication Examination Category Sub-Category Detail Notes Category Not es General Examination Heart: RSR Lungs: clear to auscultatio n General Appearance: NAD Skin: erythematous xerotic patches on the arms Chest: normal shape and exp ansion
--- OUTSIDE RECORDS SUMMARY | 2025-05-10 04:15 | XMS_ITS ---
Author Organization [facility] Address [address] [facility] [address] [phone] Care Team Providers Care Tire Layer Name Role Phone Leelee Walsh Primary Care Provider Lili Mosher Unavailable [phone] Allergies No Known Allergies REASON FOR VISIT 1 month Medications Medication SIG (Take, Route, Frequency, Duration) Notes Start Date End Date Status Zoloft 25 MG 1 tablet Orally Once a day; Duration: 30 day(s) Active Triamcinolone Acetonide 0.1 % 1 application Externally Twice a day 04/05/2025 Active Vital Signs Blood pressure systolic 124 mm Hg 05/10/20 25 Blood pressure diastolic 70 mm Hg 025 Heart Rate 89 /min 05/10/2025 Height 61.25 in 05/10/2025 Weight 219 lbs 05/10/2025 BMI 41.04 kg/m2 05/10/2025 Encounters Encounter Location Date Provider Diagnosis [facility]le [facility] [address] [place] [phone] 05/10/2025 Lili Mosher Body mass index (BMI ) of 40.1 to 44.9 in adult Z68.41 and Encounter for weight management Z76.89 Assessments Encounter Date Diagnosis (ICD Code) Assessment Notes Treatment Notes Treatment Clinical Notes Section Notes 05/10/2025 Body mass index (BMI) of 40.1 to 44.9 in adult (ICD-10 - Z68.41) 05/10/2025 Encounter for weight management (ICD-10 - Z76.89) Currently doing a low carb diet, weakness is sweets, strength is being around others who have had weight loss surgery Currently doing exercise walking 30 minutes/day Plan Of Treatment Treatment Notes Assessment Notes Encounter for weight management Currently doing a low carb diet, weakness is sweets, strength is being around others who have had weight loss surgery Currently doing exercise walking 30 minutes/day Next Appt Details Follow Up: 1 month, Reason: Provider Name:Lili victor, 07/26/2025 09:30:00 AM, [address], [place], [place], [phone], Progress Notes * Monica GALLEGOScatarinoDOB:1995 (30 yo F)Acc No.[id number]:05/10/2025 Progress Notes Patient: Kandace ABEBE Provider: STU Chen :1995 A ge:30 Y S ex:Female Date:05/10/2025 Address:[address] [place] [id number] Pcp:Leelee Walsh Subjective: * Chief Complaints: * 1 . 1 month. * HPI: P sychology: 30 year old female presents with c/o weight loss P t here for 1 month checkup on her weight. Pt states she has lost weight. * ROS: D ERMATOLOGY: no R sri. [...] tablet Orally Once a day , Taking Triamcinolone Acetonide 0.1 % Ointment 1 application Externally Twice a day , Medication List reviewed and reconciled with the patient * Allergies: N .K.D.A. Objective: * Vitals: W t: 219, Temp: 98.6, BP: 124/70, HR: 89, Nurse: pe, Ht: 61.25, BMI:41.04. * Examination: G eneral Examination: General Appearance: [...] * Images: Billing Information: * Visit Code: 41258 Office Visit, Est Pt., Level 3. * Procedure Codes: 1036F TOBACCO NON-USER. 3074F SYST BP LT 130 MM HG. 3078F DIAST BP < 80 MM HG. * Electronic signature of STU Valdivia on 06/25/2025 at 12:45 PM EST Sign off status: Pending * Provider: STU Chen Date: 1 Generated for Jasvir john/Damion/Evanitting on: 08/26/2024 12:45 PM EST History and Physical Notes * HPI (History of Present Illness) Category Sub-Category Detail Notes Category Not es Psychology weight loss Pt here for 1 mo nth checkup on her weight. Pt states she has lost weight Examination Category Sub-Category Detail Notes Category Not es General Examination Heart: RSR Lungs: clear to auscultatio n General Appearance: NAD Chest: normal shape and exp ansion
--- OUTSIDE RECORDS SUMMARY | 2025-06-21 04:00 | XMS_ITS ---
Author Organization [facility] Address 1210 [facility] [address] [place] [id number] Care Team Providers Care Microbiology Quality Control Technician Name Role Phone Leelee Walsh Primary Care Provider Lili Mosher Unavailable [phone] Allergies No Known Allergies REASON FOR VISIT [...] Encounters Encounter Location Date Provider Diagnosis [facility] [address] [place] [phone] 06/21/2025 Lili Mosher Body mass index (BMI [...] [address], [address], [place], [place], [id number], Progress Notes * Kandace GALLEGOSDOB:1995 (30 yo F)Acc No.[id number]:06/21/2025 Progress Notes Patient: Kandace ABEBE Provider: STU Chen :1995 A ge:30 Y S ex:Female Date:06/21/2025 Address:[address] [place] [phone] Pcp:Leelee Walsh Subjective: * Chief Complaints: * [...] * Images: Billing Information: * Visit Code: 40308 Office Visit, Est Pt., Level 4. * Procedure Codes: * Electronic signature of STU Valdivia on 06/25/2025 at 12:46 PM EST Sign off status: Pending * Provider: STU Chen Date: 08/22/2024 Generated for Jasvir john/Damion/Antonino on: 08/26/2024 12:46 [...]
[2025-06-25 12:24] VITALS: BP 141/92; PULSE 95; RESP 18; TEMP 37.1; O2SAT 100; BMI 41.5
--- OUTSIDE RECORDS SUMMARY | 2025-06-25 12:45 | XMS_ITS | Clinical Summary ---
Author Organization [facility] Address [address] [place] [address] Phone Care Team Providers Care Linoleum Layer Apprentice Name Role Phone Esequiel BARGER, Donovan Ponce [phone] Conditions or Problems Problem Name Problem Code Onset Date Status Entry Date Provider Comment Standard Description Annotate Elevated Liver Function Tests (LFT) 878395997 (SNOMED CT) Active Donovan Iraheta MD Liver [...] by mouth once a day 5 rifampin [id number] Donovan Iraheta MD VITAMINS 28-0.8 MG TABS Take 1 tablet by mouth once a day pnv b#95-issa us fumarate-fa [id number] Roque Zoe Medications Administered No information available. Allergies, Adverse Reactions, Alerts No information available. Results Date Name Value Unit Range Flag Description Lab Report: QUANTIFERON TB G OLD PLUS CLIENT INCUBATED ZZ-GE-[id number] Positive Negative A GE use on ly - for Link[employer] import when terms are not otherwise specified External Other: Patient port al update - Email Rust, [facility] ... PAT E-MAIL [email or web address] patient's e-mail address External Other: Patient port al update - EmailStatus, [facility] [place] [facility] ... PATPORTALPIN Active This bipin l be used to establish a PIN number for patients to register in the Patient Portal. 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
--- OUTSIDE RECORDS SUMMARY | 2025-06-25 12:46 | XMS_ITS | Clinical Summary ---
Author Organization [facility] Address [address] [place] [address] Care Team Providers Care Employee Development Specialist Name Role Phone Manjinder Walsh MD Primary Care Provider [phone] Social History Tobacco Use Types Packs/Day Years [...] 1995 TDAP/TD VACCINES (1 - Tdap) 2014 INFLUENZA VACCINE 02/17/2025 Pneumococcal Vaccine 0-49 Aged Out No longer eligible based on patient's age to complete this topic Insurance R Care Teams Employee Development Specialist Relationship Specialty Start Date End Date Manjinder Walsh MD [address] [facility] [address] [place] [address] PCP - General Family Medicine 05/31/21
--- OUTSIDE RECORDS SUMMARY | 2025-06-25 12:46 | XMS_ITS | Patient Health Record ---
Author Organization [facility] Address 1210 [facility] [address] [phone] Care Team Providers Care Barrel Roller Operator Name Role Phone Leelee Walsh Primary Care Provider Shu Norwood Unavailable [phone] Lili Mosher Unavailable [phone] Allergies No Known Allergies Results Component Value [...] Vaccine Route Administration Date Status Comme nts COVID 19 Pfizer Unknown 04/05/2021 Administered COVID 19 Pfizer Unknown 04/26/2021 Administered HEPB VACC PED/ADOL DOSE IM Unknown 09/29/1996 Administe red Menactra IM Intramuscular 01/03/2011 Administered ppd ID Intradermal 12/15/2012 Administered ppd ID Intradermal 02/21/2015 Administered Tetanus Tdap-Adacel (over 7yrs) IM Intramuscular 02/20/2006 Administered Tetanus Tdap-Adacel (over 7yrs) IM Intramuscular 02/21/2016 Administered Tetanus Tdap-Adacel (over 7yrs) Unknown 03/09/2023 Administered Varivax IM Intramuscular 02/29/2016 Administered Varivax SC Subcutaneous 03/28/2016 Administered xGardasil IM Intramuscular 01/03/2011 Administered xGardasil IM Intramuscular 03/05/2011 Administered xGardasil IM Intramuscular 07/07/2011 Administered Problems Problem Type SNOMED Code ICD Code Onset Dates Problem Status W/U Status Risk Notes Problem Morbid obesity (227781426) Morbid obesity (E66.01) Active confirmed Problem Plantar wart of left foot (80323014333563 102) Plantar wart of left foot (B07.0) Active confirmed Problem Acute maxillary sinusitis (17732048) Acute recurrent maxillary sinusitis (J01.01) Active confirmed Problem Obese class II (68993320317710 5) BMI 35.0-35.9,adult (Z68.35) Active confirmed Problem Migraine without aura, not refractory (635684209) Migraine without aura and without status migrainosus, not intractable (G43.009) Active confirmed Problem Obese class II (51020060879222 5) BMI 36.0-36.9,adult (Z68.36) Active confirmed Problem New daily persistent headache (42988654749881 5) New daily persistent headache (G44.52) Active confirmed Problem Dysphagia (01025230) Dysphagia, unspecified type (R13.10) Active confirmed Problem Atopic dermatitis (08819976) Atopic dermatitis, unspecified type (L20.9) Active confirmed Problem Body mass index 40+ - severely obese (441266959) Body mass index (BMI) of 40.1 to 44.9 in adult (Z68.41) Active confirmed Problem Missed period (12525728) Missed period (N92.6) Active confirmed Vital Signs Heart Rate 82 /min 06/21/2025 Blood pressure diastolic 72 mm Hg 06/21/2025 Height 61.25 in 06/21/2025 Blood pressure systolic 126 mm Hg 06/21/2025 Weight 223 lbs 06/21/2025 BMI 41.79 kg/m2 06/21/2025 Encounters Encounter Location Date Provider Diagnosis [facility] [address] [place] [phone] 09/12/2024 Shu Norwood URI (upper respirato ry infection) J06.9 [facility] [address] [place] [address] [place] [id number] 12/28/2024 Lili Crowdy Encounter for weight management Z76.89 and Body mass index (BMI) of 40.1 to 44.9 in adult Z68.41 [facility] [address] [place] [address] [place] [phone] 01/27/2025 Lili Crowdy Encounter for weight management Z76.89 and Body mass index (BMI) of 40.1 to 44.9 in adult Z68.41 [facility] [address] [place] [address] [place] [id number] 03/01/2025 Lili Crowdy Encounter for weight management Z76.89 and Body mass index (BMI) of 40.1 to 44.9 in adult Z68.41 [facility] [address] [place] [address] [place] [id number] 04/05/2025 Lili Crowdy Encounter for weight management Z76.89 ; Body mass index (BMI) of 40.1 to 44.9 in adult Z68.41 and Chronic eczema L30.9 [facility] [address] [place] [address] [place] [id number] 05/10/2025 Lili Crowdy Body mass index (BMI ) of 40.1 to 44.9 in adult Z68.41 and Encounter for weight management Z76.89 [facility] [address] [place] [address] [place], [place] [id number] 06/21/2025 Lili Crowdy Body mass index (BMI ) of 40.1 to 44.9 in adult Z68.41 ; Encounter for weight management Z76.89 and Injury of left knee, initial encounter S89.92XA [facility] 1210 [facility] [address] [place], [place] [phone] 05/31/2025 Leelee Walsh Assessments Encounter Date Diagnosis (ICD Code) Assessment Notes Treatment Notes Treatment Clinical Notes Section Notes 09/12/2024 URI (upper respiratory infection) (ICD-10 - J06.9) OTC decongestant and/or cough medicine of choice, fluids, rest, supportive measures for fever/symptom relief 12/28/2024 Body mass index (BMI) of 40.1 [...] 44.9 in adult (ICD-10 - Z68.41) 04/05/2025 Encounter for weight management (ICD-10 - Z76.89) Currently doing a low carb diet, weakness is sweets, strength is being around others who have had weight loss surgery Currently doing exercise walking 30 minutes/day 05/10/2025 Body mass index (BMI) of 40.1 to 44.9 in adult (ICD-10 - Z68.41) 06/21/2025 Body mass index (BMI) of 40.1 to 44.9 in adult (ICD-10 - Z68.41) 06/21/2025 Encounter for weight management (ICD-10 - Z76.89) Currently doing a low carb diet, weakness is sweets, strength is being around others who have had weight loss surgery Currently doing exercise walking 30 minutes/day 06/21/2025 Injury of left knee, initial encounter (ICD-10 - S89.92XA) 05/10/2025 Encounter for weight management (ICD-10 - Z76.89) Currently doing a low carb diet, weakness is sweets, strength is being around others who have had weight loss surgery Currently doing exercise walking 30 minutes/day 04/05/2025 Chronic eczema (ICD-10 - L30.9) 03/01/2025 Body mass index (BMI) of 40.1 to 44.9 in adult (ICD-10 - Z68.41) 01/27/2025 Body mass index (BMI) of 40.1 to 44.9 in adult (ICD-10 - Z68.41) Plan Of Treatment Pending Test Test Name Order Date MRI : Knee, left, without contrast 06/21 Next Appt Details Provider Name:Lili victor, 07/26/2025 09:30:00 AM, [address], [place], [place], [phone], Insurance Providers Payer Name Payer Address Payer Phone Subscriber Number Group Number Insured Name Patient Relationship to Insured Coverage Start Date Coverage End Date [facility] [address] [address] [place] [phone] [id number] Kandace Gallegos Self - patient is the insured Medical (General) History Medical History History ICD Code [facility] 01/2017 cellulitis right thigh COVID 19 infection, Jul 2020 Surgical History Surgery Date(Month/Year) tonsilectomy 08/21/15 cholecystectomy Jul 2018 Hospitalization History Reason Date(Month/Year) [facility]-left ankle pain 10/03
--- OUTSIDE RECORDS SUMMARY | 2025-06-25 12:46 | XMS_ITS | Clinical Summary ---
Author Organization [facility] Address [address] [place] [address] Care Team Providers Care Geothermal Production Manager Name Role Phone Manjinder Walsh MD Primary Care Provider [phone] Medications rifAMPin (Rifadin) 300 MG capsule Take [...] Date Last Done Comments [facility]-Depression Screening 1995 [facility]-Infant/Child/Adol SDOH Screenings 1995 [facility]-Varicella Vaccines (1 of 2 - 13+ 2-dose series) 02/26/2008 [facility]- SDOH Screenings 2013 [facility]-Adult SDOH Screenings 2013 [facility]-DTaP,Tdap,and Td Vaccines (1 - Tdap) 2014 [facility]-Hepatitis B Vaccines (1 of 3 - 19+ 3-dose series) 2014 [facility]-Pap Smear 02/26/2016 HPV Vaccines (1 - 3-dose SCDM series) 2022 [facility]-Cervical Cancer Screening 2025 [facility]-HPV/Cotest 2025 QFD-PRWUX-70 Vaccine (3 - 2024- season) 2025 04/26/2021, 04/05/2021 [facility]-Influenza Vaccine (#1) 2025 [facility]-Zoster Vaccines (1 of 2) 2045 [facility]-HIB Vaccines Aged Out No longer e [...] patient's age to complete this topic Insurance [facility] Care Teams Geothermal Production Manager Relationship Specialty Start Date End Date Manjinder Walsh MD [address] [address] [address] PCP - General 11/30/20
--- NOTE | 2025-06-25 13:02 | ED_ITS ---
<Statement entered by Gómez Cortez MD - 06/25/25 14:18> I was consulted by the FLORIDALMA, and we discusssed the complexity of the problems being adressed. I approved the treatment and management plan for this patient's care in the Emergency Department, thus performing a substantive portion of the medical decision making. Gómez Cortez MD Discharge Plan Disposition Patient Disposition: Home, Self-Care Condition: Fair Prescriptions Prescriptions: New amoxicillin 875 mg tablet 875 mg PO Q12H Qty: 20 0RF fluticasone propionate [Flonase Allergy Relief] 50 mcg/actuation spray,suspension 1 spray intranasal DAILY PRN (Reason: allergy symptoms) 7 Days Qty: 16 0RF Rx Instructions: administer into each nostril No Action Cici 14 mcg/24 hr (3 yrs) 13.5 mg intrauterine device intrauterine sertraline 25 mg tablet 25 mg PO DAILY Qty: 30 11RF pseudoephedrine HCl [Sudafed 12 Hour] 120 mg tablet extended release 120 mg PO Q12H PRN (Reason: nasal congestion) Qty: 20 0RF Referrals Follow up/Referrals: Jonathan Walsh MD [Primary Care Provider, Medical] - See instructions Activity Restrictions/Add. Instructions Additional Instructions/Restrictions: Today you were evaluated in the ED and diagnosed with upper respiratory infection. Please use the Sudafed oaec-eet-yxtgkkm as directed, Flonase, take your antibiotic as directed. Return to the ED for any worsening of condition. Clinical Impressions Clinical Impression: URI, acute, Sinusitis Instructions Patient Instructions: Sinusitis Print Language Print Language: Stateless Discharge ED Provider: Gómez Cortez General Adult HPI General Chief complaint: Upper Respiratory Infection Stated complaint: dizzy, right ear pain, low grade fever, cough Time Seen by Provider: 06/25/25 12:41 Mode of Arrival: Ambulatory Source of Information: Patient Description of Symptoms (Recalled from ER Triage Doc. by RN): PT was seen thursday @[facility] for dizziness, cough, and runny nose. Pt c/o low grade fever since along with increased dizziness since thursday. Pt states her right ear started hurting yesterday as well. History of Present Illness HPI narrative: patient is a 30-year-old female PMHx recent diagnosis of acute URI who presents to the ED for complaints of intermittent dizziness, R ear pain, right ear pressure, nasal congestion and right sinus tenderness. Patient states her symptoms have been present for 4 to 5 days, she was evaluated at [facility] and advised to start Sudafed which she states she did not do since it is an ojgv-dwg-lovwfkb medication, she felt that it would not work. She states her son has recently been started on Augmentin which helped his symptoms, advises that he has similar symptoms to her. Related Data Home Medications ?Medication ?Instructions ?Recorded ?Confirmed levonorgestrel 14 mcg/24 hr (up to intrauterine 06/23/25 3 yrs) 13.5 mg intrauterine device (Cici) Previous Rx's ?Medication ?Instructions ?Recorded sertraline 25 mg tablet 25 mg PO DAILY #30 tabs 12/11 pseudoephedrine HCl 120 mg 120 mg PO Q12H PRN nasal tablet,extended release (Sudafed congestion #20 tabs 12 Hour) amoxicillin 875 mg tablet 875 mg PO Q12H #20 tabs 02/10 fluticasone propionate 50 1 spray intranasal DAILY PRN 06/25/25 mcg/actuation nasal allergy symptoms 7 days #16 grams spray,suspension (Flonase Allergy Relief) Allergies Allergy/AdvReac Type Severity Reaction Status Date / Time No Known Allergies Allergy Verified 06/23/25 11:25 [facility] Disclaimer: The information contained in this section may have been updated after the patient was seen, as this information can be updated by other users. Medical History (Updated 06/25/25 @ 13:03 by Kati Parkinson APRN) URI (upper respiratory infection) Decreased libido IUD check up Encounter for insertion of Cici IUD Menorrhagia Dysmenorrhea Obesity (BMI 30-39.9) Oligomenorrhea PCOS (polycystic ovarian syndrome) Anxiety Acute blood loss anemia Fatty liver Tuberculosis Irregular periods/menstrual cycles Obesity (BMI 30.0-34.9) Surgical History S/P History of tonsillectomy History of cholecystectomy Family History Other Asthma Cancer Coronary artery disease Diabetes Heart attack Hyperlipidemia Hypertension Kidney disease Thyroid disorder Tuberculosis Social History Smoking Status: Never smoker alcohol intake: never substance use type: denies use current occupational status: employed Travel in the last 8 weeks?: None household members: family and other housing: house current occupation: [employer] current occupational exposures/hazards: No caffeine: No Have you lived/traveled outside US in past 30 days?: No Contact w/someone who lives/traveled outside US past 30 days?: No Exposure to someone with infectious disease in past 14 days?: No Do you have a fever (greater than 100.4 F or 38 C)?: No Have you tested positive for COVID-19?: No Exposed to someone with COVID-19 in past 14 days?: No Do you have a sore throat?: No Do you have a cough?: No Do you have any weakness?: No Do you have any diarrhea?: No Are you experiencing any unusual bleeding?: No Do you have any muscle aches/pain?: No Do you have any abdominal pain?: No Are you experiencing loss of taste or smell?: No Other Medical History Have you received the Flu Vaccine for this season: No Have you received the Pneumonia Vaccine: No ROS Obtained: Yes Systems reviewed as appropriate & no additional complaints except as documented Physical Exam General General appearance: alert Head Head exam: atraumatic Eye Eye exam: Present PERRL ENT ENT exam: Present other (Clear, bulging TM, worse on right side. Right sided maxillary sinus tenderness.) Neck Neck exam: Present full ROM; Absent tenderness Chest Chest inspection: Present normal inspection Respiratory Respiratory exam: Present normal lung sounds bilaterally Cardiovascular Cardiovascular exam: Present regular rate Abdominal Exam Abdominal exam: Present soft Back Exam Back exam: Present full ROM Neurological Exam Neurological exam: Present alert and oriented X3 Skin Skin exam: Present warm and dry Medical Decision Making Medical Records Screening: Per USPSTF and CDC recommendations, given the prevalence of disease in our region, it is our hospital?s policy to screen for HIV and viral Hepatitis for all patients aged 18 and over and those with ongoing risk factors. Braydon Inquiry Pt receiving controlled substance: No Vital Signs: 06/25/25 12:24 06/25/25 13:18 Temperature 98.7 F 98.7 F Temperature Source Oral Pulse Rate 95 H Pulse Rate [Right] 95 H Respiratory Rate 18 18 Blood Pressure 141/92 H Blood Pressure [Right Arm] 141/92 H Blood Pressure Mean [Right Arm] 108 Blood Pressure Source [Right Arm] Automatic Cuff Blood Pressure Position [Right Arm] Sitting 02 Sat by Pulse Oximetry 100 Oxygen Delivery Method Room Air Medical Decision Narrative: In summary, patient is a 30-year-old female PMHx recent diagnosis of acute URI who presents to the ED for complaints of intermittent dizziness, right ear pain, right ear pressure, nasal congestion and right sinus tenderness. Patient states her symptoms have been present for 4 to 5 days, she was evaluated at [facility] and advised to start Sudafed which she states she did not do since it is an elem-jvp-jkqhwmb medication, she felt that it would not work. She states her son has recently been started on Augmentin which helped his symptoms, advises that he has similar symptoms to her, is requesting abx. Advises that she has been doing bldn-hms-xhvfisf sinus rinses. She denies fever, chills, headache, visual disturbances, posterior neck pain, chest pain, shortness of breath. Differential diagnosis include acute URI, viral illness, sinusitis, among others. Upon initial evaluation patient is alert, oriented and cooperative. She is stable. Physical exam remarkable for clear, bulging TM, right sided maxillary sinus tenderness, PERRLA, no nystagmus. Advised patient that although I will prescribe an antibiotic, she should hold it until day 7-9 of symptoms due to probable viral cause. We discussed that she should start an idns-xhp-jjbchxf Sudafed and take as directed, advised her she should also start Flonase as well. Discussed literature reports regarding sinus rinses, advised her to continue these. Discussed following up with PCP and return precautions to the ED. Patient verbalized understanding. Critical Care Critical Care Time Critical Care Time: No
[2025-06-25 13:18] VITALS: BP 141/92; PULSE 95; RESP 18; TEMP 37.1; O2SAT 100
== END 2025-06-25 13:19 | disposition home or self-care (01) ==
PROVIDERS: Emergency Provider Student in an Organized Health Care Education/Training Program; PCP Family Medicine
DX: J01.90 Acute sinusitis, unspecified (principal); R42 Dizziness and giddiness; H92.01 Otalgia, right ear
CPT/HCPCS: 99282; 99283

== ENCOUNTER 2025-06-27 07:38 | Outpatient (CLI) | payer OTHER, SELFPAY ==
--- OUTSIDE RECORDS SUMMARY | 2024-06-20 08:30 | XMS_ITS ---
Author Organization [facility] Address [address] [facility] [address] [id number] Care Team Providers Care Mobile Engineer Name Role Phone Leelee Walsh Primary Care Provider Allergies No Known Allergies REASON FOR VISIT rash on hands and rash on right arm Medications Medication SIG (Take, Route, Frequency, Duration) Notes Start Date End Date Status Zoloft 25 MG 1 tablet Orally Once a day; Duration: 30 day(s) Active Mometasone Furoate 0.1 % 1 application E xternally Once a day 06/20/2024 Active Vital Signs Weight 218.6 lbs 06/20/2024 Blood pressure systolic 110 mm Hg 06/20/20 24 Blood pressure diastolic 70 mm Hg 024 Heart Rate 82 /min 06/20/2024 Height 61.25 in 06/20/2024 BMI 40.96 kg/m2 06/20/2024 Encounters Encounter Location Date Provider Diagnosis [facility] [address] [facility] [address] [place] [id number] 06/20/2024 Leelee Walsh Dyshidrotic eczema L30.1 Assessments Encounter Date Diagnosis (ICD Code) Assessment Notes Treatment Notes Treatment Clinical Notes Section Notes 06/20/2024 Dyshidrotic eczema (ICD-10 - L30.1) occlusive dressings, patient instructed Plan Of Treatment Medication Medication Name Sig Start Date Stop Date Notes Mometasone Furoate 0.1 % 1 application E xternally Once a day 06/20/2024 Treatment Notes Assessment Notes Dyshidrotic eczema occlusive dressings, patient instructed Next Appt Details Follow Up: prn, Reason: Provider Name:Lili victor, 07/26/2025 09:30:00 AM, [address], [address], [place], [place], [id number], Progress Notes * Kandace GALLEGOSDOB:1995 (30 yo F)Acc No.[id number]:06/20/2024 Progress Notes Patient: Kandace ABEBE Provider: Leelee Walsh M.D. :1995 A ge:29 Y S ex:Female Date:06/20/2024 [facility] [id number] Subjective: * Chief Complaints: * 1 . Rash on hands and rash on right arm. * HPI: D ermatology: The patient is here today with c/o a rash on her hands and right arm. Pt states she has some itching of the right hand and is weeping a little bit. Pt states this has been going on for a while and nothing she has tried will clear it up. 29 year old female presents with c/o rash. * ROS: C ARDIOLOGY: no C hest pain. n o S hortness of breath. ? G ASTROENTEROLOGY: no N ausea. n o V omiting. n o D iarrhea.? U ROLOGY: no D ifficulty urinating. n o B lood in urine. * Medical History: U TC 01/2017 cellulitis right thigh, COVID 19 infection, Jul 2020. * Surgical History: t onsilectomy 08/21/15, cholecystectomy Jul 2018. * Hospitalization/Major Diagno stic Procedure: U TC-left ankle pain 10/03. * Family History: F ather: alive 57 yrs. M other: alive 57 yrs. P aternal Grand Father: . P aternal Grand Mother: . M aternal Grand Father: alive. M aternal Grand Mother: . 2 sister(s) . . * Social History: C URRENT TOBACCO USE S moking Status: Patient does NOT smoke, Second hand smoke exposure: No. C affeine: yes, frequency:some. Home smoke detector use: yes. * Medications: T aking Zoloft 25 MG Tablet 1 tablet Orally Once a day , Discontinued Multivitamin + DHA 28-0.8 & 200 MG Miscellaneous 1 tab(s) orally once a day , Discontinued Cefdinir 300 MG Capsule 1 cap(s) Orally Two times a day , Medication List reviewed and reconciled with the patient * Allergies: N .K.D.A. Objective: * Vitals: W t:218.6, Temp:97.8, BP:110/70, HR:82, Nurse:FRANCOIS, Ht: 61.25, BMI:40.96. * Examination: D ermatology: Extremities: hands with interdigital eczematous skin changes, erythema, not excoriated.. Assessment: * Assessment: 1. D yshidrotic eczema - L30.1 (Primary) Plan: * Treatment: * Follow Up: p rn * Images: Billing Information: * Visit Code: 55652 Office Visit, Est Pt., Level 3. * Procedure Codes: * Electronic signature of Leelee Walsh MD on 06/27/2025 at 07:42 AM EST Sign off status: Pending * Provider: Leelee Walsh M.D. Date: 08/21/2023 Generated for Jasvir john/Damion/Antonino on: 08/28/2024 07:42 AM EST History and Physical Notes * HPI (History of Present Illness) Category Sub-Category Detail Notes Category Not es Dermatology rash Examination Category Sub-Category Detail Notes Category Not es Dermatology Extremities: hands with inter digital eczematous skin changes, erythema, not excoriated.
--- OUTSIDE RECORDS SUMMARY | 2024-09-12 04:45 | XMS_ITS ---
Author Organization [facility] Address [address] [id number] Care Team Providers Care Drawing Instructor Name Role Phone Leelee Walsh Primary Care Provider [phone] Shu Norwood Unavailable [phone] Allergies No Known Allergies Results Component Value Reference Range Notes CBC Fingerstick (in house) Reviewed date:09/12/2024 12:49:15 PM Interpretation: Performing Lab: Notes/Report: wbc 6.8 3.5 - 10 lym 30.4% 15 - 50 mid 5.9% 2 - 15 gran 63.7% 35 - 80 rbc 4.78 3.5 - 5.5 hgb 13.4 11.5 - 16.5 hct 39.6 35 - 55 mcv 82.7 75 - 100 mch 27.9 25 - 35 mchc 33.8 31 - 38 plat 166 100 - 400 REASON FOR VISIT possible sinus infection Medications Medication SIG (Take, Route, Frequency, Duration) Notes Start Date End Date Status Zoloft 25 MG 1 tablet Orally Once a day; Duration: 30 day(s) Active Mometasone Furoate 0.1 % 1 application E xternally Once a day 06/20/2024 Active dexAMETHasone 4 MG 1 tablet Orally ever y 12 hrs; Duration: 5 day(s) 09/12/2024 Active Vital Signs Weight 218.0 lbs 09/12/2024 Blood pressure systolic 118 mm Hg 09/12/19 25 Blood pressure diastolic 64 mm Hg 025 Heart Rate 80 /min 09/12/2024 Height 61.25 in 09/12/2024 BMI 40.85 kg/m2 09/12/2024 Encounters Encounter Location Date Provider Diagnosis [facility] [address] [place] [id number] 09/12/2024 Shu Norwood URI (upper respirato ry infection) J06.9 Assessments Encounter Date Diagnosis (ICD Code) Assessment Notes Treatment Notes Treatment Clinical Notes Section Notes 09/12/2024 URI (upper respiratory infection) (ICD-10 - J06.9) OTC decongestant and/or cough medicine of choice, fluids, rest, supportive measures for fever/symptom relief Plan Of Treatment Medication Medication Name Sig Start Date Stop Date Notes dexAMETHasone 4 MG 1 tablet Orally ever y 12 hrs; Duration: 5 day(s) 09/12/2024 Treatment Notes Assessment Notes URI (upper respiratory infection) OTC de congestant and/or cough medicine of choice, fluids, rest, supportive measures for fever/symptom relief Next Appt Details Follow Up: prn, Reason: Provider Name:Lili victor, 07/26/2025 09:30:00 AM, 1210 [facility] 36 [facility], [address], [place], [id number], Progress Notes * Kandace GALLEGOSDOB:1995 (30 yo F)Acc No.[id number]:09/12/2024 Progress Notes Patient: Kandace ABEBE Provider: GAGAN Ross :1995 A ge:29 Y S ex:Female Date:09/12/2024 Address:[address] [place], [place] [address] [id number] Pcp:Leelee Walsh Subjective: * Chief Complaints: * 1 . Possible sinus infection. * HPI: E NT/respiratory: 29 year old female presents with c/o cough d ry cough. c/o nasal congestion y ellow drainage, pressure. c/o rhinorrhea. c/o post nasal drainage. Denies : sore throat. D enies : Fever. D enies : ear pain. D enies : headache. D enies : chest congestion. D enies : smoking. D enies : body aches. Pt sts the drainage started on Thursday and sts it has gotten worse since then; eating and drinking OK. * ROS: C ARDIOLOGY: no C hest [...] 10/03. * Family History: F ather: alive 58 yrs. M other: alive 58 yrs. P aternal Grand Father: . P [...] 1 tablet Orally Once a day , Taking Mometasone Furoate 0.1 % Ointment 1 application Externally Once a day , Medication List reviewed and reconciled with the patient * Allergies: N .K.D.A. Objective: * Vitals: W t:218.0, Temp:98.4, BP:118/64, HR:80, O2 Sat:100% on RA, Nurse:david, Ht: 61.25, BMI:40.85. * Examination: E NT/Respiratory: General Appearance: well nourished and hydrated, NAD, alert, active. E yes: sclera and conjunctiva clear. E ars: auditory canals normal bilaterally, tympanic membranes normal bilaterally. N ose : congested. O ral cavity : no erythema or exudate seen on pharynx. N kendy : supple, no cervical lymphadenopathy.?Heart : RRR. L ungs: CTAB A&P. Assessment: * Assessment: 1. U RI (upper respiratory infection) - J06.9 (Primary) Plan: * Treatment: * Labs: * L ab: CBC Fingerstick (in house) (Collection Date & Time - 09/12/2024) Value Reference Range w bc 6.8 3.5 - 10 * l ym 30.4% 15 - 50 * m id 5.9% 2 - 15 * g ran 63.7% 35 - 80 * r bc 4.78 3.5 - 5.5 * h gb 13.4 11.5 - 16.5 * h ct 39.6 35 - 55 * m cv 82.7 75 - 100 * m ch 27.9 25 - 35 * m chc 33.8 31 - 38 * p lat 166 100 - 400 * Anita Stokes 09/12/2024 10:28:5 1 AM > , Provider reviewed results while patient in office.Shu Norwood 09/12/2024 12:49:13 PM > * Procedure Codes: 9 4760 [place], [address] CAPILLARY BLOOD DRAW, 97093 CBC WITH AUTO DIFF * Follow Up: p rn * Images: Billing Information: * Visit Code: 60201 Office Visit, Est Pt., Level 3. * Procedure Codes: [address] [place] [address] CAPILLARY BLOOD DRAW. 45110 CBC WITH AUTO DIFF. * Electronic signature of Shruthi Nor[place] APRN on 06/27/2025 at 07:42 AM EST Sign off status: Pending * Provider: GAGAN Ross Date: 0 09/12/2024 Generated for Jasvir john/Damion/eTransmitting on: 1 08/28/2024 07:42 AM EST History and Physical Notes * HPI (History of Present Illness) Category Sub-Category Detail Notes Category Not es ENT/respiratory sore throat Pt sts the d rainage started on Thursday and sts it has gotten worse since then; eating and drinking OK ear pain cough dry cough Fever post nasal drainage headache chest congestion rhinorrhea nasal congestion yellow drainage, pre ssure smoking body aches Examination Category Sub-Category Detail Notes Category Not es ENT/Respiratory Oral cavity : no erythema or exudate s een on pharynx Ears: auditory canals norm al bilaterally, tympanic membranes normal bilaterally Neck : supple, no cervical lymphadenopathy Heart : RRR Lungs: CTAB A&P General Appearance: well nourished and h ydrated, NAD, alert, active Nose : congested Eyes: sclera and conjuncti va clear
--- OUTSIDE RECORDS SUMMARY | 2024-12-28 10:15 | XMS_ITS ---
Author Organization [facility] Address [address] [facility] [address] [phone] Care Team Providers Care Flume Ride Operator Name Role Phone Leelee Walsh Primary Care Provider Lili Mosher Unavailable [phone] Allergies No Known Allergies REASON FOR VISIT [...] Body mass index 40+ - severely obese (964520212) Body mass index (BMI) of 40.1 to 44.9 in adult (Z68.41) Active confirmed Vital Signs Weight 220.4 lbs 12/28/2024 Blood pressure systolic 114 mm Hg 12/29/19 25 Blood pressure diastolic 72 mm Hg 025 Heart Rate 76 /min 12/28/2024 Height 61.25 in 12/28/2024 BMI 41.3 kg/m2 12/28/2024 Encounters Encounter Location Date Provider Diagnosis [facility] [address] [phone] 12/28/2024 Lili Mosher Encounter for weight management [...] [address], [address], [place], [place], [id number], Progress Notes * Kandace GALLEGOSDOB:1995 (30 yo F)Acc No.[id number]:12/28/2024 Progress Notes Patient: Kandace ABEBE Provider: STU Chen :1995 A ge:29 Y S ex:Female Date:12/28/2024 Address:[address] [place] [phone] Pcp:Leelee Walsh Subjective: * Chief Complaints: * [...] * Images: Billing Information: * Visit Code: 96077 Office Visit, Est Pt., Level 3. * Procedure Codes: 1036F TOBACCO NON-USER. G8783 BP SCR PRFRM RCMDD DEFIND SCR INTVL. G8752 MOST RECENT SYSTOLIC BP < 140MM HG. G8754 MOST RECENT DIASTOLIC BP < 90MM HG. * Electronic signature of STU Valdivia on 06/27/2025 at 07:43 AM EST Sign off status: Pending * Provider: STU Chen Date: 0 12/28/2024 Generated for Jasvir john/Damion/Antonino on: 1 08/28/2024 07:43 AM EST History and Physical Notes * HPI (History of Present Illness) Category Sub-Category Detail Notes Category Not es Constitutional weight loss Examination Category Sub-Category Detail Notes Category Not es General Examination Heart: RSR Lungs: clear to auscultatio n General Appearance: NAD Chest: normal shape and exp ansion
--- OUTSIDE RECORDS SUMMARY | 2025-01-27 04:45 | XMS_ITS ---
Author Organization [facility] Address 1210 [facility] [address] [place] [phone] Care Team Providers Care Real Time Operator Name Role Phone Leelee Walsh Primary Care Provider Lili Mosher Unavailable [phone] Allergies No Known Allergies REASON FOR VISIT 1 month Medications Medication SIG (Take, Route, Frequency, Duration) Notes Start Date End Date Status Mometasone Furoate 0.1 % 1 application E xternally Once a day 06/20/2024 Active Zoloft 25 MG 1 tablet Orally Once a day; Duration: 30 day(s) Active Vital Signs Weight 222.2 lbs 01/27/2025 Blood pressure systolic 114 mm Hg 01/28/20 25 Blood pressure diastolic 70 mm Hg 025 Heart Rate 50 /min 01/27/2025 Height 61.25 in 01/27/2025 BMI 41.64 kg/m2 01/27/2025 Encounters Encounter Location Date Provider Diagnosis [facility] 1210 [facility] [address] [place] [phone] 01/27/2025 Lili Mosher Encounter for weight management Z76.89 and Body mass index (BMI) of 40.1 to 44.9 in adult Z68.41 Assessments Encounter Date Diagnosis (ICD Code) Assessment Notes Treatment Notes Treatment Clinical Notes Section Notes 01/27/2025 Encounter for weight management (ICD-10 - Z76.89) Currently doing a low carb diet, weakness is sweets, strength is being around others who have had weight loss surgery Currently doing exercise walking 30 minutes/day 01/27/2025 Body mass index (BMI) of 40.1 to [...] [address], [address], [place], [place], [phone], Progress Notes * Monica GALLEGOScatarinoDOB:1995 (30 yo F)Acc No.[id number]:01/27/2025 Progress Notes Patient: Kandace ABEBE Provider: STU Chen :1995 A ge:29 Y S ex:Female Date:01/27/2025 Address:[address] [place] [phone] Pcp:Leelee Walsh Subjective: * Chief Complaints: * 1 . 1 month. * HPI: H PI: 29 year old female presents with c/o Patient is here today for?Pt is here today for a 1 month check up to disucss weight loss. Pt sts she does plan to h ave the bariatric surgery at the beginning of this upcoming year. * ROS: D ERMATOLOGY: no R sri. [...] N .K.D.A. Objective: * Vitals: W t: 222.2, Temp: 98.6, BP: 114/70, HR: 50, Nurse: david, Ht: 61.25, BMI:41.64. * Examination: G eneral Examination: General Appearance: [...] BP SCR PRFRM RCMDD DEFIND SCR INTVL, 3074F SYST BP LT 130 MM HG, 3078F DIAST BP < 80 MM HG * Follow Up: 1 month * Images: Billing Information: * Visit Code: 56447 Office Visit, Est Pt., Level 3. * Procedure Codes: 1036F TOBACCO NON-USER. G8783 BP SCR PRFRM RCMDD DEFIND SCR INTVL. 3074F SYST BP LT 130 MM HG. 3078F DIAST BP < 80 MM HG. * Electronic signature of STU Valdivia on 06/27/2025 at 07:42 AM EST Sign off status: Pending * Provider: STU Chen Date: 0 01/27/2025 Generated for Jasvir john/Damion/Antonino on: 1 08/28/2024 07:42 AM EST History and Physical Notes * HPI (History of Present Illness) Category Sub-Category Detail Notes Category Not es HPI Patient is here today for Pt is here today for a 1 month check up to disucss weight loss. Pt sts she does plan to have the bariatric surgery at the beginning of this upcoming year Examination Category Sub-Category Detail Notes Category Not es General Examination Heart: RSR Lungs: clear to auscultatio n General Appearance: NAD Chest: normal shape and exp ansion
--- OUTSIDE RECORDS SUMMARY | 2025-03-01 04:00 | XMS_ITS ---
Author Organization Mayela Address 1210 [facility] [address] [place] [address] [place] [phone] Care Team Providers Care Cement Tile Maker Name Role Phone Leelee Walsh Primary Care Provider Lili Mosher [phone] Allergies No Known Allergies REASON FOR VISIT 1 month Medications Medication SIG (Take, Route, Frequency, Duration) Notes Start Date End Date Status Zoloft 25 MG 1 tablet Orally Once a day; Duration: 30 day(s) Active Vital Signs Weight 221.4 lbs 03/01/2025 Blood pressure systolic 130 mm Hg 03/01/20 25 Blood pressure diastolic 72 mm Hg 025 Heart Rate 83 /min 03/01/2025 Height 61.25 in 03/01/2025 BMI 41.49 kg/m2 03/01/2025 Encounters Encounter Location Date Provider Diagnosis Adele [address] [place] [phone] 03/01/2025 Lili Mosher Encounter for weight management [...] Name:Lili victor, 07/26/2025 09:30:00 AM, [address] [facility] [address], [address], [place], [place], [address], Progress Notes * SEDRICKMary KandaceDOB:1995 (30 yo F)Acc No.[id number]:03/01/2025 Progress Notes Patient: Kandace ABEBE Provider: STU Chen :1995 A ge:30 Y S ex:Female Date:03/01/2025 Address:[address] [place], [place] [phone] Pcp:Leelee Walsh Subjective: * Chief Complaints: * [...] * Images: Billing Information: * Visit Code: 18836 Office Visit, Est Pt., Level 3. * Procedure Codes: 1036F TOBACCO NON-USER. 3075F SYST BP GE 130 - 139MM HG. 3078F DIAST BP < 80 MM HG. * Electronic signature of STU Valdivia on 06/27/2025 at 07:41 AM EST Sign off status: Pending * Provider: STU Chen Date: 0 03/01/2025 Generated for Jasvir john/Damion/Silvianosmitting on: 1 08/28/2024 07:41 AM EST History and Physical Notes [...]
--- OUTSIDE RECORDS SUMMARY | 2025-04-05 05:00 | XMS_ITS ---
Author Organization [facility] Address [address] [facility] [address] [phone] Care Team Providers Care Video Photographer Name Role Phone Leelee Walsh Primary Care Provider Lili Mosher Unavailable [phone] Allergies No Known Allergies REASON FOR VISIT 1 month Medications Medication SIG (Take, Route, Frequency, Duration) Notes Start Date End Date Status Triamcinolone Acetonide 0.1 % 1 application Externally Twice a day 04/05/2025 Active Zoloft 25 MG 1 tablet Orally Once a day; Duration: 30 day(s) Active Vital Signs Weight 219.6 lbs 04/05/2025 Blood pressure systolic 122 mm Hg 04/05/20 25 Blood pressure diastolic 60 mm Hg 025 Heart Rate 84 /min 04/05/2025 Height 61.25 in 04/05/2025 BMI 41.15 kg/m2 04/05/2025 Encounters Encounter Location Date Provider Diagnosis Adele [address] [facility] [address] [place] [phone] 04/05/2025 Lili Mosher Encounter for weight management [...] 07/26/2025 09:30:00 AM, [address] [facility] [address], [place], [place], [phone], Progress Notes * Kandace GALLEGOSDOB:1995 (30 yo F)Acc No.[id number]:04/05/2025 Progress Notes Patient: Kandace ABEBE Provider: STU Chen :1995 A ge:30 Y S ex:Female Date:04/05/2025 Address:[facility] [address] [place] [place], [place] Pcp:Leelee Walsh Subjective: * Chief Complaints: [...] * Images: Billing Information: * Visit Code: 01819 Office Visit, Est Pt., Level 3. * Procedure Codes: 1036F TOBACCO NON-USER. 3074F SYST BP LT 130 MM HG. 3078F DIAST BP < 80 MM HG. * Electronic signature of STU Valdivia on 06/27/2025 at 07:43 AM EST Sign off status: Pending * Provider: STU Chen Date: 0 04/05/2025 Generated for Jasvir john/Damion/eTransmitting on: 1 08/28/2024 07:43 AM EST History [...]
--- OUTSIDE RECORDS SUMMARY | 2025-05-10 04:15 | XMS_ITS ---
Author Organization [facility] Address [address] [facility] [address] [phone] Care Team Providers Care Mask Designer Name Role Phone Leelee Walsh Primary Care Provider Lili Mosher Unavailable [phone] Allergies No Known Allergies REASON FOR VISIT 1 month Medications Medication SIG (Take, Route, Frequency, Duration) Notes Start Date End Date Status Zoloft 25 MG 1 tablet Orally Once a day; Duration: 30 day(s) Active Triamcinolone Acetonide 0.1 % 1 application Externally Twice a day 04/05/2025 Active Vital Signs Weight 219 lbs 05/10/2025 Blood pressure systolic 124 mm Hg 05/10/20 25 Blood pressure diastolic 70 mm Hg 025 Heart Rate 89 /min 05/10/2025 Height 61.25 in 05/10/2025 BMI 41.04 kg/m2 05/10/2025 Encounters Encounter Location Date Provider Diagnosis Adele [facility] [address] [place] [id number] 05/10/2025 Lili Mosher Body mass index (BMI [...] [address], [place], [place], [phone], Progress Notes * Monica GALLEGOScatarinoDOB:1995 (30 yo F)Acc No.[id number]:05/10/2025 Progress Notes Patient: Kandace ABEBE Provider: STU Chen :1995 A ge:30 Y S ex:Female Date:05/10/2025 Address:[address] [place] [phone] Pcp:Leelee Walsh Subjective: * Chief Complaints: * [...] * Images: Billing Information: * Visit Code: 96846 Office Visit, Est Pt., Level 3. * Procedure Codes: 1036F TOBACCO NON-USER. 3074F SYST BP LT 130 MM HG. 3078F DIAST BP < 80 MM HG. * Electronic signature of STU Valdivia on 06/27/2025 at 07:41 AM EST Sign off status: Pending * Provider: STU Chen Date: 1 Generated for Jasvir john/Damion/Evanitting on: 08/28/2024 07:41 AM EST History and Physical [...]
--- OUTSIDE RECORDS SUMMARY | 2025-06-21 04:00 | XMS_ITS ---
Author Organization [facility] Address [address] [facility] [address] [place] [id number] Care Team Providers Care Import Specialist Name Role Phone Leelee Walsh Primary Care Provider Lili Mosher Unavailable [phone] Allergies No Known Allergies REASON FOR VISIT 1 month Medications Medication SIG (Take, Route, Frequency, Duration) Notes Start Date End Date Status Zoloft 25 MG 1 tablet Orally Once a day; Duration: 30 day(s) Active Vital Signs Weight 223 lbs 06/21/2025 Blood pressure systolic 126 mm Hg 06/21/20 25 Blood pressure diastolic 72 mm Hg 025 Heart Rate 82 /min 06/21/2025 Height 61.25 in 06/21/2025 BMI 41.79 kg/m2 06/21/2025 Encounters Encounter Location Date Provider Diagnosis [facility] [address] [place] [id number] 06/21/2025 Lili Mosher Body mass index (BMI [...] surgery Currently doing exercise walking 30 minutes/day Pending Test Test Name Order Date MRI : Knee, left, without contrast 06/21 Next Appt Details Follow Up: via phone to repo rt test results, Reason: Provider Name:Lili Edmonds y, 07/26/2025 09:30:00 AM, [address], [address], [place], [place], [id number], Progress Notes * Kandace GALLEGOSDOB:1995 (30 yo F)Acc No.[id number]:06/21/2025 Progress Notes Patient: Kandace ABEBE Provider: STU Chen :1995 A ge:30 Y S ex:Female Date:06/21/2025 Address:[address] [place] [address] Pcp:Leelee Walsh Subjective: * Chief Complaints: * [...] maging: MRI : Knee, left, without contrast * Follow Up: v ia phone to report test results * Images: Billing Information: * Visit Code: 34770 Office Visit, Est Pt., Level 4. * Procedure Codes: * Electronic signature of STU Valdivia on 06/27/2025 at 07:41 AM EST Sign off status: Pending * Provider: STU Chen Date: 08/22/2024 Generated for Jasvir john/Damion/Antonino on: 08/28/2024 07:41 AM EST History and [...]
--- OUTSIDE RECORDS SUMMARY | 2025-06-27 07:40 | XMS_ITS | Clinical Summary ---
Author Organization [facility] Address [address] [place] [address] Phone Care Team Providers Care Paper Coating Supervisor Name Role Phone Esequiel BARGER, Donovan Ponce [phone] Conditions or Problems Problem Name Problem Code Onset Date Status Entry Date Provider Comment Standard Description Annotate Elevated Liver Function Tests (LFT) 804909490 (SNOMED CT) Active Donovan Iraheta MD Liver [...] by mouth once a day 5 rifampin [id number] Donovan Iraheta MD VITAMINS 28-0.8 MG TABS Take 1 tablet by mouth once a day pnv b#95-issa us fumarate-fa [id number] Roque Zoe Medications Administered No information available. Allergies, Adverse Reactions, Alerts No information available. Results Date Name Value Unit Range Flag Description Lab Report: QUANTIFERON TB G OLD PLUS CLIENT INCUBATED ZZ-GE-[id number] Positive Negative A GE use on ly - for LinkLogic import when terms are not otherwise specified External Other: Patient port al update - Email [facility], pending sale to [facility] ... PAT E-MAIL [email or web address] patient's e-mail address External Other: Patient port al update - [facility], [facility] ... PATPORTALPIN Active This bipin l be used to establish a PIN number for patients to register in the Patient Portal. Office Visit: rm 4 MEDS REVIEW Done Documenta tion of current medications (procedure) DIET FILTER PLANT SUPERVISOR Yes - Overweight Dietary management education, guidance, and counseling (procedure) SMOK STATUS Never smoker Toba account development specialist smoking status Plan of Care Type Date Detail Pending order CMP Pending order New Oral Antibio tic Pending order Quantiferon Gold TB Assay Pending order T-SPOT Procedures Code Procedure Name Date Entry Date CPT-72417 CMP CPT-rick New Oral Antibiotic CPT-60064 Quantiferon Gold TB Assay 20 09/06/12 CPT-72552 T-SPOT Vital Signs Date Name Value Unit [...]
--- OUTSIDE RECORDS SUMMARY | 2025-06-27 07:41 | XMS_ITS | Patient Health Record ---
Author Organization [facility] Address [address] [facility] [address] [id number] Care Team Providers Care Steamfitter Supervisor Name Role Phone Leelee Walsh Primary Care Provider Shu Norwood Unavailable [phone] Lili Mosher Unavailable [phone] Allergies No Known Allergies Results Component Value [...] W/U Status Risk Notes Problem Morbid obesity (335594295) Morbid obesity (E66.01) Active confirmed Problem Plantar wart of left foot (96255218459973 102) Plantar wart of left foot (B07.0) Active confirmed Problem Acute maxillary sinusitis (60159383) Acute recurrent maxillary sinusitis (J01.01) Active confirmed Problem Obese class II (30652330325477 5) BMI 35.0-35.9,adult (Z68.35) Active confirmed Problem Migraine without aura, not refractory (495156070) Migraine without aura and without status migrainosus, not intractable (G43.009) Active confirmed Problem Obese class II (59283615013515 5) BMI 36.0-36.9,adult (Z68.36) Active confirmed Problem New daily persistent headache (08038838296006 5) New daily persistent headache (G44.52) Active confirmed Problem Dysphagia (41996903) Dysphagia, unspecified type (R13.10) Active confirmed Problem Atopic dermatitis (37429480) Atopic dermatitis, unspecified type (L20.9) Active confirmed Problem Body mass index 40+ - severely obese (501364801) Body mass index (BMI) of 40.1 to 44.9 in adult (Z68.41) Active confirmed Problem Missed period (39840798) Missed period (N92.6) Active confirmed Vital Signs Heart Rate 82 /min 06/21/2025 Blood pressure diastolic 72 mm Hg 06/21/2025 Height 61.25 in 06/21/2025 Blood pressure systolic 126 mm Hg 06/21/2025 Weight 223 lbs 06/21/2025 BMI 41.79 kg/m2 06/21/2025 Encounters Encounter Location Date Provider Diagnosis [facility] [address] [place] [id number] 09/12/2024 Shu Norwood URI (upper respirato ry infection) J06.9 [facility] [address] [place] [address] [place] [id number] 12/28/2024 Lili Crowdy Encounter for weight management Z76.89 and Body mass index (BMI) of 40.1 to 44.9 in adult Z68.41 [facility] [address] [place] [address] [place] [id number] 01/27/2025 Lili Crowdy Encounter for weight management Z76.89 and Body mass index (BMI) of 40.1 to 44.9 in adult Z68.41 [facility] [address] [place] [address] [place] [id number] 03/01/2025 Lili Crowdy Encounter for weight management Z76.89 and Body mass index (BMI) of 40.1 to 44.9 in adult Z68.41 [facility] [address] [place] [address] [place] [id number] 04/05/2025 Lili Crowdy Encounter for weight management Z76.89 ; Body mass index (BMI) of 40.1 to 44.9 in adult Z68.41 and Chronic eczema L30.9 [facility] [address] [place] [address] [place] [id number] 05/10/2025 Lili Crowdy Body mass index (BMI ) of 40.1 to 44.9 in adult Z68.41 and Encounter for weight management Z76.89 [facility] [address] [place] [address] [place] [id number] 06/21/2025 Lili Crowdy Body mass index (BMI ) of 40.1 to 44.9 in adult Z68.41 ; Encounter for weight management Z76.89 and Injury of left knee, initial encounter S89.92XA [facility] [address] [facility] [address] [place], [place] [id number] 05/31/2025 Leelee Walsh Assessments Encounter Date Diagnosis [...] [address], [place], [place], [id number], Insurance Providers Payer Name Payer Address Payer Phone Subscriber Number Group Number Insured Name Patient Relationship to Insured Coverage Start Date Coverage End Date [facility] [address] [address] [place] [address] [phone] [id number] Kandace Gallegos Self - patient is the insured Medical (General) History Medical History History ICD Code [facility] 01/2017 cellulitis right thigh COVID 19 infection, Jul 2020 Surgical History Surgery Date(Month/Year) tonsilectomy 08/21/15 cholecystectomy Jul 2018 Hospitalization History Reason Date(Month/Year) [facility]-left ankle pain 10/03
--- NOTE | 2025-06-27 07:42 | MR_ITS ---
FINAL REPORT CLINICAL HISTORY: left lateral knee pain , worse when standing for long periods of time , fall x 1.5 weeks ago , pt had bruising noted to lateral side of left knee COMPARISON: None FINDINGS: Multiplanar MR imaging was performed of the left knee. The anterior and posterior cruciate ligaments are intact. The quadriceps and patellar tendons are intact. There is a subtle tear of the posterior horn of the medial meniscus best seen on image #9 of series 4. The lateral meniscus is intact. The medial and lateral collateral ligaments appear intact. The medial and lateral retinacula appear intact. There is no evidence of bone marrow edema or osteochondral defect. No evidence of soft tissue inflammatory reaction. IMPRESSION: Subtle tear of the posterior horn of the medial meniscus, with an intact lateral meniscus. Reviewed, Interpreted and Dictated by Miguel Angel Cruz MD Transcribed by Victorina Phipps Authenticated and [facility]
--- OUTSIDE RECORDS SUMMARY | 2025-06-27 07:43 | XMS_ITS | Clinical Summary ---
Author Organization [facility] Address [address] [place] [address] Care Team Providers Care Welt Sole Layer Name Role Phone Manjinder Walsh MD Primary Care Provider [phone] Social History Tobacco Use Types Packs/Day Years [...] complete this topic Insurance R Care Teams Welt Sole Layer Relationship Specialty Start Date End Date Manjinder Walsh MD [address] [facility] [address] [place] [address] PCP - General Family Medicine 05/31/21
--- OUTSIDE RECORDS SUMMARY | 2025-06-27 07:43 | XMS_ITS | Clinical Summary ---
Author Organization [facility] Address [address] [place] [address] Care Team Providers Care Solutions Development Analyst Name Role Phone Manjinder Walsh MD Primary Care Provider [phone] Medications rifAMPin (Rifadin) 300 MG capsule Take [...] 2022 [facility]-Cervical Cancer Screening 2025 [facility]-HPV/Cotest 2025 [id number] Vaccine (3 - 2024- season) 2025 04/26/2021, [...] patient's age to complete this topic Insurance [facility] Care Teams Solutions Development Analyst Relationship Specialty Start Date End Date Manjinder Walsh MD [address] [facility] [address] [address] PCP - General 11/30/20
== END 2025-06-27 23:59 | disposition home or self-care (01) ==
LOC: RAD 07:39
PROVIDERS: PCP Family Medicine; Visit Provider Physician Assistant
DX: S83.242A Other tear of medial meniscus, current injury, left knee, initial encounter (principal); W19.XXXA Unspecified fall, initial encounter
CPT/HCPCS: 73721

== ENCOUNTER 2025-07-19 07:39 | Outpatient (CLI) | payer OTHER, SELFPAY ==
--- OUTSIDE RECORDS SUMMARY | 2024-06-20 08:30 | XMS_ITS ---
Author Organization [facility] Address [address] [facility] [address] [phone] Care Team Providers Care Mounter Automatic Name Role Phone Leelee Walsh Primary Care [...] Once a day 06/20/2024 Active Vital Signs Blood pressure systolic 110 mm Hg 06/20/20 24 Blood pressure diastolic 70 mm Hg 024 Heart Rate 82 /min 06/20/2024 Height 61.25 in 06/20/2024 Weight 218.6 lbs 06/20/2024 BMI 40.96 kg/m2 06/20/2024 Encounters Encounter Location Date Provider Diagnosis [facility] [address] [facility] [address] [place] [phone] 06/20/2024 Leelee Walsh Dyshidrotic eczema L30.1 Assessments [...] [address], [address], [place], [place], [phone], Progress Notes * Kandace GALLEGOSDOB:1995 (30 yo F)Acc No.[id number]:06/20/2024 Progress Notes Patient: Kandace ABEBE Provider: Leelee Walsh M.D. :1995 A ge:29 Y S ex:Female Date:06/20/2024 [facility] [id number] Subjective: * Chief Complaints: * 1 . [...] * Images: Billing Information: * Visit Code: 06937 Office Visit, Est Pt., Level 3. * Procedure Codes: * Electronic signature of Leelee Walsh MD on 07/19/2025 at 07:42 AM EST Sign off status: Pending * Provider: Leelee Walsh M.D. Date: 08/21/2023 Generated for Jasvir john/Damion/Antonino on: 07:42 AM EST History and Physical Notes * HPI (History of Present Illness) Category Sub-Category Detail Notes Category Not es Dermatology rash Examination Category Sub-Category Detail Notes Category Not es Dermatology Extremities: hands with inter digital eczematous skin changes, erythema, not excoriated.
--- OUTSIDE RECORDS SUMMARY | 2024-09-12 04:45 | XMS_ITS ---
Author Organization [facility] Address [address] [id number] Care Team Providers Care Health Safety Specialist Name Role Phone Leelee Walsh Primary Care Provider [phone] Shu Norwood Unavailable [phone] Allergies No Known Allergies Results Component Value [...] Duration: 5 day(s) 09/12/2024 Active Vital Signs Blood pressure systolic 118 mm Hg 09/12/19 25 Blood pressure diastolic 64 mm Hg 025 Heart Rate 80 /min 09/12/2024 Height 61.25 in 09/12/2024 Weight 218.0 lbs 09/12/2024 BMI 40.85 kg/m2 09/12/2024 Encounters Encounter Location Date Provider Diagnosis [facility] [address] [place] [phone] 09/12/2024 Shu Norwood URI (upper respirato ry [...] Provider Name:Lili victor, 07/26/2025 09:30:00 AM, 1210 [facility] 36 [facility], [address], [place], [phone], Progress Notes * Kandace GALLEGOSDOB:1995 (30 yo F)Acc No.[id number]:09/12/2024 Progress Notes Patient: Kandace ABEBE Provider: GAGAN Ross :1995 A ge:29 Y S ex:Female Date:09/12/2024 Address:[address] [place], [place] [address] [phone] Pcp:Leelee Walsh Subjective: * Chief Complaints: * [...] * Procedure Codes: 9 4760 [place], [address] CAPILLARY BLOOD DRAW, 30153 CBC WITH AUTO DIFF * Follow Up: p rn * Images: Billing Information: * Visit Code: 58739 Office Visit, Est Pt., Level 3. * Procedure Codes: [address] [place]. [address] CAPILLARY BLOOD DRAW. 55670 CBC WITH AUTO DIFF. * Electronic signature of Shruthi Norwood APRN on 07/19/2025 at 07:41 AM EST Sign off status: Pending * Provider: GAGAN Ross Date: 0 09/12/2024 Generated for Jasvir john/Damion/eTransmitting on: 1 07:41 AM EST History and Physical Notes * [...]
--- OUTSIDE RECORDS SUMMARY | 2024-12-28 10:15 | XMS_ITS ---
Author Organization [facility] Address 1210 [facility] [address] [phone] Care Team Providers Care Call Center Recruiter Name Role Phone Leelee Walsh Primary Care Provider [phone] Lili Mosher Unavailable [phone] Allergies No Known Allergies REASON FOR VISIT [...] Body mass index 40+ - severely obese (321160873) Body mass index (BMI) of 40.1 to 44.9 in adult (Z68.41) Active confirmed Vital Signs Blood pressure systolic 114 mm Hg 12/29/19 25 Blood pressure diastolic 72 mm Hg 025 Heart Rate 76 /min 12/28/2024 Height 61.25 in 12/28/2024 Weight 220.4 lbs 12/28/2024 BMI 41.3 kg/m2 12/28/2024 Encounters Encounter Location Date Provider Diagnosis [facility] [address] [phone] 12/28/2024 Lili Mosher Encounter for weight management [...] [address], [address], [place], [place], [phone], Progress Notes * Kandace GALLEGOSDOB:1995 (30 yo F)Acc No.[id number]:12/28/2024 Progress Notes Patient: Kandace ABEBE Provider: STU Chen :1995 A ge:29 Y S ex:Female Date:12/28/2024 Address:[address] [place] [phone] Pcp:Leelee Walsh Subjective: * Chief Complaints: * [...] * Images: Billing Information: * Visit Code: 45156 Office Visit, Est Pt., Level 3. * Procedure Codes: 1036F TOBACCO NON-USER. G8783 BP SCR PRFRM RCMDD DEFIND SCR INTVL. G8752 MOST RECENT SYSTOLIC BP < 140MM HG. G8754 MOST RECENT DIASTOLIC BP < 90MM HG. * Electronic signature of STU Valdivia on 07/19/2025 at 07:43 AM EST Sign off status: Pending * Provider: STU Chen Date: 0 12/28/2024 Generated for Jasvir john/Damion/Antonino on: 1 07:43 AM EST History and Physical Notes * HPI (History of Present Illness) Category Sub-Category Detail Notes Category Not es Constitutional weight loss Examination Category Sub-Category Detail Notes Category Not es General Examination Heart: RSR Lungs: clear to auscultatio n General Appearance: NAD Chest: normal shape and exp ansion
--- OUTSIDE RECORDS SUMMARY | 2025-01-27 04:45 | XMS_ITS ---
Author Organization Adele Address 1210 [facility] [address] [place] [id number] Care Team Providers Care Wild Oyster Harvester Name Role Phone Leelee Walsh Primary Care Provider [phone] Lili Mosher Unavailable [phone] Allergies No Known Allergies REASON FOR VISIT [...] Encounter Location Date Provider Diagnosis Adele 1210 [facility] [address] [place] [phone] 01/27/2025 Lili Mosher Encounter for weight management [...] [address], [place], [place], [id number], Progress Notes * Monica GALLEGOScatarinoDOB:1995 (30 yo F)Acc No.[id number]:01/27/2025 Progress Notes Patient: Kandace ABEBE Provider: STU Chen :1995 A ge:29 Y S ex:Female Date:01/27/2025 Address:[address] [place] [phone] Pcp:Leelee Walsh Subjective: * Chief Complaints: * [...] * Images: Billing Information: * Visit Code: 68714 Office Visit, Est Pt., Level 3. * Procedure Codes: 1036F TOBACCO NON-USER. G8783 BP SCR PRFRM RCMDD DEFIND SCR INTVL. 3074F SYST BP LT 130 MM HG. 3078F DIAST BP < 80 MM HG. * Electronic signature of STU Valdivia on 07/19/2025 at 07:41 AM EST Sign off status: Pending * Provider: STU Chen Date: 0 01/27/2025 Generated for Jasvir john/Damion/Antonino on: 1 07:41 AM EST History and [...]
--- OUTSIDE RECORDS SUMMARY | 2025-03-01 04:00 | XMS_ITS ---
Author Organization Adele Address 1210 [facility] [address] [place] [phone] Care Team Providers Care Tax Compliance Officer Name Role Phone Leelee Walsh Primary Care Provider Lili Mosher [phone] Allergies No Known Allergies REASON FOR VISIT [...] Encounter Location Date Provider Diagnosis Adele [address] [place] [phone] 03/01/2025 Lili Mosher Encounter for weight management [...] Name:Lili victor, 07/26/2025 09:30:00 AM, [address] [facility] [address], [address], [place], [place], [address], Progress Notes * SEDRICKMary KandaceDOB:1995 (30 yo F)Acc No.[id number]:03/01/2025 Progress Notes Patient: Kandace ABEBE Provider: STU Chen :1995 A ge:30 Y S ex:Female Date:03/01/2025 Address:[address] [place], [place] [phone] Pcp:Leelee Walsh Subjective: * Chief Complaints: * 1 . 1 month. * HPI: C onstitutional: 30 year old female presents with c/o weight loss P t here for a 1-month checkup on weight. Pt has lost a little bit of weight. Pt states no new concerns today.? * ROS: D ERMATOLOGY: no R sri. n o H dihn. G ASTROENTEROLOGY: no N ausea. n o [...] * Images: Billing Information: * Visit Code: 34110 Office Visit, Est Pt., Level 3. * Procedure Codes: 1036F TOBACCO NON-USER. 3075F SYST BP GE 130 - 139MM HG. 3078F DIAST BP < 80 MM HG. * Electronic signature of STU Valdivia on 07/19/2025 at 07:42 AM EST Sign off status: Pending * Provider: STU Chen Date: 0 03/01/2025 Generated for Jasvir john/Damion/Silvianosmitting on: 1 07:42 AM EST History and Physical Notes [...]
--- OUTSIDE RECORDS SUMMARY | 2025-04-05 05:00 | XMS_ITS ---
Author Organization [facility] Address [address] [facility] [address] [phone] Care Team Providers Care Lining Parts Sewer Name Role Phone Leelee Walsh Primary Care Provider Lili Mosher Unavailable [phone] Allergies No Known Allergies REASON FOR VISIT [...] Encounter Location Date Provider Diagnosis Adele [address] [facility] [address] [place] [phone] 04/05/2025 Lili Mosher Encounter for weight management [...] Name:Lili victor, 07/26/2025 09:30:00 AM, [address] [facility] [address], [place], [place], [phone], Progress Notes * Kandace GALLEGOSDOB:1995 (30 yo F)Acc No.[id number]:04/05/2025 Progress Notes Patient: Kandace ABEBE Provider: STU Chen :1995 A ge:30 Y S ex:Female Date:04/05/2025 Address:[facility] [address] [place] [place], [place] Pcp:Leelee Walsh Subjective: * Chief Complaints: [...] * Images: Billing Information: * Visit Code: 37272 Office Visit, Est Pt., Level 3. * Procedure Codes: 1036F TOBACCO NON-USER. 3074F SYST BP LT 130 MM HG. 3078F DIAST BP < 80 MM HG. * Electronic signature of STU Valdivia on 07/19/2025 at 07:42 AM EST Sign off status: Pending * Provider: STU Chen Date: 0 04/05/2025 Generated for Jasvir john/Damion/eTransmitting on: 1 07:42 AM EST History and [...]
--- OUTSIDE RECORDS SUMMARY | 2025-05-10 04:15 | XMS_ITS ---
Author Organization [facility] Address [address] [facility] [address] [phone] Care Team Providers Care Allocation Analyst Name Role Phone Leelee Walsh Primary Care Provider [phone] Lili Mosher Unavailable [phone] Allergies No Known Allergies REASON FOR VISIT [...] Location Date Provider Diagnosis [facility] [address] [place] [phone] 05/10/2025 Lili Mosher Body mass index (BMI [...] [address], [place], [place], [phone], Progress Notes * Monica GALLEGOScatarinoDOB:1995 (30 yo F)Acc No.[id number]:05/10/2025 Progress Notes Patient: Kandace ABEBE Provider: STU Chen :1995 A ge:30 Y S ex:Female Date:05/10/2025 Address:[address] [place] [phone] Pcp:Leelee Walsh Subjective: * Chief Complaints: * [...] * Images: Billing Information: * Visit Code: 48940 Office Visit, Est Pt., Level 3. * Procedure Codes: 1036F TOBACCO NON-USER. 3074F SYST BP LT 130 MM HG. 3078F DIAST BP < 80 MM HG. * Electronic signature of STU Valdivia on 07/19/2025 at 07:41 AM EST Sign off status: Pending * Provider: STU Chen Date: 1 Generated for Jasvir john/Damion/Silvianosmitting on: 07:41 AM EST History and Physical Notes [...]
--- OUTSIDE RECORDS SUMMARY | 2025-06-21 04:00 | XMS_ITS ---
Author Organization [facility] Address [address] [facility] [address] [place] [id number] Care Team Providers Care Butter Grader Name Role Phone Leelee Walsh Primary Care Provider Lili Mosher Unavailable [phone] Allergies No Known Allergies Results Component Value Reference Range Notes MRI : Knee, left, without co ntrast Reviewed date:06/28/2025 04:17:56 PM Interpretation: Performing Lab: Notes/Report: REASON FOR VISIT 1 month Medications Medication SIG (Take, Route, Frequency, Duration) Notes Start Date End Date Status Zoloft 25 MG 1 tablet Orally Once a day; Duration: 30 day(s) Active Vital Signs Blood pressure systolic 126 mm Hg 06/21/20 25 Blood pressure diastolic 72 mm Hg 025 Heart Rate 82 /min 06/21/2025 Height 61.25 in 06/21/2025 Weight 223 lbs 06/21/2025 BMI 41.79 kg/m2 06/21/2025 Encounters Encounter Location Date Provider Diagnosis [facility] [address] [place] [id number] 06/21/2025 Lili Mosher Body mass index (BMI ) of 40.1 to 44.9 in adult Z68.41 ; Encounter for weight management Z76.89 and Injury of left knee, initial encounter S89.92XA Assessments Encounter Date Diagnosis (ICD Code) Assessment Notes Treatment Notes Treatment Clinical Notes Section Notes 06/21/2025 Body mass index (BMI) of 40.1 to 44.9 in adult (ICD-10 - Z68.41) 06/21/2025 Encounter for weight management (ICD-10 - Z76.89) Currently doing a low carb diet, weakness is sweets, strength is being around others who have had weight loss surgery Currently doing exercise walking 30 minutes/day 06/21/2025 Injury of left knee, initial encounter (ICD-10 - S89.92XA) Plan Of Treatment Treatment Notes Assessment Notes Encounter for weight management Currently doing a low carb diet, weakness is sweets, strength is being around others who have had weight loss surgery Currently doing exercise walking 30 minutes/day Next Appt Details Follow Up: via phone to repo rt test results, Reason: Provider Name:Lili Edmonds y, 07/26/2025 09:30:00 AM, [address], [place], [place], [address], Progress Notes * Kandace GALLEGOSDOB:1995 (30 yo F)Acc No.[id number]:06/21/2025 Progress Notes Patient: Kandace ABEBE Provider: STU Chen :1995 A ge:30 Y S ex:Female Date:06/21/2025 Address:[facility] [place] [place] Pcp:Leelee Walsh Subjective: * Chief Complaints: * 1 . 1 month. * HPI: C onstitutional: 30 year old female presents with c/o weight loss P t here for 1 month checkup on weight loss. Pt states have gone up some from last visit. K nee/Ontiveros: Fall P atient states that she had a fall and is having some pain in her left leg from it. . * ROS: D ERMATOLOGY: no R [...] tablet Orally Once a day , Discontinued Triamcinolone Acetonide 0.1 % Ointment 1 application Externally Twice a day , Medication List reviewed and reconciled with the patient * Allergies: N .K.D.A. Objective: * Vitals: W t: 223, Temp: 98.0, BP: 126/72, HR: 82, Nurse: pe, Ht: 61.25, BMI:41.79. * Examination: G eneral Examination: General Appearance: N AD. C hest: n ormal shape and expansion. H eart: R SR. L ungs: c lear to auscultation. K nee / Ontiveros: Knee: l eft. I nspection: S ome purple discoloration noted to left lateral thigh and left knee area. P alpation: n on-tender with palpation. C ollateral ligaments: i ntact medially and laterally. R yannick of motion: n ormal flexion and extension. M cmurray: n egative. D rawer test: n egative. P atellofemoral joint: n o crepitations. Assessment: * Assessment: 1. E ncounter for weight management - Z76.89 (Primary) 2 . B inés mass index (BMI) of 40.1 to 44.9 in adult - Z68.41 3 . I njury of left knee, initial encounter - S89.92XA Plan: * Treatment: 2. I njury of left knee, initial encounter I maging: MRI : Knee, left, without contrast (Performed Date - 06/27/2025) * Follow Up: v ia phone to report test results * Images: Billing Information: * Visit Code: 39793 Office Visit, Est Pt., Level 4. * Procedure Codes: * Electronic signature of STU Valdivia on 07/19/2025 at 07:42 AM EST Sign off status: Pending * Provider: STU Chen Date: 08/22/2024 Generated for Printi ng/Faxing/eTransmitting on: 07:42 AM EST History and Physical Notes * HPI (History of Present Illness) Category Sub-Category Detail Notes Category Not es Knee/Ontiveros Fall Patient states t hat she had a fall and is having some pain in her left leg from it. Constitutional weight loss Pt here for 1 mo nt checkup on weight loss. Pt states have gone up some from last visit Examination Category Sub-Category Detail Notes Category Not es General Examination Heart: RSR Lungs: clear to auscultatio n General Appearance: NAD Chest: normal shape and exp ansion Knee / Ontiveros Roshan: negative Drawer test: negative Patellofemoral joint: no crepitations Palpation: non-tender with palp ation Knee: left Inspection: Some purple discolor ation noted to left lateral thigh and left knee area Range of motion: normal flexion and e xtension Collateral ligaments: intact medially an d laterally
--- OUTSIDE RECORDS SUMMARY | 2025-07-05 04:15 | XMS_ITS ---
Author Organization [facility] Address [address] [place] [address] [id number] Care Team Providers Care Mixing Machine Tender Name Role Phone Leelee Walsh Primary Care Provider [phone] Lili Mosher Unavailable [phone] Allergies No Known Allergies Results Component Value Reference Range Notes CBC Fingerstick (in house) Reviewed date:07/05/2025 11:44:44 AM Interpretation: Performing Lab: Notes/Report: wbc 7.4 3.5 - 10 lym 28.4 15 - 50 mid 6.2 2 - 15 gran 65.4 35 - 80 rbc 5.17 3.5 - 5.5 hgb 14.5 11.5 - 16.5 hct 43.4 35 - 55 mcv 83.9 75 - 100 mch 28.0 25 - 35 mchc 33.4 31 - 38 plat 305 100 - 400 REASON FOR VISIT cough & congestion Medications Medication SIG (Take, Route, Frequency, Duration) Notes Start Date End Date Status Bromfed DM 30-2-10 MG/5ML 5-10 mL Orally 4 times a day, prn 07/05/2025 Active Zoloft 25 MG 1 tablet Orally Once a day; Duration: 30 day(s) Active Vital Signs Blood pressure systolic 130 mm Hg 07/05/20 25 Blood pressure diastolic 70 mm Hg 025 Heart Rate 84 /min 07/05/2025 Height 61.25 in 07/05/2025 Weight 220 lbs 07/05/2025 BMI 41.23 kg/m2 07/05/2025 Encounters Encounter Location Date Provider Diagnosis [facility] [facility] 36 [facility] [address] [place] [id number] 07/05/2025 Lili Mosher Acute URI J06.9 Assessments Encounter Date Diagnosis (ICD Code) Assessment Notes Treatment Notes Treatment Clinical Notes Section Notes 07/05/2025 Acute URI (ICD-10 - J06.9) fluids, rest, supportive measures for fever/symptom relief Plan Of Treatment Medication Medication Name Sig Start Date Stop Date Notes Bromfed DM 30-2-10 MG/5ML 5-10 mL Orally 4 times a day, prn 07/05/2025 Treatment Notes Assessment Notes Acute URI fluids, rest, suppor tive measures for fever/symptom relief Next Appt Details Follow Up: prn, Reason: Provider Name:Lili victor, 07/26/2025 09:30:00 AM, [facility] [address] [facility], [address], [place], [id number], Progress Notes * Kandace GALLEGOSDOB:1995 (30 yo F)Acc No.[id number]:07/05/2025 Progress Notes Patient: Monica ABEBEecca Provider: STU Chen :1995 A ge:30 Y S ex:Female Date:07/05/2025 Address:[address] [place], [place] [id number] Pcp:Leelee Walsh Subjective: * Chief Complaints: * 1 . Cough & congestion. * HPI: E NT/respiratory: Pt states it started two weeks ago and went to [facility] and then few days after she went to [facility] ER, and they gave her amoxicillin, steroids, and flonase. She is a little better but still not well. 30 year old female presents with c/o cough s mall y ellow sputum production. c/o nasal congestion a ll the time, runny nose, green drainage, yellow drainage, clear drainage. c/o facial pain/pressure. c/o ear stopped up b oth.? Denies : sore throat. D enies : Fever. D enies : ear pain. D enies : post nasal drainage. D enies : Chest Pain. D enies : Short of Breath. D enies : headache. D enies : chest congestion. D enies : dizziness. D enies : body aches. D enies : ringing in ear. * ROS: D ERMATOLOGY: no R sri. [...] N .K.D.A. Objective: * Vitals: W t: 220, Temp: 98.1, BP: 130/70, HR: 84, Nurse: ramon, Ht: 61.25, BMI:41.23. * Examination: E NT/Respiratory: General Appearance: N AD. E ars: a uditory canals normal bilaterally, tympanic membranes with effusion, no erythema. N ose : t urbinates red, congested. S inuses : t kendell maxillary sinuses bilaterally. O ral cavity : n o erythema or exudate seen on pharynx. N kendy : n o cervical lymphadenopathy. H eart : R RR, normal S1 S2, no murmurs. L ungs: c lear to auscultation bilaterally. ? Assessment: * Assessment: 1. Silvana godwin URI - J06.9 (Primary) Plan: * Treatment: Value Reference Range w bc 7.4 3.5 - 10 * l ym 28.4 15 - 50 * m id 6.2 2 - 15 * g ran 65.4 35 - 80 * r bc 5.17 3.5 - 5.5 * h gb 14.5 11.5 - 16.5 * h ct 43.4 35 - 55 * m cv 83.9 75 - 100 * m ch 28.0 25 - 35 * m chc 33.4 31 - 38 * p lat 305 100 - 400 * Verona Zheng 07/05/2025 11:06:26 AM EST > Provider reviewed results while patient in office. Notes: fluids, rest, supportive measures for fever/symptom relief?? * Procedure Codes: 3 6416 CAPILLARY BLOOD DRAW, 63861 CBC WITH AUTO DIFF * Follow Up: p rn * Images: Billing Information: * Visit Code: 46918 Office Visit, Est Pt., Level 3. * Procedure Codes: 20104 CAPILLARY BLOOD DRAW. 25390 CBC WITH AUTO DIFF. * Electronic signature of STU Valdivia on 07/19/2025 at 07:42 AM EST Sign off status: Pending * Provider: STU Chen Date: 09/05/2024 Generated for Jasvir john/Damion/eTransmitting on: 07:42 AM EST History and Physical Notes * HPI (History of Present Illness) Category Sub-Category Detail Notes Category Not es ENT/respiratory sore throat facial pain/pressure ear pain Short of Breath Chest Pain cough small yellow sputum production Fever post nasal drainage headache chest congestion nasal congestion all the time, runny nose, green drainage, yellow drainage, clear drainage dizziness body aches ear stopped up both ringing in ear Examination Category Sub-Category Detail Notes Category Not es ENT/Respiratory Oral cavity : no erythema or exudate s een on pharynx Sinuses : tender maxillary sin uses bilaterally Ears: auditory canals norm al bilaterally, tympanic membranes with effusion, no erythema Neck : no cervical lymphade nopathy Heart : RRR, normal S1 S2, n o murmurs Lungs: clear to auscultatio n bilaterally General Appearance: NAD Nose : turbinates red, steve ested
--- OUTSIDE RECORDS SUMMARY | 2025-07-19 07:41 | XMS_ITS | Clinical Summary ---
Author Organization [facility] Address [address] [place] [address] Care Team Providers Care Psychiatric Therapist Name Role Phone Manjinder Walsh MD Primary Care Provider [phone] Medications rifAMPin (Rifadin) 300 MG capsule Take [...] Date Last Done Comments [facility]-Depression Screening 1995 [facility]-/Child/Adol SDOH Screenings 1995 [facility]-Varicella Vaccines (1 of 2 - 13+ 2-dose series) 02/26/2008 [facility]- SDOH Screenings 2013 [facility]-Adult SDOH Screenings 2013 [facility]-DTaP,Tdap,and Td Vaccines (1 - Tdap) 2014 [facility]-Hepatitis B Vaccines (1 of 3 - 19+ 3-dose series) 2014 [facility]-Pap Smear 02/26/2016 [facility]-Cervical Cancer Screening 2025 [facility]-HPV/Cotest 2025 [id number]-[id number]-34 Vaccine (3 - season) 2025 04/26/2021, 04/05/2021 [facility]-Influenza Vaccine (#1) 2025 [facility]-Zoster Vaccines (1 of 2) 2045 HPV Vaccines (No Doses Required) Completed [facility]-HIB Vaccines Aged Out No longer e [...] patient's age to complete this topic Insurance [facility] Care Teams Psychiatric Therapist Relationship Specialty Start Date End Date Manjinder Walsh MD [facility] [id number] PCP - General 11/30/20
--- OUTSIDE RECORDS SUMMARY | 2025-07-19 07:41 | XMS_ITS | Clinical Summary ---
Author Organization [facility] Address [address] [place] [address] Phone Care Team Providers Care Public Relations Writer Name Role Phone Esequiel BARGER, Donovan Ponce [phone] Conditions or Problems Problem Name Problem Code Onset Date Status Entry Date Provider Comment Standard Description Annotate Elevated Liver Function Tests (LFT) 775432731 (SNOMED CT) Active Donovan Iraheta MD Liver [...] by mouth once a day 5 rifampin 90025452023 Donovan Iraheta MD VITAMINS 28-0.8 MG TABS Take 1 tablet by mouth once a day pnv b#[id number]-issa us fumarate-fa [id number] Roque Zoe Medications Administered No information available. Allergies, Adverse Reactions, Alerts No information available. Results Date Name Value Unit Range Flag Description Lab Report: QUANTIFERON TB G OLD PLUS CLIENT INCUBATED [id number]-GE-[id number] Positive Negative A GE use on ly - for LinkLogic import when terms are not otherwise specified External Other: Patient port al update - Email [facility] ... PAT E-MAIL [email or web address] patient's e-mail address External Other: Patient port al update - [facility], [facility] ... PATPORTALPIN Active This bipin l be used to establish a PIN number for patients to register in the Patient Portal. Office Visit: rm 4 MEDS REVIEW Done Documenta tion of current medications (procedure) DIET EDGE TRIMMING MACHINE OPERATOR Yes - Overweight Dietary management education, guidance, and counseling (procedure) SMOK STATUS Never smoker Toba tobacco buyer smoking status Plan of Care Type Date Detail Pending order CMP Pending order New Oral Antibio tic Pending order Quantiferon Gold TB Assay Pending order T-SPOT Procedures Code Procedure Name Date Entry Date CPT-10647 CMP CPT-rick New Oral Antibiotic CPT-15495 Quantiferon Gold TB Assay 20 09/06/12 CPT-12433 T-SPOT Vital Signs Date Name Value Unit [...]
--- OUTSIDE RECORDS SUMMARY | 2025-07-19 07:42 | XMS_ITS | Patient Health Record ---
Author Organization [facility] Address [address] [facility] [address] [id number] Care Team Providers Care Apron Trimmer Name Role Phone Leelee Walsh Primary Care Provider Shu Norwood Unavailable [phone] Lili Moshre Unavailable [phone] Allergies No Known Allergies Results Component Value [...] - 38 plat 166 100 - 400 MRI : Knee, left, without co ntrast Reviewed date:06/28/2025 04:17:56 PM Interpretation: Performing Lab: Notes/Report: CBC Fingerstick (in house) Reviewed date:07/05/2025 11:44:44 [...] - 38 plat 305 100 - 400 Reason For Referral No [...] W/U Status Risk Notes Problem Morbid obesity (122544655) Morbid obesity (E66.01) Active confirmed Problem Plantar wart of left foot (73607759847267 102) Plantar wart of left foot (B07.0) Active confirmed Problem Acute maxillary sinusitis (73721922) Acute recurrent maxillary sinusitis (J01.01) Active confirmed Problem Obese class II (25482738198902 5) BMI 35.0-35.9,adult (Z68.35) Active confirmed Problem Migraine without aura, not refractory (526159597) Migraine without aura and without status migrainosus, not intractable (G43.009) Active confirmed Problem Obese class II (38656552326018 5) BMI 36.0-36.9,adult (Z68.36) Active confirmed Problem New daily persistent headache (54769646882231 5) New daily persistent headache (G44.52) Active confirmed Problem Dysphagia (49862454) Dysphagia, unspecified type (R13.10) Active confirmed Problem Atopic dermatitis (10283972) Atopic dermatitis, unspecified type (L20.9) Active confirmed Problem Body mass index 40+ - severely obese (170077957) Body mass index (BMI) of 40.1 to 44.9 in adult (Z68.41) Active confirmed Problem Missed period (51178947) Missed period (N92.6) Active confirmed Vital Signs Heart Rate 84 /min 07/05/2025 Blood pressure diastolic 70 mm Hg 07/05/2025 Height 61.25 in 07/05/2025 Blood pressure systolic 130 mm Hg 07/05/2025 Weight 220 lbs 07/05/2025 BMI 41.23 kg/m2 07/05/2025 Encounters Encounter Location Date Provider Diagnosis [facility] [address] [facility] [address] [id number] 09/12/2024 Shu Norwood URI (upper respirato ry infection) J06.[address] [facility] [address] [facility] [address] [id number] 12/28/2024 Lili Crowdy Encounter for weight management Z76.89 and Body mass index (BMI) of 40.1 to 44.9 in adult Z68.[address] [facility] [address] [facility] [address] [id number] 01/27/2025 Lili Crowdy Encounter for weight management Z76.89 and Body mass index (BMI) of 40.1 to 44.9 in adult Z68.[address] [facility] [address] [facility] [address] [id number] 03/01/2025 Lili Crowdy Encounter for weight management Z76.89 and Body mass index (BMI) of 40.1 to 44.9 in adult Z68.[address] [facility] [address] [facility] [address] [id number] 04/05/2025 Lili Crowdy Encounter for weight management Z76.89 ; Body mass index (BMI) of 40.1 to 44.9 in adult Z68.41 and Chronic eczema L30.9 [facility] [address] [facility] [address] [id number] 05/10/2025 Lili Mosher Body mass index (BMI ) of 40.1 to 44.9 in adult Z68.41 and Encounter for weight management Z76.[address] [facility] [address] [facility] [address] [place] [id number] 06/21/2025 Lili Mosher Body mass index (BMI ) of 40.1 to 44.9 in adult Z68.41 ; Encounter for weight management Z76.89 and Injury of left knee, initial encounter S89.92XA [facility] [address] [facility] [address] [place], [place] [id number] 07/05/2025 Lili Mosher Acute URI J06.9 [facility] [address] [place], [place] [id number] 05/31/2025 Leelee Lewis [place] [facility] [address] [facility] [address] [place] [id number] 06/28/2025 Lili Mosher Assessments Encounter Date Diagnosis (ICD Code) Assessment [...] surgery Currently doing exercise walking 30 minutes/day 07/05/2025 Acute URI (ICD-10 - J06.9) fluids, rest, supportive measures for fever/symptom relief 06/21/2025 Injury of left knee, initial encounter [...] Of Treatment Next Appt Details Provider Name:Lili victor, 07/26/2025 09:30:00 AM, [address] [facility], [address], [place], [id number], Insurance Providers Payer Name Payer Address Payer Phone Subscriber Number Group Number Insured Name Patient Relationship to Insured Coverage Start Date Coverage End Date [facility] [address] [address] [place] [address] [id number] Kandace Gallegos Self - patient is the insured Medical (General) History Medical History History ICD Code UTC 01/2017 cellulitis right thigh COVID 19 infection, Jul 2020 Surgical History Surgery Date(Month/Year) tonsilectomy 08/21/15 cholecystectomy Jul 2018 Hospitalization History Reason Date(Month/Year) [facility]-left ankle pain 10/03
--- OUTSIDE RECORDS SUMMARY | 2025-07-19 07:43 | XMS_ITS | Clinical Summary ---
Author Organization [facility] Address [address] [place] [address] Care Team Providers Care Legal Instructor Name Role Phone Manjinder Walsh MD Primary Care Provider [phone] Social History Tobacco Use Types Packs/Day Years [...] complete this topic Insurance R Care Teams Legal Instructor Relationship Specialty Start Date End Date Manjinder Walsh MD [address] [facility] [address] [place] [address] PCP - General Family Medicine 05/31/21
--- NOTE | 2025-07-19 08:01 | XR_ITS ---
PROCEDURE INFORMATION: Exam: XR Chest Exam date and time: 07/19/2025 8:02 AM Age: 30 years old Clinical indication: Screening exam; Pre-operative exam; Other: Prior exposure to tb, pre op TECHNIQUE: Imaging protocol: Radiologic exam of the chest. Views: 2 views. COMPARISON: CR XR CHEST 2V 03/11/2024 9:11 AM FINDINGS: Lungs: Unremarkable. No consolidation. Pleural spaces: Unremarkable. No pleural effusion. No pneumothorax. Heart/Mediastinum: Unremarkable. No cardiomegaly. Bones/joints: Unremarkable. Other findings: A Juliet turned down volume little bit IMPRESSION: No acute findings.
[2025-07-19 08:06] LABS: Hematocrit 36.5 % (37.0-47.0); Hemoglobin 12.3 g/dL (12.2-16.2); Immature Granulocytes % 0.4 %; Mean Corpuscular HGB Conc 33.7 g/dL (31.8-35.4); Mean Corpuscular Hemoglobin 28.2 pg (27.0-31.2); Mean Corpuscular Volume 83.7 fl (81-99); Nucleated Red Blood Cells % 0 %; Platelet Count 269 K/mm3 (142-424); Red Blood Count 4.36 M/mm3 (4.20-5.40); Red Cell Distribution Width-SD 40.4 fL; White Blood Count 7.6 K/mm3 (4.8-10.8)
[2025-07-19 08:23] LABS: Hemoglobin A1C 5.2 % (4.0-6.0)
[2025-07-19 08:36] LABS: Albumin Level 4.3 g/dl (3.5-5.0); Chloride 105 mmol/L (98-107); Sodium 139 mmol/L (136-145)
[2025-07-19 08:37] LABS: Potassium 4.3 mmoL/L (3.5-5.1)
[2025-07-19 08:39] LABS: Alanine Aminotransferase 16 U/L (12-78); Albumin/Globulin Ratio 1.8 (1.1-1.8); Alkaline Phosphatase 111 U/L (38-126); Anion Gap 12.3 mEq/L (5-15); Aspartate Amino Transferase 21 U/L (14-36); Bilirubin,Total 0.4 mg/dl (0.2-1.3); Blood Urea Nitrogen 19 mg/dl (7-17); Carbon Dioxide 26 mmol/L (22.0-30.0); Cholesterol 136 mg/dl (140-200); Creatinine,Serum 0.80 mg/dl (0.52-1.04); Estimated Glomerular Filt Rate 84 ml/min (>60); GFR (African American) 102 ML/MIN (>60); Globulin 2.4 g/dL (1.3-3.2); Iron 56 ug/dL (37-170); Total Protein,Serum 6.7 g/dl (6.3-8.2); Triglycerides 103 mg/dl (30-150)
[2025-07-19 08:40] LABS: Calcium 9.3 mg/dl (8.4-10.2); Glucose 88 mg/dl (74-100); HDL Cholesterol 43 mg/dl (40-60)
[2025-07-19 08:54] LABS: Total Iron Binding Capacity 284 ug/dL (265-497)
[2025-07-19 08:58] LABS: 25-OH Vitamin D, Total 37.6 ng/mL (30-100); Free T4 (Free Thyroxine) 0.98 ng/dl (0.78-2.19)
[2025-07-19 09:11] LABS: Thyroid Stimulating Hormone 2.55 uIU/mL (0.465-4.68)
[2025-07-19 09:48] LABS: Folate 9.37 ng/mL
[2025-07-20 14:38] LABS: Ferritin 27.0 ng/ml (6.24-137)
== END 2025-07-19 23:59 | disposition home or self-care (01) ==
LOC: RAD 07:40
PROVIDERS: PCP Family Medicine; Visit Provider Physician Assistant
DX: Z01.811 Encounter for preprocedural respiratory examination (principal); K31.89 Other diseases of stomach and duodenum; E66.813 Obesity, class 3; Z68.41 Body mass index [BMI] 40.0-44.9, adult; Z13.89 Encounter for screening for other disorder
CPT/HCPCS: 36415; 71046; 80053; 80061; 82306; 82728; 82746; 83013; 83014; 83036; 83540; 83550; 83921; 83970; 84425; 84439; 84443; 84446; 84590; 85025